=== PATIENT | male | born 1955 | race Caucasian/White ===

== ENCOUNTER 2023-12-23 20:16 | Inpatient (IN) | payer OTHER, SELFPAY ==
[2023-12-23 14:48] VITALS: BMI 32.4
[2023-12-23 14:55] LABS: Glucose - Point of Care 110 mg/dl (70-99)
[2023-12-23 15:00] VITALS: BP 157/80
[2023-12-23 15:22] LABS: % Basophils 0.4 % (0-2); % Eosinophils 0.3 % (0-6); % Immature Granulocytes 1.3 % (0-0.5); % Lymphocytes 10.2 % (20.5-51.1); % Monocytes 11.5 % (1.7-9.3); % Neutrophils 76.3 % (42.2-75.2); Absolute Immature Granulocytes 0.1 10^3/uL (0-0.05); Absolute Monocytes 1.2 10^3/uL (0.1-0.6); Absolute Neutrophils 7.6 10^3/uL (1.4-6.5); Hemoglobin 13.2 g/dL (13.0-18.0); Mean Corp Hgb Conc. 34.7 g/dL (33.0-37.0); Mean Corpuscular Hgb 32.8 pg (27.0-31.0); Mean Corpuscular Volume 94.5 fL (80.0-94.0); Mean Platelet Volume 9.8 fL (7.4-10.4); Nucleated Red Blood Cells % 0 % (-); Platelet Count 216 10^3/uL (130-400); Red Blood Cell Count 4.02 10^6/uL (4.70-6.10); Red Cell Dist. Width 14.5 % (11.5-14.5)
--- NOTE | 2023-12-23 15:30 | EDRN ---
PER EMS: The sisters who were in the home stated that jsoe daniel had called aging services and department of aging r/t condition of Pt home and inability to care for himself. EMS stated that there was a lot of moldy/ spoiled food left out on the counters
and around the residence.
[2023-12-23 15:38] LABS: ALT (SGPT) 19 U/L (0-50); AST (SGOT) 33 U/L (17-59); Albumin 3.7 g/dl (3.5-5.0); Alkaline Phosphatase 64 U/L (38-126); Blood Urea Nitrogen 10 mg/dl (9-20); Calcium 8.9 mg/dl (8.4-10.2); Carbon Dioxide 28 mmol/L (22-30); Chloride 102 mmol/L (98-107); Estimated Creatinine Clearance 119 ml/min; Glucose 105 mg/dl (70-99); Potassium 3.9 mmol/L (3.5-5.1); Sodium 138 mmol/L (135-145); Total Bilirubin 0.7 mg/dl (0.2-1.3); Total Protein 6.9 g/dl (6.3-8.2); eGFR > 60.00
--- NOTE | 2023-12-23 15:57 | ED.GENMED ---
History of Present Illness
General
Chief Complaint: Blood Sugar Problem
Source: patient, records and ambulance crew
Exam Limitations: none
Time Seen by Provider: 12/23/23 14:52
Nursing documentation reviewed up to this point in time: agreed with
Travel History
Have you had any contact with someone who has COVID-19?: No
Do you have any symptoms of coronavirus? Fever > 100 degrees, chills, cough, shortness of breath, sore throat, loss of taste or smell, muscle aches, or headache?: No
History of Present Illness
History of Present Illness:
Patient is 68-year-old diabetic who was found to have a blood sugar around 10 today and was given D10 by paramedics getting his blood sugar up to over 100. Patient had not been [place] for 3 days from his sister who stopped by and found the patient.
Patient denies any head or neck pain. Patient denies chest pain, shortness of breath or palpitations. Patient denies fever or chills. Patient denies any abdominal pain, nausea, vomiting, diarrhea. Patient denies any extremity pain. Patient has
a history of similar episodes of taking insulin and not eating. Patient also has a history of alcohol abuse.
Past History
Past History
ED Past Medical History: GERD (Gastritis), HTN, IDDM, Seizures, Psychiatric (bipolar disorder, panic disorder, suicide attempt, Depression) and Other (Anxiety, alcohol abuse, bipolar disorder, arthritis, lumbar disc disease)
ED Past Surgical History: Other (partial gastrectomy 3/4 stomach removed after drinking bleach, hernia repair)
Social History
Tobacco: Former smoker
Alcohol: Chronic alcoholic
Drug: None
Personal:
Living: alone
Employment: Disabled
Family History
Family History: Other (non contributory)
Review of Systems
Review of Systems
All Other Systems: ROS reviewed and negative except as documented in HPI and ROS
Constitutional: Reports no symptoms
EENT: Reports no symptoms
Respiratory: Reports no symptoms
Cardiac: Reports no symptoms
ABD/GI: Reports no symptoms
: Reports no symptoms
Musculoskeletal: Reports no symptoms
Skin: Reports no symptoms
Neurological: Reports no symptoms
Hematologic/Lymphatic: Reports no symptoms
Phy Exam
Physical Exam
Physical Exam:
Physical Exam
General: No apparent distress, alert and appropriate, well nourished, well hydrated. Cool to the touch
HENT: Normocephalic and atraumatic as well as nontender, supple with no lymphadenopathy, no thyromegaly
Eyes: Clear sclera, conjuctiva without injection
Heart: Regular rhythm and rate. No S3, S4. No murmur. No NVD, bruit
Lungs: No respiratory distress, no stridor, lung sounds clear and equal bilaterally, chest wall symmetrical and nontender
Abdomen: Soft, nontender, no organomegaly, BS good
Neuro: Alert and oriented x 3, CN II - XII intact, no motor focality, no cerebellar dysfunction
Skin: no rash
Psychiatric: well kept. interactive and cooperative
Extremities: No edema, cyanosis, tenderness, Good and equal peripheral pulses.
Course
Orders/Labs/Results
Orders:
Orders
12/23/23 14:52
EKG [Electrocardiogram (*1)] Urgent
Reason for Study: Shortness of Breath
12/23/23 14:53
EKG- Treatment ONCE
12/23/23 14:56
Urinalysis Reflex To Culture Urgent
12/23/23 15:01
Alcohol Urgent
Complete Blood Count/With Diff Urgent
Comprehensive Metabolic Panel Urgent
Abnormal Lab Results
12/23/23 12/23/23 12/23/23
14:54 15:01 18:20
RBC 4.02 L 10^6/uL
(4.70-6.10)
Hct 38.0 L %
(39.0-52.0)
MCV 94.5 H fL
(80.0-94.0)
MCH 32.8 H pg
(27.0-31.0)
Abs Immat Gran (auto) 0.1 H 10^3/uL
(0-0.05)
Absolute Neuts (auto) 7.6 H 10^3/uL
(1.4-6.5)
Absolute Lymphs (auto) 1.0 L 10^3/uL
(1.2-3.4)
Absolute Monos (auto) 1.2 H 10^3/uL
(0.1-0.6)
Immature Gran % 1.3 H %
(0-0.5)
Neutrophils % 76.3 H %
(42.2-75.2)
Lymphocytes % 10.2 L %
(20.5-51.1)
Monocytes % 11.5 H %
(1.7-9.3)
Glucose 105 H mg/dl
(70-99)
POC Glucose 110 H mg/dl 228 H mg/dl
(70-99) (70-99)
12/23/23 15:01
12/23/23 15:01
Vital Signs
Initial and Last Documented VS:
Initial Vital Signs
Temp Pulse Resp
98.5 F 106 18
12/23/23 14:48 12/23/23 14:48 12/23/23 14:48
Last Documented Vital Signs
Temp Pulse Resp BP Pulse Ox
97.4 F 81 19 135/76 97
12/23/23 17:01 12/23/23 18:30 12/23/23 18:30 12/23/23 18:13 12/23/23 18:30
*Radiology
Radiology exam reviewed: other (na)
*Pulse Oximetry
Patient hypoxic: no
*EKG
Interpreted by ED Provider?: Yes
EKG Intrepretation Date: 12/23/23
EKG Intrepretation Time: 16:00
Interpretation: normal
Comparison EKG: no changes
Heart Rate: 74
Rate: normal
Rhythm: sinus
[place]: normal axis
Interval: normal interval
QRS Pattern: normal QRS
Ischemia: no ischemia
*Box Nailer Interpretation
Rate: normal
Interpretation: normal
Heart Rate: 80
Rhythm: sinus
*Critical Care Note
Total Time (30-74mins, 75-104mins- exclusive of procedures): Not Applicable
Update Note
Update Note:
Patient has become Normothermic. Anticipated being able to send the patient home once this occurred. However the department on the aging called and the patient lives in the high level that is disheveled without food and they are asking that we
keep the patient has a social admission.
ED Attending Note
-
Portions of this chart may have been created with voice recognition software.� Occasional wrong word or��sound alike� substitutions may have occurred due to the inherent limitations of voice recognition software.
Discharge Plan
Departure
Patient Disposition: Admit
Date of Disposition: 12/23/23
Time of Disposition: 19:09
Admit to: Med/Surg
Admit to doctor: Hospitalist
Presentation/result/management discussed w/ accepting MD/DO: Hospitalist
Patient with high blood pressure during this ER visit?: No
Condition: Fair
Covid-19: Not Applicable
Discharge Problem:
Hypothermia, Hypoglycemia, Hospital admission due to social situation
Prescriptions:
No Action
furosemide 20 mg tablet
20 mg PO WEEKLY
Rx Instructions:
m/w/f
quetiapine 200 mg Tablet
200 mg PO DAILY
Rx Instructions:
QUETIAPINE 200MG IN AM AND QUETIAPINE ER 800MG AT BEDTIME
thiamine HCl (vitamin B1) [Vitamin B-1] 100 mg Tablet
100 mg PO DAILY
buspirone 10 mg Tablet
10 mg PO TID
divalproex 500 mg Tablet Extended Release 24 Hr
1,000 mg PO HS
gabapentin 300 mg Capsule
300 mg PO TID
mirtazapine 45 mg Tablet
45 mg PO HS
aspirin 81 mg Tablet,Chewable
81 mg PO DAILY
quetiapine 400 mg Tablet Extended Release 24 Hr
800 mg PO HS
tamsulosin 0.4 mg Capsule
0.4 mg PO DAILY Qty: 30 0RF
metoprolol succinate 25 mg Tablet Extended Release 24 Hr
25 mg PO DAILY 30 Days Qty: 30 0RF
cholecalciferol (vitamin D3) [Vitamin D3] 50 mcg (2,000 unit) Tablet
50 mcg PO WEEKLY
rosuvastatin 40 mg Tablet
40 mg PO DAILY
Referrals:
UNKNOWN - PT DOES,NOT KNOW [Family Provider] -
Interventions
Interventions:
*Risk Screen - Suicide Last Done: 12/23/23 14:48
*General Assessment Last Done: 12/23/23 14:48
*Neglect/Abuse Screening Last Done: 12/23/23 14:48
*ED COVID-19 Vaccine History Last Done: 12/23/23 15:43
ED- Neurological Assessment Last Done: 12/23/23 15:18
[2023-12-23 16:07] VITALS: BP 119/78
[2023-12-23 17:01] VITALS: BP 146/80
--- NOTE | 2023-12-23 17:10 | EDRN ---
Pt ate a box lunch and gingerale.
[2023-12-23 18:13] VITALS: BP 135/76
[2023-12-23 18:23] LABS: Glucose - Point of Care 228 mg/dl (70-99)
--- NOTE | 2023-12-23 18:34 | EDRN ---
Sister Shanta Barrientos, called X2 without answer. Pt also attempted without answer. [phone]
[2023-12-23 19:00] VITALS: BP 136/90
--- NOTE | 2023-12-23 19:28 | PHANOTE ---
Med Rec Note:
Pt unsure of medications but was able to confirm the names of his medications. States Paramedics took a picture of his medications, but that picture was not given to . Asked pt what pharmacy he uses he stated '[facility]' and he receives
blister packs.
Dr Greco is not showing any recent medication fills, and that he was using [facility], Pt has not been seen in [facility] since 2020, and most recent admission/discharge was March of 2023.
Tried calling pt's sister Shanta ([phone]), no answer.
Home med list left unconfirmed due to being unable to confirm what he is actually taking at home.
--- NOTE | 2023-12-23 19:35 | HPS.HSE ---
Addendum entered and electronically signed by Jerry Marie MD 12/23/23 21:37:
12/23/23
19:55
Valproic Acid 26.2 L
HCT: No acute intracranial abnormality noted.
Original Note:
Family Physician
-
Family Physician: NOT KNOW UNKNOWN - PT DOES
Chief Complaint
-
AMS, very low BG
History of Present Illness
68M Diabetic on insulin, ETOH use, Bipolar Dx (NOS) evaalutation for AMS founnd decresed resposnivenss at home by sister. BG was 10. EMS gave D10 and BG is is over 100.
HX similar episodes of taking insulin and not eating. Patient also has a history of alcohol abuse.
ROS
Denies any head or neck pain.
Denies chest pain, shortness of breath or palpitations.
Denies fever or chills.
Denies any abdominal pain, nausea, vomiting, diarrhea.
Denies any extremity pain.
Medical History
Past Medical History
Past Medical History: Reports Arrhythmia (prx AB ), Hypercholesterolemia, Hypothyroidism, IDDM, Psychiatric (Bipolar unspecified ) and Other (ETOH use disorder )
Past Surgical History: Reports None
Social History
Tobacco: Non-smoker
Alcohol: Occasional
Drug: None
Family History
Family History: Not pertinent
Allergies / Home Medications
Allergies reflects when Allergies were last updated in [facility].
Home Medications with original date entered in [facility]
Allergy/Medication List:
Allergies
Allergy/AdvReac Type Severity Reaction Status Date / Time
iodine [Iodine] Allergy flushing Verified 08/25/23 14:14
Penicillins Allergy Hives, Verified 08/25/23 14:14
flushing
venom-honey bee Allergy Anaphylaxis Verified 08/25/23 14:14
[bee venom (honey bee)]
Home Medications
furosemide 20 mg tablet 20 mg PO WEEKLY Fluid retention/Swelling 03/26/23
aspirin 81 mg chewable tablet 81 mg PO DAILY Blood clot prevention/tx 03/27/23
buspirone 10 mg tablet 10 mg PO TID Mental Health/Anxiety 03/27/23
divalproex 500 mg tablet,extended release 24 hr 1,000 mg PO HS Mental Health/Anxiety 03/27/23
gabapentin 300 mg capsule 300 mg PO TID ALCOHOL CONTROL 03/27/23
mirtazapine 45 mg tablet 45 mg PO HS Mental Health/Anxiety 03/27/23
quetiapine 200 mg tablet 200 mg PO DAILY Mental Health/Anxiety 03/27/23
quetiapine 400 mg tablet,extended release 24 hr 800 mg PO HS Mental Health/Anxiety 03/27/23
thiamine HCl (vitamin B1) 100 mg tablet (Vitamin B-1) 100 mg PO DAILY Supplement 03/27/23
metoprolol succinate 25 mg tablet,extended release 24 hr 25 mg PO DAILY 30 days #30 tabs 03/29/23
cholecalciferol (vitamin D3) 50 mcg (2,000 unit) tablet (Vitamin D3) 50 mcg PO WEEKLY 12/23/23
rosuvastatin 40 mg tablet 40 mg PO DAILY 12/23/23
Review of Systems
-
Constitutional: Reports No Symptoms
EENT: Reports No Symptoms
Respiratory: Reports No Symptoms
Cardiac: Reports No Symptoms
Abdomen/GI: Reports No Symptoms
: Reports No Symptoms
Musculoskeletal: Reports No Symptoms
Skin: Reports No Symptoms
Neurological: Reports See HPI
Endocrine: Reports No Symptoms
Hematologic/Lymphatic: Reports No Symptoms
Psych: Reports No Symptoms
Physical Exam
Vital Signs
Vital Signs
Temp Pulse Resp BP Pulse Ox
99.0 F 81 19 135/76 97
12/23/23 19:09 12/23/23 18:30 12/23/23 18:30 12/23/23 18:13 12/23/23 18:30
Physical Exam
General: Other (see below )
Laboratory Results
-
12/23/23 15:01
12/23/23 15:01
Laboratory Results
Total Bilirubin 0.7 mg/dl (0.2-1.3) 12/23/23 15:01
AST 33 U/L (17-59) 12/23/23 15:01
ALT 19 U/L (0-50) 12/23/23 15:01
Alkaline Phosphatase 64 U/L (38-126) 12/23/23 15:01
Data Reviewed
-
CT Scan: Other (pending HCT )
Lab Data: Labs Reviewed by me
Old Records: Reviewed
Impression/Plan
-
Reviewed VS: Tmin 93.4 --> 99.0 otherwise unremarkable
PE
Gen: alert and appropriate. NAD
HEENT: atraumatic as well as nontender scalp
Neck: supple
Lungs: symmetric AE
Cor: RRR S1 S2
Abdomen: Soft, nontender
RIVET HOLE MACHINE OPERATOR: AAO3, NFND, intact coordination
MS: no edema
Psych: well kept. interactive and cooperative
Data
nl WCC MCV 94.5^
nl BMP
nl LFTs
SBG 105 - BG 228
NEG ETOH
UA pending
Pending Valporate lever
Pending HCT
EKG report
NORMAL SINUS RHYTHM
NORMAL ECG
WHEN COMPARED WITH ECG OF 26-MAR-2023 23:33,
NONSPECIFIC T WAVE ABNORMALITY NOW EVIDENT IN LATERAL LEADS
Last admission 03/27/23- 03/29/23
DX : altered mental status due to severely hypoglycemic.
ASSESSMENT & PLAN
Pending Rx reconciliation
S/p AMS - metabolic encephalopathy due to severe symptomatic hypoglycemia - rapidly improved s/p D10
Hypothermic suspect due to cold environmental exposure duering AMS - normalized T ar ER
Found less responsive on the floor
Non focal neuro defit on exam
- HCT to complete w/u
- check TSH, UA
- supportive care : IVF
- PT/OT
- monitoring tech
S/p symptomatic hypoglycemia due to took insulin and missed measls
IDDM
- add ISS low inclusive of hypoglycemic protocol
- held HOTEL RECEPTIONIST Insulin till stable
- can eat
ETOH use disorder ; NEG ETOH thus at risk for ETOH WDS
- MSAS protocol
HX Prx AF with RVR in March 2023
[id number] score 3 for age, hypertension, diabetes.
Of note; He was evaluated by [facility] card in March 2023 as below
- concerns for anticoagulation with fall risk in setting of alcohol use disorder
- Medication noncompliance in past.
- cont HOTEL RECEPTIONIST ASA and Metoprolol succinate
Essential hypertension
- on Frusemide and Metoprolol XL
GERD
Anxiety/depression/bipolar
- Await Valproate level
- cont. Valproate and HOTEL RECEPTIONIST Psych meds except Seroquel due to AMS upon admission
Lumbar disc disease
Hypercholesterolemia on Rosuvastatin
DVT Px: LMWH
Code: Full
IP TLM
[2023-12-23 20:32] LABS: Depakane 26.2 ug/ml (50.0-120.0)
[2023-12-23 20:53] LABS: TSH 0.94 uIU/ml (0.47-4.68)
[2023-12-23 21:01] VITALS: BP 164/89; BMI 29.4
[2023-12-23 21:24] LABS: INR 1.04; PT 13.4 Sec (11.4-14.6)
[2023-12-23] MEDS: NSS 1000 IV (21:47)
[2023-12-23] MEDS: ATIVAN 1 MG IV (21:50)
[2023-12-23] MEDS: THIAMINE INJECTION 200 MG IV (21:50)
[2023-12-23] MEDS: NSS (PRESERVATIVE FREE) 0.5 ML IV (21:52)
[2023-12-23 21:55] LABS: Glucose - Point of Care 246 mg/dl (70-99)
--- NOTE | 2023-12-23 22:34 | PTCARENOTE ---
Addendum entered by Brooke Arciniega RN 12/24/23 00:44:
Unable to verify home medications, pt is poor historian does not recall doses or when last taken.
Original Note:
Pt received from ED via stetcher. Pivoted from stretcher to bed w/assist, very unsteady gait, profoundly tremulous. AAOx3, anxious, forgetful. Telemetry = SR. Oriented to surroundings and plan of care discussed. Admission and assessment
completed. Pt reports 'drinking in excess' admits to 15-30 8% beers 2-3 times a week. Believes last drink was 3-4 days ago, unsure. MSAS = 5. Medicated w/ 1mg IV ativan. Accucheck = 246. Reports hunger, boxed lunch provided, consumed 100%.
IVF infusing via #20 RAC without complication. Bed alarm placed for safety. Call paige within reach. Will continue to closely monitor.
[2023-12-24] VITALS (7 sets, daily range): BP systolic 132–147; BP diastolic 71–84; BMI 29.4
[2023-12-24] MEDS: ATIVAN 1 MG IV (01:08)
[2023-12-24] MEDS: NSS (PRESERVATIVE FREE) 0.5 ML IV (01:10)
[2023-12-24 04:06] LABS: Urine Albumin Negative (Neg - Trace); Urine Bilirubin 1+ (Negative); Urine Character Clear (Clear); Urine Color Amber; Urine Glucose 3+ (Negative); Urine Ketone 1+ (Negative); Urine Leukocyte Negative (Negative); Urine Nitrite Negative (Negative); Urine Occult Blood Negative (Negative); Urine Specific Gravity 1.015 (<1.030); Urine Urobilinogen 4+ (Neg - 1+)
[2023-12-24 06:35] LABS: Hematocrit 33.2 % (39.0-52.0); Hemoglobin 11.6 g/dL (13.0-18.0); Mean Corp Hgb Conc. 34.9 g/dL (33.0-37.0); Mean Corpuscular Hgb 32.8 pg (27.0-31.0); Mean Corpuscular Volume 93.8 fL (80.0-94.0); Mean Platelet Volume 10.3 fL (7.4-10.4); Platelet Count 215 10^3/uL (130-400); Red Blood Cell Count 3.54 10^6/uL (4.70-6.10); Red Cell Dist. Width 14.7 % (11.5-14.5); White Blood Cell Count 6.4 10^3/uL (4.8-10.8)
[2023-12-24 06:54] LABS: Blood Urea Nitrogen 14 mg/dl (9-20); Calcium 8.5 mg/dl (8.4-10.2); Carbon Dioxide 26 mmol/L (22-30); Chloride 100 mmol/L (98-107); Estimated Creatinine Clearance 96 ml/min; Glucose 200 mg/dl (70-99); Sodium 133 mmol/L (135-145); eGFR > 60.00
[2023-12-24 07:13] LABS: Glucose - Point of Care 205 mg/dl (70-99)
[2023-12-24] MEDS: THIAMINE INJECTION 200 MG IV ×2 (08:44→20:08)
[2023-12-24] MEDS: FOLVITE 1 MG PO (08:44)
[2023-12-24] MEDS: LOW STRENGTH ASPIRIN 81 MG PO (08:44)
[2023-12-24] MEDS: TOPROL XL 25 MG PO (08:44)
[2023-12-24 09:00] LABS: Glycohemoglobin (HgbA1c) 7.8 % (4.0-5.6)
[2023-12-24] MEDS: NOVOLOG FLEXPEN-LOW RESISTANCE 2 UNITS SC (09:16)
[2023-12-24] MEDS: NSS 1000 IV ×2 (09:17→21:45)
--- NOTE | 2023-12-24 10:09 | W.PN.HOSP.TC ---
Addendum entered and electronically signed by Erickson Castrejon MD 01/01/24 17:35:
Moderate alcohol use disorder without dependence- uses it in binges ,no prior use of alcohol withdrawal or seizures per pt
Original Note:
Today's Communication/Plan
-
See plan above
Assessment / Plan
Assessment / Plan
S/p AMS - metabolic encephalopathy due to severe symptomatic hypoglycemia� - rapidly improved s/p D10
Hypothermic� suspect due to cold environmental exposure duering AMS -� normalized T ar ER
Found less responsive on the floor
Non focal neuro defit on exam toay
- HCT non diagnostic
- TSH ok
S/p symptomatic hypoglycemia
IDDM
Patient with severe hypoglycemia episode. Last admission in summer was also related to hypoglycemia. Based on the last discharge summary and his current insulin regimen it looks like he is following the same regimen as before and with changes
recommended. He takes 50 units of Lantus and a sliding scale.
He also has alcohol use disorder. He also lost weight since summer.
Hemoglobin A1c 7.8.
In this patient who is elderly >65, alcohol use disorder, inconsistent with oral intake, significant weight loss since summer, and severe episodes of hypoglycemia i would consider switching him from insulin regimen. Type II restart metformin. Will
explore GLP-1 and also DPP -4 inhibitors.
Consult Diabetic Nurse practiioner
Check cost of GLP-1 agonists
ETOH use disorder ; NEG ETOH thus at risk for ETOH WDS
- MSAS protocol
-Counseled about ill effects of alcohol and advised abstinence.
-No evidence of alcohol withdrawal so far.
HX� Prx AF� with RVR in March 2023
[id number] score � 3 for age, hypertension, diabetes.
Of note; He was evaluated� by [facility] card in March 2023 as below �
���- concerns for anticoagulation with fall risk in setting of alcohol use disorder
�� - Medication noncompliance in past.�
�- cont HOME HEALTH CARE PHYSICIAN ASA and� Metoprolol succinate
Essential hypertension
- on Frusemide and Metoprolol XL
GERD
Anxiety/depression/bipolar
- Await Valproate level
- cont. Valproate and HOME HEALTH CARE PHYSICIAN Psych meds except Seroquel due to AMS upon admission
Lumbar disc disease
Hypercholesterolemia on Rosuvastatin
Total time spent on today's encounter was 52 minutes which included time spent in counseling the patient/family regarding diagnosis and treatment plan as listed above, goals of care, and symptom management. Case was discussed with nursing staff,
specialists, and care coordinators/case management. All labs and imaging personally reviewed by me. Remainder the time spent in detailed review of previous records, lab data, imaging, and other medical provider documentation.
DVT Px: LMWH
Code: Full
IP TLM
Anticipated Discharge: 24 - 48 hours
Subjective/Interval History
-
Date of Service: December 24, 2023
Patient presenting with an episode of severe hypoglycemia. Had a similar episode in summer last year.
With the prior hypoglycemia episode in summer his Lantus was decreased to 20 and he was given NovoLog 10 units with a meal and metformin was discontinued.
Patient manages his own diabetes. He is tells me today that he takes 50 units of Lantus not 20. And uses a sliding scale with the meals. No metformin. He does say that he checks blood sugars if not tries but tries but cannot tell me if he was
having/experiencing hypoglycemias. He does not have a glucometer with him currently.
He was found by sister with change in mental status and when EMS checked the blood sugars there were 10.
Patient not clear about the details over the weekend what happened.
He does have alcohol problem he states he drinks couple of days a week but he binges on alcohol. When he drinks ,he drinks 30 beer a day. He thinks he was doing that on the weekend. When he drinks alcohol he does not eat. He also states that he
lost weight from 256 pounds to 216 pounds on this admission
He otherwise voices no others changes with his health in the last week or 2. Denies any fever. No nausea or vomiting. No diarrhea. No shortness of breath chest pain or palpitations.
Objective Data
-
Labs:
Laboratory Results
12/24/23
05:07
WBC 6.4
Hgb 11.6 L
Hct 33.2 L
Plt Count 215
Sodium 133 L
Potassium 4.0
Chloride 100
Carbon Dioxide 26
BUN 14
Creatinine 0.8
Glucose 200 H
Calcium 8.5
Vital Signs:
Vital Signs
Temp Pulse Resp BP Pulse Ox
98.7 F 77 16 143/71 94
12/24/23 07:26 12/24/23 08:44 12/24/23 07:26 12/24/23 08:44 12/24/23 07:26
I&O
12/23/23 12/24/23 12/25/23
06:59 06:59 06:59
Intake Total 1200 / 1200
Balance 1200 / 1200
Review of Systems
-
Constitutional: Denies Fever
EENT: Denies Sore Throat
Respiratory: Denies Cough
Genitourinary: Denies Dysuria
Neuro: Denies Dizzy
Physical Exam
-
General: Well Nourished
HEENT: Moist Mucous Membranes
Respiratory: Clear to Auscultation
Cardiac: Regular Rhythm and S1/S2; Negative Tachycardic
GI: Soft, Nontender, Nondistended and Normal Bowel Sounds
Neuro: AO x 3; Negative No Motor Deficits, Slurred Speech or Facial Droop
Psych: Calm; Negative Confused or Agitated
Data Reviewed
-
Labs: Labs Reviewed by me
--- NOTE | 2023-12-24 10:32 | PN.DE.MGMTRT ---
Insulin Management
- -
12/24/2023: Diabetes Management consult
68 year old male admitted with recurrent episodes of hypoglycemia. Pt well known to Diabetes service from previous admission for same reason
PMH: HTN, HLD, seizures, bipolar disorder, depression, anxiety, alcohol use disorder, lumbar disc disease, GERD and T2DM.
Was taking Metformin 1000mg in am, 500mg pm, Lantus 50 units @ HS and Humalog SS. Current A1C 7.8%, was 7.6% on 03/26/23, Cr 0.8, eGFR >60
States he has a working meter and regularly monitors his blood sugars. Has no Endo but closely follows with is PCP at [facility].
His glucose on admission was 105 and premeal range has been 110-286, requiring 2-4 units of corrective insulin. No other insulin has been administered since admission to hospital.
Will cautiously resume Basal insulin at reduced dose of Lantus 20 units @ HS in combination with oral regimen: Metformin 850mg BID and Januvia 100mg daily, 1st dose in AM. Change to low corrective insulin with meals.
Will closely monitor and reassess need to adjust further.
Diabetes History
- -
Type of Diabetes: 2 requiring insulin
Pre-Admission Diabetes Regimen
12/23/23 12/24/23
15:01 05:07
Creatinine 0.7 0.8
Lab Results
Hemoglobin A1c 7.8 % (4.0-5.6) H 12/24/23 05:07
Insulin Pump Settings
IP Diabetes Regimen
12/23/23 12/23/23 12/23/23
14:54 15:01 18:20
Glucose 105 H
POC Glucose 110 H 228 H
12/23/23 12/24/23 12/24/23
21:53 05:07 07:11
Glucose 200 H
POC Glucose 246 H 205 H
Meal type: Breakfast
Amount consumed: 100%
Patient Education
--- NOTE | 2023-12-24 10:35 | PTCARENOTE ---
pt aaox3. forgetful at times. msas as documented. pt states no pain or anxious. room air breath sounds diminished. ivf running as ordered.
[2023-12-24 11:01] LABS: Glucose - Point of Care 286 mg/dl (70-99)
[2023-12-24] MEDS: NOVOLOG FLEXPEN-LOW RESISTANCE 3 UNITS SC (11:49)
--- NOTE | 2023-12-24 13:00 | CM ---
Reviewed the chart notes and spoke with the patient at the bedside. CM consults for substance abuse and neal for Jere and Denise received. Patient declined offer of resources for substance abuse. Patient is part of [facility]
([phone]). Call placed to [facility] pharmacy ([phone]). Per pharmacist, either medication would be covered at 100% if the patient's PCP orders it.
The patient resides alone in an apartment with elevator access ([facility]). The patient uses a rollator with ambulation and has shower rails in shower. The patient has a nurse that visits once monthly and a dental assistant teacher once weekly for assistance with
chores. The patient anticipates being discharged to home with resumption of his [facility]. CM continues to be available to patient/family and is monitoring medical plan for needs at discharge.
Plan: Discharge to home with resumption of [facility].
[2023-12-24 14:18] LABS: Cortisol, Random 7.6 ug/dl
[2023-12-24 16:12] LABS: Glucose - Point of Care 321 mg/dl (70-99)
[2023-12-24] MEDS: NOVOLOG FLEXPEN-LOW RESISTANCE 4 UNITS SC (16:15)
[2023-12-24] MEDS: LOVENOX 40 MG SC (17:14)
[2023-12-24] MEDS: NOVOLOG FLEXPEN 10 UNITS SC (17:15)
[2023-12-24 19:23] LABS: Hepatitis C Antibody Negative (Negative)
[2023-12-24 21:17] LABS: Glucose - Point of Care 223 mg/dl (70-99)
[2023-12-24] MEDS: LANTUS 0.200000000000000011 UNITS SC (21:19)
[2023-12-24] MEDS: MELATONIN 5 MG PO (23:52)
[2023-12-24] MEDS: BUSPAR 10 MG PO (23:52)
[2023-12-25] MEDS: REMERON 45 MG PO (00:04)
[2023-12-25] MEDS: DEPAKOTE ER (24 HR RELEASE) 1000 MG PO (00:09)
[2023-12-25 03:44] VITALS: BP 131/73
[2023-12-25 07:46] LABS: Glucose - Point of Care 176 mg/dl (70-99)
[2023-12-25 07:58] VITALS: BP 135/78
--- NOTE | 2023-12-25 08:18 | PN.DE.MGMTRT ---
Insulin Management
- -
12/24/2023: Diabetes Management consult
68 year old male admitted with recurrent episodes of hypoglycemia. Pt well known to Diabetes service from previous admission for same reason
PMH: HTN, HLD, seizures, bipolar disorder, depression, anxiety, alcohol use disorder, lumbar disc disease, GERD and T2DM.
Was taking Metformin 1000mg in am, 500mg pm, Lantus 50 units @ HS and Humalog SS. Current A1C 7.8%, was 7.6% on 03/26/23, Cr 0.8, eGFR >60
States he has a working meter and regularly monitors his blood sugars. Has no Endo but closely follows with is PCP at [facility].
His glucose on admission was 105 and premeal range has been 110-286, requiring 2-4 units of corrective insulin. No other insulin has been administered since admission to hospital.
Will cautiously resume Basal insulin at reduced dose of Lantus 20 units @ HS in combination with oral regimen: Metformin 850mg BID and Januvia 100mg daily, 1st dose in AM. Change to low corrective insulin with meals.
Will closely monitor and reassess need to adjust further.
12/25/2023 Diabetes management Follow up
Patient glucose trended up to 321 pre dinner novolog 10 units ordered. HS glucose 223, lantus 20 units given. Fasting glucose this AM 176. Will reduce AC novolog to 6 units with low corrective and increase metformin to 1000 mg BID (home dose).
Will follow glucose for ability to reduce insulin further. Both Wegovy and Rybelsus are outpatient medications.
Diabetes History
- -
Type of Diabetes: 2 requiring insulin
Pre-Admission Diabetes Regimen
Lab Results
Hemoglobin A1c 7.8 % (4.0-5.6) H 12/24/23 05:07
Insulin Pump Settings
IP Diabetes Regimen
12/24/23 12/24/23 12/24/23
11:00 16:11 21:14
POC Glucose 286 H 321 H 223 H
12/25/23
07:44
POC Glucose 176 H
Meal type: Breakfast
Amount consumed: 100%
Patient Education
[2023-12-25] MEDS: NOVOLOG FLEXPEN-LOW RESISTANCE 1 UNITS SC (08:51)
[2023-12-25] MEDS: LOW STRENGTH ASPIRIN 81 MG PO (08:52)
[2023-12-25] MEDS: GLUCOPHAGE 1000 MG PO ×2 (08:52→16:23)
[2023-12-25] MEDS: TOPROL XL 25 MG PO (08:52)
[2023-12-25] MEDS: THIAMINE INJECTION 200 MG IV (08:52)
[2023-12-25] MEDS: JANUVIA 100 MG PO (08:52)
[2023-12-25] MEDS: BUSPAR 10 MG PO ×2 (08:52→16:23)
[2023-12-25] MEDS: FOLVITE 1 MG PO (08:52)
[2023-12-25] MEDS: NOVOLOG FLEXPEN 6 UNITS SC ×2 (08:53→12:42)
--- NOTE | 2023-12-25 10:48 | W.PN.HOSP.TC ---
Today's Communication/Plan
-
DC
Assessment / Plan
Assessment / Plan
S/p AMS - metabolic encephalopathy due to severe symptomatic hypoglycemia� - rapidly improved s/p D10
Hypothermic� suspect due to cold environmental exposure duering AMS -� normalized T ar ER
Found less responsive on the floor
Non focal neuro defit on exam
- HCT non diagnostic
- TSH ok
S/p symptomatic hypoglycemia
IDDM
Patient with severe hypoglycemia episode. Last admission in summer was also related to hypoglycemia. Based on the last discharge summary and his current insulin regimen it looks like he is following the same regimen as before and with changes
recommended. He takes 50 units of Lantus and a sliding scale.
He also has alcohol use disorder. He also lost weight since summer.
Hemoglobin A1c 7.8.
In this patient who is elderly >65, alcohol use disorder, inconsistent with oral intake, significant weight loss since summer, and severe episodes of hypoglycemia i would consider switching him from insulin regimen. Type II restart metformin.
GLP-1 agonist are covered by insurance. Unfortunately cannot start in hospital.
Diabetic Nurse practiioner input noted-resumed metformin. Fawn added. Patient advised to decrease Lantus to 20 units at bedtime and continue with mealtime insulin. He was also advised to follow-up with PCP and transition into a GLP-1 agonist
from insulin
He was strongly advised to quit alcohol for not only reasons of alcohol related complication but as it is coming in the way of his diabetes management.
No further hypoglycemia episodes
ETOH use disorder ; NEG ETOH thus at risk for ETOH WDS
-Counseled about ill effects of alcohol and advised abstinence.
-No evidence of alcohol withdrawal so far.
-2 to 3 months ago he said he went into outpatient alcohol rehab and abstinent for a month but as soon as he finished the rehab he went back to alcohol. Encouraged him again to get back to the alcohol rehab program.
HX� Prx AF� with RVR in March 2023
[id number]-AXPs score � 3 for age, hypertension, diabetes.
Of note; He was evaluated� by [facility] card in March 2023 as below �
���- concerns for anticoagulation with fall risk in setting of alcohol use disorder
�� - Medication noncompliance in past.�
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
Essential hypertension
- on Frusemide and Metoprolol XL
GERD
Anxiety/depression/bipolar
- Await Valproate level
- cont. Valproate and PRODUCT DEVELOPMENT WORKER Psych meds except Seroquel due to AMS upon admission
Lumbar disc disease
Hypercholesterolemia on Rosuvastatin
Medically stable for discharge home
Anticipated Discharge: Today
Subjective/Interval History
-
Date of Service: December 25, 2023
No overnight events.
No hypoglycemias.
Does not feel tremulous. No nausea vomiting.
Objective Data
-
Vital Signs:
Vital Signs
Temp Pulse Resp BP Pulse Ox
98.2 F 68 16 135/78 95
12/25/23 07:58 12/25/23 07:58 12/25/23 07:58 12/25/23 07:58 12/25/23 07:58
I&O
12/24/23 12/25/23 12/26/23
06:59 06:59 06:59
Intake Total 1200 / 1200 4320 / 4320
Output Total 800 / 800
Balance 1200 / 1200 3520 / 3520
Review of Systems
-
Constitutional: Denies Fever or Chills
EENT: Denies Sore Throat
Respiratory: Denies Cough or Trouble Breathing
Cardiac: Denies Chest Pain
Abdomen/GI: Denies Abdominal Pain
Neuro: Denies Dizzy
Physical Exam
-
General: No Apparent Distress
HEENT: Moist Mucous Membranes
Respiratory: Clear to Auscultation
Cardiac: Regular Rhythm and S1/S2
GI: Soft
Neuro: AO x 3; Negative Tremors
Psych: Calm; Negative Confused or Agitated
--- NOTE | 2023-12-25 10:59 | W.DS.TRANS ---
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
-
Discharge Instructions:
Discharge Diagnosis/Procedures Hypoglycemia; type 2 diabetes mellitus; alcohol
use disorder
Diet Diabetic, Carb Controlled
Activity As tolerated
Driving Restrictions As prior to admission
Bathing Restrictions None
Instructions:
Stand-Alone Forms:
Changes to Home Medications: Yes
Discharge Medications:
DC Medications w/original date entered in [employer]
furosemide 20 mg tablet 20 mg PO MOWEFR Fluid retention/Swelling 03/26/23
aspirin 81 mg chewable tablet 81 mg PO DAILY Blood clot prevention/tx 03/27/23
buspirone 10 mg tablet 10 mg PO TID Mental Health/Anxiety 03/27/23
divalproex 500 mg tablet,extended release 24 hr 1,000 mg PO HS Mental Health/Anxiety 03/27/23
gabapentin 300 mg capsule 300 mg PO TID ALCOHOL CONTROL 03/27/23
mirtazapine 45 mg tablet 45 mg PO HS Mental Health/Anxiety 03/27/23
quetiapine 200 mg tablet 200 mg PO DAILY Mental Health/Anxiety 03/27/23
quetiapine 400 mg tablet,extended release 24 hr 800 mg PO HS Mental Health/Anxiety 03/27/23
thiamine HCl (vitamin B1) 100 mg tablet (Vitamin B-1) 100 mg PO DAILY Supplement 03/27/23
metoprolol succinate 25 mg tablet,extended release 24 hr 25 mg PO DAILY 30 days #30 tabs 03/29/23
cholecalciferol (vitamin D3) 50 mcg (2,000 unit) tablet (Vitamin D3) 50 mcg PO WEEKLY Supplement 12/23/23
rosuvastatin 40 mg tablet 40 mg PO DAILY High Cholesterol 12/23/23
albuterol sulfate 90 mcg/actuation aerosol inhaler 2 puff inhalation QID PRN sob 12/24/23
fluticasone propionate 115 mcg-salmeterol 21 mcg/actuation HFA inhaler (Advair HFA) 2 puff inhalation BID 12/24/23
folic acid 800 mcg tablet 0.8 mg PO DAILY 12/24/23
lidocaine 4 % topical patch (Lidocaine Pain Relief) 1 patch topical BID PRN pain 12/24/23
sennosides 8.6 mg tablet (senna) 8.6 mg PO HS 12/24/23
tamsulosin 0.4 mg capsule (Flomax) 0.4 mg PO DAILY 12/24/23
folic acid 1 mg tablet 1 mg PO DAILY #30 tabs 12/25/23
insulin aspart U-100 100 unit/mL subcutaneous solution (Novolog U-100 Insulin aspart) 6 unit (0.06 mL) SC TID #0 mL 12/25/23
insulin glargine-yfgn 100 unit/mL (3 mL) subcutaneous pen 20 unit (0.2 mL) SC HS #0 mL 12/25/23
metformin 1,000 mg tablet 1,000 mg PO BID #60 tabs 12/25/23
sitagliptin phosphate 100 mg tablet (Januvia) 100 mg PO DAILY #30 tabs 12/25/23
thiamine HCl (vitamin B1) 100 mg tablet 100 mg PO DAILY #30 tabs 12/25/23
Home Medication Changes
Changes medication-decrease Lantus from 50 units to 20 units. NovoLog with meals at 6 units; increase metformin
New medication-Januvia, thiamine and folic acid for a month
Pending Results: No
--- NOTE | 2023-12-25 11:00 | W.DCSUMMARY ---
Discharge Summary
Discharge Data
Date of Admission: 12/23/23
Date of Discharge: 12/25/23
-
Pending Results: No
Hospital Course
Primary diagnosis:
Hypoglycemia
Alcohol use disorder
Secondary diagnosis:
Diabetes mellitus type 2
History of paroxysmal atrial fibrillation
Essential hypertension
Gastroesophageal reflux disease
Hyperlipidemia
Anxiety/depression/bipolar
Hospital course:
Patient presented with decreased responsiveness and encephalopathy secondary to severe hypoglycemia (blood sugars were around 10 had received treatment as an outpatient with the EMS. He was nonfocal neurologically and CT head was negative.
Patient had similar presentations in the last year with severe hypoglycemia.
I am concerned about his insulin regimen-he was advised to decrease his Lantus to 20 units but to continue to use Lantus 50 units at night. He also has alcohol use disorder can drink up to 30 beer a day and he was drinking alcohol over the weekend
before this happened. His hemoglobin A1c was 7.8.
If Patient can follow instructions carefully and avoid alcohol and have regular food intake he can help himself with preventing hypoglycemia and this was communicated with the patient. Alternatives would be in this elderly gentleman consider GLP
agonist instead of insulin regimen. Unfortunately GLP agonist cannot be started in house and so he was advised to see PCP as an outpatient. GLP-1 agonist will be fully covered. He understood the importance of avoiding hypoglycemia as it can
affect his brain permanently.
He was seen by diabetic nurse practitioner team as well. His dose of metformin was increased which I agree. Januvia was added which I agree. Lantus was cut down to 20 units and he was advised 6 units of NovoLog with meals. He has a glucometer
and checks his blood sugars at home.
He was also offered a substance abuse rehab/counseling. He has declined at this current time. He knows how to get back to outpatient follow-up alcohol rehab resources when he makes up his mind.
Discharge Plan
-
Patient Disposition: Home (Routine Discharge)
Discharge Diagnosis/Procedures: Hypoglycemia; type 2 diabetes mellitus; alcohol use disorder
Diet: Diabetic, Carb Controlled
Activity: As tolerated
Driving Restrictions: As prior to admission
Bathing Restrictions: None
Referrals:
UNKNOWN - PT DOES,NOT KNOW [Family Provider] - in less than 1 week (see PCP and discuss alternatives to insulin )
Prescriptions:
New
thiamine HCl (vitamin B1) 100 mg Tablet
100 mg PO DAILY Qty: 30 0RF
folic acid 1 mg Tablet
1 mg PO DAILY Qty: 30 0RF
Januvia 100 mg Tablet
100 mg PO DAILY Qty: 30 0RF
metformin 1,000 mg tablet
1,000 mg PO BID Qty: 60 0RF
Rx Instructions:
dose increased on this admisison
Continued
furosemide 20 mg tablet
20 mg PO MOWEFR
quetiapine 200 mg Tablet
200 mg PO DAILY
thiamine HCl (vitamin B1) [Vitamin B-1] 100 mg Tablet
100 mg PO DAILY
buspirone 10 mg Tablet
10 mg PO TID
divalproex 500 mg Tablet Extended Release 24 Hr
1,000 mg PO HS
gabapentin 300 mg Capsule
300 mg PO TID
mirtazapine 45 mg Tablet
45 mg PO HS
aspirin 81 mg Tablet,Chewable
81 mg PO DAILY
quetiapine 400 mg Tablet Extended Release 24 Hr
800 mg PO HS
metoprolol succinate 25 mg Tablet Extended Release 24 Hr
25 mg PO DAILY 30 Days Qty: 30 0RF
cholecalciferol (vitamin D3) [Vitamin D3] 50 mcg (2,000 unit) Tablet
50 mcg PO WEEKLY
rosuvastatin 40 mg Tablet
40 mg PO DAILY
sennosides [senna] 8.6 mg Tablet
8.6 mg PO HS
lidocaine [Lidocaine Pain Relief] 4 % Adhesive Patch,Medicated
1 patch TOPICAL BID PRN (Reason: pain)
tamsulosin [Flomax] 0.4 mg Capsule
0.4 mg PO DAILY
albuterol sulfate 90 mcg/actuation Hfa Aerosol Inhaler
2 puff INHALATION QID PRN (Reason: sob)
folic acid 800 mcg Tablet
0.8 mg PO DAILY
fluticasone propion-salmeterol [Advair HFA] 115-21 mcg/actuation Hfa Aerosol Inhaler
2 puff INHALATION BID
Changed
insulin aspart U-100 [Novolog U-100 Insulin aspart] 100 unit/mL Solution
6 unit SC TID Qty: 0 0RF
insulin glargine-yfgn 100 unit/mL (3 mL) Insulin Pen
20 unit SC HS Qty: 0 0RF
Discontinued
metformin 500 mg Tablet
1,000 mg PO DAILY AT 0700
metformin 500 mg Tablet
500 mg PO HS
Discharge Orders:
Discharge Patient (As Directed); Ordered 12/25/23
Ordered By: Erickson Castrejon
[2023-12-25 12:28] LABS: Glucose - Point of Care 213 mg/dl (70-99)
[2023-12-25] MEDS: NOVOLOG FLEXPEN-LOW RESISTANCE 2 UNITS SC (12:43)
--- NOTE | 2023-12-25 13:11 | PN.CDI ---
CDI
- -
CDI:
Physician Documentation Request
Admit Date: 12/23/23 20:16
Dear Doctor Cash,
Hospitalist progress notes state ' ETOH use disorder....No evidence of alcohol withdrawal so far.'
MSAS high of 5. Has received IV Ativan
/ Nursing note states 'Pivoted from stretcher to bed w/assist, very unsteady gait, profoundly tremulous MSAS =5'
If possible, please provide further specificity as outlined below:
1. Please specify the pattern of use, include all that apply:
- Use only (please indicate mild or mod/severe)
- Use with or without abuse and/or dependence
- Abuse with or without dependence
- Dependence
2. Please identify any associated manifestations
- Withdrawal
- Without withdrawal
- Other, please specify
Use of terms such as suspected, likely, concern for, or probable (associated with a specific diagnosis that is being evaluated, monitored, or treated as if it exists) are acceptable and can be coded in the inpatient setting, when documented at the
time of discharge.
Thank you,
Mali Crawford RN, BSN
CDI Specialist
tiger text
Please use your independent medical judgment in providing your response.
--- NOTE | 2023-12-25 13:21 | CM ---
Reviewed the chart notes and spoke with the patient at the bedside. The patient is being discharged today to home with resumption of [facility]. Patient's family to provide transportation home. CM continues to be available to patient/family
and is monitoring medical plan for needs at discharge.
Plan: Discharge to home with resumption of [facility] services.
== END 2023-12-25 16:46 | disposition home health service (06) | DRG 637 ==
LOC: 2 SOUTH 20:16
PROVIDERS: ADMITTING PHYSICIAN Internal Medicine; ATTENDING PHYSICIAN Internal Medicine; EMERGENCY PHYSICIAN Emergency Medicine
DX: E11.649 Type 2 diabetes mellitus with hypoglycemia without coma (principal); G93.41 Metabolic encephalopathy; G93.40 Encephalopathy, unspecified; Z91.148 Patient's other noncompliance with medication regimen for other reason; I10 Essential (primary) hypertension; K21.9 Gastro-esophageal reflux disease without esophagitis; M51.9 Unspecified thoracic, thoracolumbar and lumbosacral intervertebral disc disorder; E78.00 Pure hypercholesterolemia, unspecified; F31.9 Bipolar disorder, unspecified; F10.20 Alcohol dependence, uncomplicated
CPT/HCPCS: 70450; 80048; 80053; 80164; 81003; 82077; 82533; 82962; 83036; 84443; 85025; 85027; 85610; 86803; 93005; 99285

== ENCOUNTER 2024-02-23 23:36 | Inpatient (IN) | payer OTHER, SELFPAY ==
[2024-02-23 20:12] VITALS: BMI 28.4
[2024-02-23 20:14] VITALS: BP 137/78
[2024-02-23 20:17] VITALS: BP 137/78
[2024-02-23 20:31] LABS: % Basophils 0.6 % (0-2); % Eosinophils 1.3 % (0-6); % Immature Granulocytes 2.1 % (0-0.5); % Lymphocytes 23.2 % (20.5-51.1); % Neutrophils 63.8 % (42.2-75.2); Absolute Eosinophils 0.1 10^3/uL (0-0.7); Absolute Immature Granulocytes 0.1 10^3/uL (0-0.05); Absolute Lymphocytes 1.6 10^3/uL (1.2-3.4); Absolute Monocytes 0.6 10^3/uL (0.1-0.6); Absolute Neutrophils 4.3 10^3/uL (1.4-6.5); Hematocrit 32.7 % (39.0-52.0); Hemoglobin 11.7 g/dL (13.0-18.0); Mean Corp Hgb Conc. 35.8 g/dL (33.0-37.0); Mean Corpuscular Hgb 33.2 pg (27.0-31.0); Mean Corpuscular Volume 92.9 fL (80.0-94.0); Mean Platelet Volume 9.6 fL (7.4-10.4); Nucleated Red Blood Cells % 0.3 % (-); Platelet Count 244 10^3/uL (130-400); Red Blood Cell Count 3.52 10^6/uL (4.70-6.10); Red Cell Dist. Width 14.5 % (11.5-14.5); White Blood Cell Count 6.8 10^3/uL (4.8-10.8)
[2024-02-23 20:57] LABS: ALT (SGPT) 16 U/L (0-50); AST (SGOT) 27 U/L (17-59); Albumin 3.6 g/dl (3.5-5.0); Alkaline Phosphatase 58 U/L (38-126); Blood Urea Nitrogen 8 mg/dl (9-20); Calcium 8.7 mg/dl (8.4-10.2); Carbon Dioxide 21 mmol/L (22-30); Chloride 102 mmol/L (98-107); Estimated Creatinine Clearance 109 ml/min; Glucose 196 mg/dl (70-99); Sodium 134 mmol/L (135-145); Total Bilirubin 0.4 mg/dl (0.2-1.3); Total Protein 6.4 g/dl (6.3-8.2); eGFR > 60.00
[2024-02-23 21:00] VITALS: BP 121/70
--- NOTE | 2024-02-23 21:19 | ED.GENMED ---
History of Present Illness
General
Chief Complaint: Change in Mental Status
Source: patient
Exam Limitations: none
Time Seen by Provider: 02/23/24 20:19
Nursing documentation reviewed up to this point in time: agreed with
Travel History
Have you had any contact with someone who has COVID-19?: No
Do you have any symptoms of coronavirus? Fever > 100 degrees, chills, cough, shortness of breath, sore throat, loss of taste or smell, muscle aches, or headache?: No
History of Present Illness
History of Present Illness:
The patient is a 68-year-old man who admits to chronic alcohol use and was brought in by paramedics after his sister, who called him over the phone, thought that he sounded disoriented. Patient admits that he was recently on a drinking binge at
least 24 hours ago. Patient has a small abrasion on his left middle finger and is not sure if he fell. He reports that he felt confused earlier but now feels better, however, he admits that he feels shaky and is going through alcohol withdrawal.
He denies headache, abdominal pain, chest pain or shortness of breath. He denies neck pain and back pain.
Past History
Past History
ED Past Medical History: GERD (Gastritis), HTN, IDDM, Seizures, Psychiatric (bipolar disorder, panic disorder, suicide attempt, Depression) and Other (Anxiety, alcohol abuse, bipolar disorder, arthritis, lumbar disc disease)
ED Past Surgical History: Other (partial gastrectomy 3/4 stomach removed after drinking bleach, hernia repair)
Social History
Tobacco: Former smoker
Alcohol: Chronic alcoholic
Drug: None
Personal:
Living: alone
Employment: Disabled
Family History
Family History: Other (non contributory)
Review of Systems
Review of Systems
Allergies reviewed?: Yes
All Other Systems: ROS reviewed and negative except as documented in HPI and ROS
Constitutional: Reports fatigue
EENT: Reports no symptoms
Respiratory: Reports no symptoms
Cardiac: Reports no symptoms
ABD/GI: Reports no symptoms
: Reports no symptoms
Musculoskeletal: Reports no symptoms
Skin: Reports other (Mild abrasion left middle finger)
Neurological: Reports other (Confusion)
Endocrine: Reports no symptoms
Hematologic/Lymphatic: Reports no symptoms
Psychiatric: Reports no symptoms
Phy Exam
Physical Exam
Physical Exam:
Physical Exam
General: Patient appears disheveled. Dried blood right eyebrow, however, no obvious abrasion or laceration to the face.
Neck: supple. Dry mucous membrane. Nontender C-spine
Heart: Tachycardic
Lungs: no acute respiratory distress. clear bilaterally. No vertebral spine tenderness
Abdomen: normal bowel sounds. not tender. no CVAT
Neuro: alert and orientedx3. no focal neurological deficits. Bilateral hand tremor
Skin: Mild skin abrasion dorsal aspect of left third finger
Psychiatric: well kept. interactive and cooperative
Extremities: No bony tenderness of upper or lower extremities. No deformity or swelling noted.
Course
Orders/Labs/Results
Orders:
Orders
02/23/24 20:23
Alcohol Urgent
Complete Blood Count/With Diff Urgent
Comprehensive Metabolic Panel Urgent
02/23/24 21:17
Electrocardiogram (*1) Urgent
Reason for Study: Tachycardia
EKG- Treatment ONCE
02/23/24 21:18
Add On- LAB Urgent
Tests Added?: alcohol quantative
CT Head W/o Iv Contrast Urgent
Comment:
Reason For Exam: disoriented, possible fall
Urinalysis Reflex To Culture Urgent
02/23/24 21:19
Lorazepam [Ativan] 1 mg IV NOW STA
02/23/24 22:00
0.9% Sodium Chloride 1000 ml [Nss] 1,000 ml Mvi, Adult [Multivitamin] 10 ml Thiamine Injection 100 mg IV Wide Open mls/hr
Abnormal Lab Results
02/23/24
20:23
RBC 3.52 L 10^6/uL
(4.70-6.10)
Hgb 11.7 L g/dL
(13.0-18.0)
Hct 32.7 L %
(39.0-52.0)
MCH 33.2 H pg
(27.0-31.0)
Abs Immat Gran (auto) 0.1 H 10^3/uL
(0-0.05)
Immature Gran % 2.1 H %
(0-0.5)
Sodium 134 L mmol/L
(135-145)
Carbon Dioxide 21 L mmol/L
(22-30)
BUN 8 L mg/dl
(9-20)
Glucose 196 H mg/dl
(70-99)
02/23/24 20:23
02/23/24 20:23
Vital Signs
Initial and Last Documented VS:
Initial Vital Signs
Temp Pulse Resp BP Pulse Ox
98.6 F 101 24 137/78 91
02/23/24 20:14 02/23/24 20:14 02/23/24 20:14 02/23/24 20:14 02/23/24 20:14
Last Documented Vital Signs
Temp Pulse Resp BP Pulse Ox
98.6 F 83 16 121/70 97
02/23/24 20:14 02/23/24 23:30 02/23/24 23:30 02/23/24 21:00 02/23/24 23:30
MDM/Problems Addressed
Differential Diagnosis Includes:
Acute alcohol withdrawal, hyponatremia, intracranial hemorrhage
MDM/Problems Addressed:
Patient presents with acute confusion and tachycardia
Chronic conditions affecting care:
Alcoholism
Acute Exacerbation and/or Progression of Chronic Illness:
Patient likely has acute alcohol withdrawal
*Pulse Oximetry
Patient hypoxic: no
*EKG
Interpreted by ED Provider?: Yes
Interpretation: abnormal
Comparison EKG: changes noted
Rate: normal
Rhythm: sinus
[place]: left axis deviation
Interval: normal interval
QRS Pattern: normal QRS
Ischemia: non-specific ST changes
*Railcar Switcher Interpretation
Rate: tachycardiac
Interpretation: abnormal
Rhythm: sinus
*Critical Care Note
Total Time (30-74mins, 75-104mins- exclusive of procedures): Not Applicable
Data Reviewed
Review of Other/Old Records Reveals: Discharge Summary (Hospitalist discharge reviewed from 12/25/2023 when patient was admitted for hypoglycemia and chronic alcohol abuse)
ED Attending Note
-
Portions of this chart may have been created with voice recognition software.� Occasional wrong word or��sound alike� substitutions may have occurred due to the inherent limitations of voice recognition software.
Discharge Plan
Departure
Patient Disposition: Admit
Date of Disposition: 02/23/24
Time of Disposition: 23:18
Admit to: Telemetry
Presentation/result/management discussed w/ accepting MD/DO: Hospitalist
Patient with high blood pressure during this ER visit?: Yes
Condition: Fair
Covid-19: Not Applicable
Discharge Problem:
Alcohol withdrawal
Interventions
Interventions:
*General Assessment Last Done: 02/23/24 20:23
*Neglect/Abuse Screening Last Done: 02/23/24 20:23
ED- Fall Risk Assessment Last Done: 02/23/24 20:26
ED- Pulmonary Assessment Last Done: 02/23/24 20:49
ED- Neurological Assessment Last Done: 02/23/24 20:26
ED- Cardiac Assessment Last Done: 02/23/24 20:26
ED Swallowing Screen Last Done: 02/23/24 20:26
[2024-02-23] MEDS: ATIVAN 1 MG IV (21:24)
[2024-02-23] MEDS: MULTIVITAMIN 1011 MG IV (21:37)
[2024-02-23] MEDS: MULTIVITAMIN 1011 ML IV (21:37)
[2024-02-23 21:57] LABS: Alcohol 151 mg/dl
--- NOTE | 2024-02-23 23:44 | HPS.HSE ---
Family Physician
-
Family Physician: NOT KNOW UNKNOWN - PT DOES
Chief Complaint
-
Alcohol Problem
History of Present Illness
Patient is a 68 y/o male past medical history of diabetes mellitus, a-fib, PTSD/Bipolar disorder, and alcohol use disorder who presents with an alcohol problem. At this time patient is sedated following dose of Ativan given in the emergency
department, and he is unable to to provide any additional history. History is obtained from review with emergency department provider. Patient's sister called him earlier today and noted that he sounded disoriented on the phone. She calledd 911
for a wellness check, and EMS brought him to the emergency department for evaluation. Patient noted that he has been on a drinking binge, but states his last drink was about 24 hours ago. He complained of feeling tremulous in the emergency
department.
Medical History
Past Medical History
Past Medical History: Reports Other
Additional Past Medical History:
Diabetes Mellitus, Type II
Essential Hypertension
Paroxysmal Atrial Fibrillation
Bipolar Disorder / PTSD
Alcohol Use Disorder
Benzodiazepine Withdrawal Seizure
Lumbar Disc Disease
Past Surgical History: Reports Other
Additional Past Surgical History:
Subtotal Gastrectomy with Billroth-II
Inguinal Hernia Repair
Incisional Ventral Hernia Repair w/Mesh
Social History
Tobacco: Non-smoker
Alcohol: Binge drinker
Living: Alone ([facility])
Family History
Family History: Not pertinent
Allergies / Home Medications
Allergies reflects when Allergies were last updated in [facility].
Home Medications with original date entered in [facility]
Allergy/Medication List:
Allergies
Allergy/AdvReac Type Severity Reaction Status Date / Time
iodine [Iodine] Allergy flushing Verified 08/25/23 14:14
Penicillins Allergy Hives, Verified 08/25/23 14:14
flushing
venom-honey bee Allergy Anaphylaxis Verified 08/25/23 14:14
[bee venom (honey bee)]
Home Medications
furosemide 20 mg tablet 20 mg PO MOWEFR Fluid retention/Swelling 03/26/23
aspirin 81 mg chewable tablet 81 mg PO DAILY Blood clot prevention/tx 03/27/23
buspirone 10 mg tablet 10 mg PO TID Mental Health/Anxiety 03/27/23
divalproex 500 mg tablet,extended release 24 hr 1,000 mg PO HS Mental Health/Anxiety 03/27/23
gabapentin 300 mg capsule 300 mg PO TID ALCOHOL CONTROL 03/27/23
mirtazapine 45 mg tablet 45 mg PO HS Mental Health/Anxiety 03/27/23
quetiapine 200 mg tablet 200 mg PO DAILY Mental Health/Anxiety 03/27/23
quetiapine 400 mg tablet,extended release 24 hr 800 mg PO HS Mental Health/Anxiety 03/27/23
thiamine HCl (vitamin B1) 100 mg tablet (Vitamin B-1) 100 mg PO DAILY Supplement 03/27/23
metoprolol succinate 25 mg tablet,extended release 24 hr 25 mg PO DAILY 30 days #30 tabs 03/29/23
cholecalciferol (vitamin D3) 50 mcg (2,000 unit) tablet (Vitamin D3) 50 mcg PO WEEKLY Supplement 12/23/23
rosuvastatin 40 mg tablet 40 mg PO DAILY High Cholesterol 12/23/23
albuterol sulfate 90 mcg/actuation aerosol inhaler 2 puff inhalation QID PRN sob 12/24/23
fluticasone propionate 115 mcg-salmeterol 21 mcg/actuation HFA inhaler (Advair HFA) 2 puff inhalation BID 12/24/23
folic acid 800 mcg tablet 0.8 mg PO DAILY 12/24/23
lidocaine 4 % topical patch (Lidocaine Pain Relief) 1 patch topical BID PRN pain 12/24/23
sennosides 8.6 mg tablet (senna) 8.6 mg PO HS 12/24/23
tamsulosin 0.4 mg capsule (Flomax) 0.4 mg PO DAILY 12/24/23
insulin aspart U-100 100 unit/mL subcutaneous solution (Novolog U-100 Insulin aspart) 6 unit (0.06 mL) SC TID #0 mL 12/25/23
insulin glargine-yfgn 100 unit/mL (3 mL) subcutaneous pen 20 unit (0.2 mL) SC HS #0 mL 12/25/23
metformin 1,000 mg tablet 1,000 mg PO BID #60 tabs 12/25/23
sitagliptin phosphate 100 mg tablet (Januvia) 100 mg PO DAILY #30 tabs 12/25/23
Review of Systems
-
Unable to obtain full review of systems at this time due to: Patient Non-verbal
Physical Exam
Vital Signs
Vital Signs
Temp Pulse Resp BP Pulse Ox
98.6 F 83 16 121/70 97
02/23/24 20:14 02/23/24 23:30 02/23/24 23:30 02/23/24 21:00 02/23/24 23:30
Physical Exam
General: Well Developed and Well Nourished
HEENT: Anicteric and Moist mucous membranes
Respiratory: Clear and Non Labored Respirations
Cardiac: S1/S2 and Regular Rhythm
GI: Soft, Non Tender and Non Distended
Musculoskeletal: No Clubbing, No Cyanosis and No Edema
Skin: Warm and Dry
Neuro: Sedated
Laboratory Results
-
02/23/24 20:23
02/23/24 20:23
Laboratory Results
Total Bilirubin 0.4 mg/dl (0.2-1.3) 02/23/24 20:23
AST 27 U/L (17-59) 02/23/24 20:23
ALT 16 U/L (0-50) 02/23/24 20:23
Alkaline Phosphatase 58 U/L (38-126) 02/23/24 20:23
Data Reviewed
-
Lab Data: Labs Reviewed by me
Impression/Plan
-
Alcohol Use Disorder with Alcohol Withdrawal
-Patient given Ativan in ED
-Continue alcohol withdrawal protocol
-Continue thiamine and folic acid
-Keep NPO until mentation improves
Diabetes Mellitus, Type II
-Hold insulin as patient is high risk for hypoglycemia
-Monitor sugars and continue coverage insulin
Essential Hypertension
-Hold meds
-Monitor BP
Paroxysmal Atrial Fibrillation
-Patient is not on anticoagulation secondary to history of medication non-compliance
-Monitor on Telemetry
Bipolar Disorder / PTSD
-Resume meds when mentation improves
DVT proph: SCDs
Code Status: Full Code
--- NOTE | 2024-02-23 23:46 | W.PN.UPDATE ---
Update Note
Progress Note Update
I could not get any information from the patient was given IV Ativa 1 mg at ER and hard to awake
Information gathered by chart review and speaking with the ER staff.
This note serves as an addendum to the H&P by mechanical design engineer products KARTHIKEYAN Elizabeth DONALDSON on 02/23/24
HPI
68M HX chr ETOH use disorder, IDDM BiB EMS after sister spoke with hime and thought disorented AMS
Reports recently on a drinking binge at least 24 hours ago.
Noted small abrasion on his left middle finger and is not sure if he fell.
He admits that he feels shaky and is going through alcohol withdrawal.
BG 196
ROS:
sedated
PMHx
Prx AF
Hypercholesterolemia
Hypothyroidism
IDDM
Bipolar unspecified
ETOH use disorder
Frequent admissions
Medication non compliance
PSHx
Non
SHX;
Tobacco: Non-smoker
Alcohol: Occasional
Drug: None
Res of [facility] - independent living ?
FHX
Not pertinent
Allergies / Home Medications
Allergies
Allergy/AdvReac Type Severity Reaction Status Date / Time
iodine [Iodine] Allergy flushing Verified 08/25/23 14:14
Penicillins Allergy Hives, Verified 08/25/23 14:14
flushing
venom-honey bee Allergy Anaphylaxis Verified 08/25/23 14:14
[bee venom (honey bee)]
Home Medications
furosemide 20 mg tablet 20 mg PO MOWEFR Fluid retention/Swelling 03/26/23
aspirin 81 mg chewable tablet 81 mg PO DAILY Blood clot prevention/tx 03/27/23
buspirone 10 mg tablet 10 mg PO TID Mental Health/Anxiety 03/27/23
divalproex 500 mg tablet,extended release 24 hr 1,000 mg PO HS Mental Health/Anxiety 03/27/23
gabapentin 300 mg capsule 300 mg PO TID ALCOHOL CONTROL 03/27/23
mirtazapine 45 mg tablet 45 mg PO HS Mental Health/Anxiety 03/27/23
quetiapine 200 mg tablet 200 mg PO DAILY Mental Health/Anxiety 03/27/23
quetiapine 400 mg tablet,extended release 24 hr 800 mg PO HS Mental Health/Anxiety 03/27/23
thiamine HCl (vitamin B1) 100 mg tablet (Vitamin B-1) 100 mg PO DAILY Supplement 03/27/23
metoprolol succinate 25 mg tablet,extended release 24 hr 25 mg PO DAILY 30 days #30 tabs 03/29/23
cholecalciferol (vitamin D3) 50 mcg (2,000 unit) tablet (Vitamin D3) 50 mcg PO WEEKLY Supplement 12/23/23
rosuvastatin 40 mg tablet 40 mg PO DAILY High Cholesterol 12/23/23
albuterol sulfate 90 mcg/actuation aerosol inhaler 2 puff inhalation QID PRN sob 12/24/23
fluticasone propionate 115 mcg-salmeterol 21 mcg/actuation HFA inhaler (Advair HFA) 2 puff inhalation BID 12/24/23
folic acid 800 mcg tablet 0.8 mg PO DAILY 12/24/23
lidocaine 4 % topical patch (Lidocaine Pain Relief) 1 patch topical BID PRN pain 12/24/23
sennosides 8.6 mg tablet (senna) 8.6 mg PO HS 12/24/23
tamsulosin 0.4 mg capsule (Flomax) 0.4 mg PO DAILY 12/24/23
insulin aspart U-100 100 unit/mL subcutaneous solution (Novolog U-100 Insulin aspart) 6 unit (0.06 mL) SC TID #0 mL 12/25/23
insulin glargine-yfgn 100 unit/mL (3 mL) subcutaneous pen 20 unit (0.2 mL) SC HS #0 mL 12/25/23
metformin 1,000 mg tablet 1,000 mg PO BID #60 tabs 12/25/23
sitagliptin phosphate 100 mg tablet (Januvia) 100 mg PO DAILY #30 tabs 12/25/23
Reviewed VS:
Vital Signs
Temp Pulse Resp BP Pulse Ox
98.6 F 83 16 121/70 97
02/23/24 20:14 02/23/24 23:30 02/23/24 23:30 02/23/24 21:00 02/23/24 23:30
PE
Gen: sleeping and snoring hard s/p Ativan and very hard to wake him up
HEENT: symmetrica face
Neck: supple , no JVD
Lungs: CTA
Cor: RRR S 1S2
Abdomen: soft , NG, nl BS
HOUSING INSPECTORS: sedated
MS: no edema
Psych: unable to examine due to MS
Data
WCC 6.8
Stable Hgb 11.7 nl MCV
Plt 244
Na 134
K 5
CO2 21
BUN 8
nl Cr
ETOH 150
NEG HCT per ER attd
Last hospitalist admission: 12/23/23 - 12/25/23
DXs: Hypoglycemia, Alcohol use disorder
ASSESSMENT & PLAN
Pending Rx reconciliation
AMS: Obtunded s/p IV Ativan at ER and sedated
Hypoactive lethargic TME due ETOH plus Ativan at ER for tremors and presumed acute ETOH WDS
Non focal neuro deficit on gross exam
ETOH 150 : Recent Binge ETOH abuse
Chr ETOH use disorder
Res [facility] - Independent living ??
- CIWA protocol
- NPO and IVF due to aspiration risks
- Speech to scree for nutrition when he is more alert and cooporative in AM
- supportive care
- PT/OT
IDDM
HX symptomatic hypoglycemia due to took insulin and missed measls
- add ISS low inclusive of hypoglycemic protocol
- held INDUCTION FURNACE OPERATOR Insulin till stable
HX Prx AF in March 2023
[id number] score 3 for age, hypertension, diabetes.
Of note; He was evaluated by [facility] card in March 2023 as below
- Hi risk anticoagulation candidate due to fall risk in setting of alcohol use disorder
- HX Medication noncompliance
- cont INDUCTION FURNACE OPERATOR ASA and Metoprolol succinate
Essential hypertension
- on Frusemide and Metoprolol XL
GERD
Anxiety/depression/bipolar
- check Valproate level
- cont. Valproate and INDUCTION FURNACE OPERATOR Psych meds except Seroquel due to AMS upon admission
Lumbar disc disease
Hypercholesterolemia on Rosuvastatin
DVT Px: SCD
Full code
IP TLM
[2024-02-24] VITALS (9 sets, daily range): BP systolic 109–171; BP diastolic 62–85; PULSE 90–118; O2SAT 98; BMI 29.1
--- NOTE | 2024-02-24 01:00 | PTCARENOTE ---
Received pt from ED, pt very drowsy- unable to answer admit questions. VSS, no complaints of pain.
[2024-02-24] MEDS: NSS 1000 IV ×2 (01:53→17:45)
[2024-02-24 06:26] LABS: Urine Albumin Negative (Neg - Trace); Urine Bilirubin 1+ (Negative); Urine Character Clear (Clear); Urine Color Yellow; Urine Glucose 1+ (Negative); Urine Ketone 2+ (Negative); Urine Leukocyte Negative (Negative); Urine Nitrite Negative (Negative); Urine Occult Blood Negative (Negative); Urine Specific Gravity 1.025 (<1.030); Urine Urobilinogen Negative (Neg - 1+)
[2024-02-24 07:00] LABS: INR 1.08; PT 13.8 Sec (11.4-14.6)
[2024-02-24 07:10] LABS: Magnesium 1.8 mg/dl (1.6-2.3)
[2024-02-24] MEDS: THIAMINE INJECTION 200 MG IV ×2 (07:59→20:09)
--- NOTE | 2024-02-24 08:54 | W.PN.HOSP.TC ---
Today's Communication/Plan
-
see outlined plan
Assessment / Plan
Assessment / Plan
Assessment:
Alcohol use disorder, severe
Acute alcohol dependence syndrome
- reports heavy drinking 1 day/week but sister Shanta believes this is inaccurate
- continue MSAS protocol
- start phenobarbital protocol
- thiamine/MV/Folic acid
- speech therapy, regular diet
Acute hypoxic respiratory insufficiency on 2L
L rib pain
- patient unsure if he fell
- check CXR/Rib series
- wean O2 as able
Type 2 DM
- continue SSI
- A1c: pending
- home meds pending
Essential HTN
- monitor BP
- home meds pending
Parox A. Flutter
Parox A. Fib
- hx of Ablation
- not on AC due to noncompliance, fall risk in setting of ETOH
- home meds pending
HLD
Hx of COPD
HX of Tobacco Abuse
Bipolar Disorder/PTSD
Suicide attempt; drank bleach (~ 10 years)
- home meds pending
DVT ppx: SCDs
Code: Full
Anticipated Discharge: > 48 hours
Subjective/Interval History
-
Date of Service: February 24, 2024
more awake and alert today
reports drinking 'excessive' amounts of beer, cannot recall how many he dranks on Sunday
Objective Data
-
Labs:
Laboratory Results
02/23/24 02/24/24
20:23 06:34
PT 13.8
INR 1.08
APTT 27.0
Sodium 134 L
Potassium 5.0
Chloride 102
Carbon Dioxide 21 L
BUN 8 L
Creatinine 0.7
Glucose 196 H
Calcium 8.7
Total Bilirubin 0.4
AST 27
ALT 16
Alkaline Phosphatase 58
Vital Signs:
Vital Signs
Temp Pulse Resp BP Pulse Ox
98.2 F 79 17 171/78 99
02/24/24 07:22 02/24/24 07:22 02/24/24 07:22 02/24/24 07:22 02/24/24 07:22
I&O
02/23/24 02/24/24 02/25/24
06:59 06:59 06:59
Output Total 1650 / 1650
Balance -1650 / -1650
Physical Exam
-
General: No Apparent Distress
HEENT: Normocephalic and Atraumatic
Respiratory: Negative Wheezes or Rales
Cardiac: Regular Rhythm and S1/S2
GI: Soft
Genito-urinary: No Costovertebral Tender
Neuro: AO x 3
Hematologic / Lymphatic: No Lymphadenopathy
Psych: Calm
Data Reviewed
-
Total Time Spent with Patient (in minutes): 43
Labs: Labs Reviewed by me
[2024-02-24 09:20] LABS: Glucose - Point of Care 114 mg/dl (70-99)
[2024-02-24] MEDS: NOVOLOG FLEXPEN-MODERATE RESISTANCE SC (09:20)
[2024-02-24] MEDS: FOLVITE 1 MG PO (10:20)
[2024-02-24 10:36] LABS: Glycohemoglobin (HgbA1c) 7.5 % (4.0-5.6)
[2024-02-24 11:51] LABS: Glucose - Point of Care 175 mg/dl (70-99)
--- NOTE | 2024-02-24 11:51 | CM ---
Addendum entered by Yennifer Alejandro RN 02/24/24 15:47:
Message from FRENCH Galloway; he declined inpatient, he accepted resources for outpatient at [place] and was given a list of individual therapists.
Addendum entered by Yennifer Alejandro RN 02/24/24 15:45:
Contact for [facility]- Stefanie Franco, LATANYA, Mngr Intake cell [phone].
Original Note:
Patient with Hx Bipolar Disorder/PTSD, Dx Alcohol use disorder, Acute alcohol dependence syndrome, Acute hypoxic respiratory insufficiency. O2 3L. Receiving IV Phenobarb. PT & OT recommend skilled rehab.
Met with patient who resides alone at [facility], multi story building with elevator.
The patient has been independent in ADLs and ambulation using his RW.
He volunteers that his balance is not good and he fell about 2 months ago.
His only DME is the RW.
Patient states he is current with [facility].
No prior SNF
[facility]
Pharmacy - [facility]
Patient has 2 sisters Shanta (celll [phone]) and Aletha (cell [phone]) who reside together in [place]. His and one son are both .
CM Consult: Substance Abuse
Patient states he did an inpatient Etoh program with [facility] in [place] about a month ago, followed by [facility] outpatient program. He states he began drinking when he returned home and sometimes 'binge drinks'. He is receptive
to talking to FRENCH.
Referral to FRENCH Galloway who can see the patient today.
Plan follow up with FRENCH.
Plan follow patient's mobility.
Plan possible SNF vs Etoh program.
[2024-02-24] MEDS: TOPROL XL 25 MG PO (11:58)
[2024-02-24] MEDS: NOVOLOG FLEXPEN-MODERATE RESISTANCE 1 UNITS SC (13:00)
[2024-02-24] MEDS: BUSPAR 10 MG PO ×2 (15:38→22:08)
[2024-02-24] MEDS: LUMINAL 97.2000000000000028 MG PO ×2 (15:38→22:09)
[2024-02-24 16:39] LABS: Glucose - Point of Care 214 mg/dl (70-99)
--- NOTE | 2024-02-24 16:51 | PTCARENOTE ---
Received patient this am AAOx3. Pt drowsy in am , then became more alert. MSAS remained between 0-2 during shift. IVF infusing without difficulty. Pt tolerated diet well. Pt started on Phenobarbital PO today as ordered. Pt incontinent of large
amount of urine this am. Bladder scanned for 79 ml after patient saturated brief. Pt with decreased urine out put this afternoon. Bladder Scanned for >that 450. Pt straight cathed for 600 clear yellow urine. Pt was then incontinent of more
urine. Dr. Govea made aware. Pt off unit to Xray. Pt offered no complaints. Cont to assess patient status.
[2024-02-24] MEDS: GLUCOPHAGE 1000 MG PO (17:44)
[2024-02-24] MEDS: NOVOLOG FLEXPEN-MODERATE RESISTANCE 3 UNITS SC (17:45)
[2024-02-24] MEDS: NOVOLOG FLEXPEN 6 UNITS SC (17:46)
[2024-02-24] MEDS: ADVAIR HFA 115/21 MCG INHALER 2 PUFF INH (19:35)
[2024-02-24 21:06] LABS: Glucose - Point of Care 151 mg/dl (70-99)
[2024-02-24] MEDS: LANTUS 0.200000000000000011 UNITS SC (22:08)
[2024-02-24] MEDS: DEPAKOTE ER (24 HR RELEASE) 1000 MG PO (22:08)
[2024-02-25 03:26] VITALS: BP 141/72
--- NOTE | 2024-02-25 05:01 | PTCARENOTE ---
Pt aaox3 able to make his needs known,pleasant & cooperative. Denies pain. Pt MSAS-2 for tremors. Pt oob with 2 person assist voided 2100ml total during shift. Pt bladder scan from 4.30am showed 510ml after voiding 1100ml.Pt refusing for a straight
cath at this time & will try to void in the urinal later.Pt prefers to sleep at this time.MIRANDA Howard made aware of pt refusal for straight cath & bladder scan protocol. Plan of care continued with pt.Call paige & bed alarm in place.
[2024-02-25 07:07] LABS: Glucose - Point of Care 147 mg/dl (70-99)
[2024-02-25 07:18] LABS: Hematocrit 28.5 % (39.0-52.0); Hemoglobin 10.2 g/dL (13.0-18.0); Mean Corp Hgb Conc. 35.8 g/dL (33.0-37.0); Mean Corpuscular Hgb 33.3 pg (27.0-31.0); Mean Corpuscular Volume 93.1 fL (80.0-94.0); Mean Platelet Volume 9.4 fL (7.4-10.4); Platelet Count 193 10^3/uL (130-400); Red Blood Cell Count 3.06 10^6/uL (4.70-6.10); Red Cell Dist. Width 14.7 % (11.5-14.5); White Blood Cell Count 6.7 10^3/uL (4.8-10.8)
[2024-02-25 07:45] LABS: ALT (SGPT) 13 U/L (0-50); AST (SGOT) 18 U/L (17-59); Albumin 2.8 g/dl (3.5-5.0); Alkaline Phosphatase 71 U/L (38-126); Blood Urea Nitrogen 11 mg/dl (9-20); Calcium 8.3 mg/dl (8.4-10.2); Carbon Dioxide 25 mmol/L (22-30); Chloride 105 mmol/L (98-107); Estimated Creatinine Clearance > 125 ml/min; Glucose 132 mg/dl (70-99); Potassium 3.9 mmol/L (3.5-5.1); Sodium 133 mmol/L (135-145); Total Bilirubin 0.4 mg/dl (0.2-1.3); Total Protein 5.3 g/dl (6.3-8.2); eGFR > 60.00
[2024-02-25] MEDS: ADVAIR HFA 115/21 MCG INHALER 2 PUFF INH ×2 (07:54→19:22)
[2024-02-25 07:55] VITALS: BP 125/73
[2024-02-25] MEDS: NOVOLOG FLEXPEN-MODERATE RESISTANCE SC (08:04)
[2024-02-25] MEDS: BUSPAR 10 MG PO ×3 (08:05→22:15)
[2024-02-25] MEDS: LUMINAL 97.2000000000000028 MG PO ×2 (08:05→16:57)
[2024-02-25] MEDS: GLUCOPHAGE 1000 MG PO ×2 (08:05→16:57)
[2024-02-25] MEDS: FLOMAX 0.400000000000000022 MG PO (08:05)
[2024-02-25] MEDS: TOPROL XL 25 MG PO (08:06)
[2024-02-25] MEDS: THIAMINE INJECTION 200 MG IV ×2 (08:06→20:42)
[2024-02-25] MEDS: FOLVITE 1 MG PO (08:06)
[2024-02-25] MEDS: CRESTOR 40 MG PO (08:06)
[2024-02-25] MEDS: LOW STRENGTH ASPIRIN 81 MG PO (08:06)
[2024-02-25] MEDS: NOVOLOG FLEXPEN 6 UNITS SC ×3 (08:07→16:58)
--- NOTE | 2024-02-25 09:41 | CM ---
Addendum entered by Rosana Dickey RN 02/25/24 11:34:
Ava [phone] from [facility] called back . Pts inspection is to be rescheduled and he is not evicted. PT notified.
Ava said he has SN PT OT all set up form him already with [facility] .
If he needs transportation home [facility] will cover cost /provide.
PLAn Home with [facility] VN fax [phone]
Original Note:
RN TT that patient said he may be evicted from [facility] . LM with Angella PELAEZ at [facility] [phone].
LM with [facility] [phone] concerning what benefits he has with them.
Spoke with [facility] Segundo saw patient ans pt agreed to out pt ETOH treatment at [facility].
Awaiting call backs.
PLAN Home with [facility] and [facility] recourses
--- NOTE | 2024-02-25 10:59 | W.PN.HOSP.TC ---
Today's Communication/Plan
-
continue truncated phenobarb protocol until Sun
CM c/s for ETOH resources to quit
PT/OT evals ongoing - current recommendation SNF, but more alert now
Assessment / Plan
Assessment / Plan
Assessment:
Alcohol use disorder, severe
Acute alcohol dependence syndrome
- reports heavy drinking 1 day/week but sister Shanta believes this is inaccurate
- continue MSAS protocol
- continue phenobarbital protocol, given improvement, will continue Phenobarb 97.2mg until 4pm on 02/24, then 64.8mg until 10pm dose on 02/25, then 32.4mg dose until 4pm on 02/26 then dc home Sunday.
- thiamine/MV/Folic acid
- speech therapy, regular diet
Acute hypoxic respiratory insufficiency on 2L
L rib pain
- patient unsure if he fell
- no trauma, no fractures
- CXR clear
- off O2
Type 2 DM
- continue Basal/bolus
- continue SSI
- continue Metformin
- continue Alogliptin
- A1c: 7.5%
Essential HTN
- monitor BP
- continue Toprol XL
Parox A. Flutter
Parox A. Fib
- hx of Ablation
- not on AC due to noncompliance, fall risk in setting of ETOH
- continue Toprol XL
HLD - statin
Hx of COPD
HX of Tobacco Abuse
Bipolar Disorder/PTSD
Suicide attempt; drank bleach (~ 10 years)
- continue Buspar and Depakote
- Resume Seroquel at discharge (held due to interaction with phenobarb)
DVT ppx: SCDs
Code: Full
Anticipated Discharge: > 48 hours
Subjective/Interval History
-
Date of Service: February 25, 2024
MSAS score 2 this AM
has some tremors he reports but otherwise feels ok
tolerating phenobarb
Objective Data
-
Labs:
Laboratory Results
02/25/24
07:10
WBC 6.7
Hgb 10.2 L
Hct 28.5 L
Plt Count 193 D
Sodium 133 L
Potassium 3.9
Chloride 105
Carbon Dioxide 25
BUN 11
Creatinine 0.6 L
Glucose 132 H
Calcium 8.3 L
Total Bilirubin 0.4
AST 18
ALT 13
Alkaline Phosphatase 71
Vital Signs:
Vital Signs
Temp Pulse Resp BP Pulse Ox
98.7 F 70 18 125/78 98
02/25/24 07:55 02/25/24 08:06 02/25/24 07:55 02/25/24 08:06 02/25/24 07:55
I&O
02/24/24 02/25/24 02/26/24
06:59 06:59 06:59
Intake Total 1800 / 1800
Output Total 1650 / 1650 2700 / 2700
Balance -1650 / -1650 -900 / -900
Physical Exam
-
General: No Apparent Distress
HEENT: Normocephalic and Atraumatic
Respiratory: Negative Wheezes
Cardiac: Regular Rhythm and S1/S2
GI: Soft
Genito-urinary: No Costovertebral Tender
Neuro: AO x 3 and Tremors
Hematologic / Lymphatic: No Lymphadenopathy
Psych: Calm
Data Reviewed
-
Total Time Spent with Patient (in minutes): 42
Labs: Labs Reviewed by me
[2024-02-25 11:49] LABS: Glucose - Point of Care 210 mg/dl (70-99)
[2024-02-25 11:55] VITALS: BP 137/72
[2024-02-25] MEDS: NOVOLOG FLEXPEN-MODERATE RESISTANCE 3 UNITS SC (12:05)
[2024-02-25 15:55] VITALS: BP 111/61
[2024-02-25 16:39] LABS: Glucose - Point of Care 163 mg/dl (70-99)
[2024-02-25] MEDS: NOVOLOG FLEXPEN-MODERATE RESISTANCE 1 UNITS SC (16:58)
[2024-02-25] MEDS: TYLENOL 650 MG PO (17:46)
[2024-02-25 19:55] VITALS: BP 131/77
[2024-02-25 21:15] LABS: Glucose - Point of Care 176 mg/dl (70-99)
[2024-02-25] MEDS: LANTUS 0.100000000000000006 UNITS SC (22:13)
[2024-02-25] MEDS: LUMINAL 64.7999999999999972 MG PO (22:14)
[2024-02-25] MEDS: DEPAKOTE ER (24 HR RELEASE) 1000 MG PO (22:15)
[2024-02-25 23:50] VITALS: BP 127/68
[2024-02-26] VITALS (8 sets, daily range): BP systolic 117–150; BP diastolic 65–80; PULSE 72–83; O2SAT 96–97; BMI 28.7
[2024-02-26 05:40] LABS: Hematocrit 32.2 % (39.0-52.0); Mean Corp Hgb Conc. 34.2 g/dL (33.0-37.0); Mean Corpuscular Hgb 33.1 pg (27.0-31.0); Mean Platelet Volume 9.8 fL (7.4-10.4); Platelet Count 187 10^3/uL (130-400); Red Blood Cell Count 3.32 10^6/uL (4.70-6.10); Red Cell Dist. Width 14.8 % (11.5-14.5); White Blood Cell Count 7.6 10^3/uL (4.8-10.8)
[2024-02-26 06:14] LABS: ALT (SGPT) 13 U/L (0-50); AST (SGOT) 20 U/L (17-59); Albumin 3.2 g/dl (3.5-5.0); Alkaline Phosphatase 70 U/L (38-126); Blood Urea Nitrogen 11 mg/dl (9-20); Calcium 9.1 mg/dl (8.4-10.2); Carbon Dioxide 25 mmol/L (22-30); Chloride 102 mmol/L (98-107); Estimated Creatinine Clearance 109 ml/min; Glucose 131 mg/dl (70-99); Potassium 4.1 mmol/L (3.5-5.1); Sodium 135 mmol/L (135-145); Total Bilirubin 0.5 mg/dl (0.2-1.3); Total Protein 5.9 g/dl (6.3-8.2); eGFR > 60.00
--- NOTE | 2024-02-26 07:32 | W.PN.HOSP.TC ---
Addendum entered and electronically signed by Zofia Sauceda MD 02/26/24 19:05:
Physical Exam
General: No Apparent Distress
HEENT: Normocephalic and Atraumatic
Respiratory: Negative Wheezes
Cardiac: Regular Rhythm and S1/S2
GI: Soft
Genito-urinary: No Costovertebral Tender
Neuro: AO x 3 no significant tremors noted
Hematologic / Lymphatic: No Lymphadenopathy
Psych: Calm
Original Note:
Today's Communication/Plan
-
Cont MSAS protocol
discontinue phenobarbital taper, monitor off
Glycemic control
Discharge in AM if no significant withdrawal symptoms
Assessment / Plan
Assessment / Plan
Assessment:
Alcohol use disorder, severe
Acute alcohol dependence syndrome
- reports heavy drinking 1 day/week but sister Shanta believes this is inaccurate
- continue MSAS protocol
- discontinue phenobarbital taper, monitor off
- thiamine/MV/Folic acid
- speech therapy, regular diet
Acute hypoxic respiratory insufficiency on 2L
L rib pain
- patient unsure if he fell
- no trauma, no fractures
- CXR clear
- off O2
Type 2 DM
- continue Basal/bolus
- continue SSI
- continue Metformin
- continue Alogliptin
- A1c: 7.5%
Essential HTN
- monitor BP
- continue Toprol XL
Parox A. Flutter
Parox A. Fib
- hx of Ablation
- not on AC due to noncompliance, fall risk in setting of ETOH
- continue Toprol XL
Mild Anemia
H&H stable
iron studies appreciated anemia of chronic disease, Iron wnl
B12 wnl
HLD - statin
Hx of COPD
HX of Tobacco Abuse
Bipolar Disorder/PTSD
Suicide attempt; drank bleach (~ 10 years)
- continue Buspar and Depakote
- Resume Seroquel at discharge (held due to interaction with phenobarb)
DVT ppx: SCDs
Code: Full
PT/OT appreciated home health
I spent a total of 55 minutes with the patient or on the floor. More than 50% of this time involved counseling and coordination of care.
Anticipated Discharge: Within 24 hours
Subjective/Interval History
-
Date of Service: February 26, 2024
No acute distress ambulating without issues. Reports overall feeling well. No significant withdrawal symptoms noted at this time.
Objective Data
-
Labs:
Laboratory Results
02/26/24
04:57
WBC 7.6
Hgb 11.0 L
Hct 32.2 L
Plt Count 187
Sodium 135
Potassium 4.1
Chloride 102
Carbon Dioxide 25
BUN 11
Creatinine 0.7
Glucose 131 H
Calcium 9.1
Total Bilirubin 0.5
AST 20
ALT 13
Alkaline Phosphatase 70
Vital Signs:
Vital Signs
Temp Pulse Resp BP Pulse Ox
98.1 F 65 18 136/71 98
02/26/24 03:07 02/26/24 03:07 02/26/24 03:07 02/26/24 03:07 02/26/24 03:07
I&O
02/25/24 02/26/24 02/27/24
06:59 06:59 06:59
Intake Total 1800 / 1800 1200 / 1200
Output Total 2700 / 2700 1000 / 1000
Balance -900 / -900 200 / 200
[2024-02-26] MEDS: ADVAIR HFA 115/21 MCG INHALER 2 PUFF INH ×2 (07:58→19:09)
[2024-02-26 08:17] LABS: Glucose - Point of Care 187 mg/dl (70-99)
[2024-02-26] MEDS: NOVOLOG FLEXPEN SC (08:34)
[2024-02-26] MEDS: LUMINAL 64.7999999999999972 MG PO (08:36)
[2024-02-26] MEDS: CRESTOR 40 MG PO (08:45)
[2024-02-26] MEDS: FLOMAX 0.400000000000000022 MG PO (08:45)
[2024-02-26] MEDS: THIAMINE INJECTION 200 MG IV ×2 (08:45→19:39)
[2024-02-26] MEDS: LUMINAL 32.3999999999999986 MG PO (08:45)
[2024-02-26] MEDS: LOW STRENGTH ASPIRIN 81 MG PO (08:45)
[2024-02-26] MEDS: TOPROL XL 25 MG PO (08:46)
[2024-02-26] MEDS: FOLVITE 1 MG PO (08:46)
[2024-02-26] MEDS: BUSPAR 10 MG PO ×3 (08:46→21:43)
[2024-02-26] MEDS: GLUCOPHAGE 1000 MG PO ×2 (08:46→16:28)
[2024-02-26] MEDS: NOVOLOG FLEXPEN-MODERATE RESISTANCE 1 UNITS SC ×2 (08:48→16:27)
[2024-02-26 11:51] LABS: Glucose - Point of Care 202 mg/dl (70-99)
[2024-02-26] MEDS: NOVOLOG FLEXPEN 6 UNITS SC ×2 (11:58→16:27)
[2024-02-26] MEDS: NOVOLOG FLEXPEN-MODERATE RESISTANCE 3 UNITS SC (11:58)
--- NOTE | 2024-02-26 15:39 | CM ---
Spoke with Ava [phone] from [facility] reviewed PT results . She requested PT OT form today be faxed to [phone] .
PT OT from today much improved. Suggested home with VN .
Ava said he has SN PT OT all set up form him already with [facility] .
[facility] transportation to home will be covered from [facility].
Medical nec form needed.
PLAN: Home with [facility] VN fax [phone]
[2024-02-26 16:15] LABS: Glucose - Point of Care 169 mg/dl (70-99)
[2024-02-26 16:21] LABS: Iron 111 ug/dl (49-181)
[2024-02-26 16:31] LABS: Percent Saturation 43 % (20-50); Total Iron Binding Capacity 255 ug/dl (261-462)
[2024-02-26 17:26] LABS: Vitamin B12 610 pg/ml (239-931)
[2024-02-26 21:27] LABS: Glucose - Point of Care 142 mg/dl (70-99)
[2024-02-26] MEDS: LANTUS 0.200000000000000011 UNITS SC (21:43)
[2024-02-26] MEDS: MELATONIN 5 MG PO (21:43)
[2024-02-26] MEDS: DEPAKOTE ER (24 HR RELEASE) 1000 MG PO (21:43)
[2024-02-27 03:00] VITALS: BP 123/71
[2024-02-27 06:00] VITALS: BMI 28.5
[2024-02-27] MEDS: ADVAIR HFA 115/21 MCG INHALER 2 PUFF INH (07:24)
--- NOTE | 2024-02-27 07:26 | W.PN.HOSP.TC ---
Today's Communication/Plan
-
discharge
Assessment / Plan
Assessment / Plan
Physical Exam
General: No Apparent Distress
HEENT: Normocephalic and Atraumatic
Respiratory: Negative Wheezes
Cardiac: Regular Rhythm and S1/S2
GI: Soft
Genito-urinary: No Costovertebral Tender
Neuro: AO x 3 no significant tremors noted
Hematologic / Lymphatic: No Lymphadenopathy
Psych: Calm
Assessment:
Alcohol use disorder, severe
Acute alcohol dependence syndrome
- reports heavy drinking 1 day/week but sister Shanta believes this is inaccurate
- continue MSAS protocol
- thiamine/MV/Folic acid
- speech therapy, regular diet
-off phenobarbital taper 24 hours no significant withdrawal symptoms, stable for discharge home with home services and outpatient follow up recommendations.
Acute hypoxic respiratory insufficiency on 2L
L rib pain
- patient unsure if he fell
- no trauma, no fractures
- CXR clear
- off O2
Type 2 DM
- continue Basal/bolus
- continue SSI
- continue Metformin
- continue Alogliptin
- A1c: 7.5%
Essential HTN
- monitor BP
- continue Toprol XL
Parox A. Flutter
Parox A. Fib
- hx of Ablation
- not on AC due to noncompliance, fall risk in setting of ETOH
- continue Toprol XL
Mild Anemia
H&H stable
iron studies appreciated anemia of chronic disease, Iron wnl
B12 wnl
HLD - statin
Hx of COPD
HX of Tobacco Abuse
Bipolar Disorder/PTSD
Suicide attempt; drank bleach (~ 10 years)
- continue Buspar and Depakote
- Resume Seroquel at discharge (held due to interaction with phenobarb)
DVT ppx: SCDs
Code: Full
PT/OT appreciated home health
Discussed with patient at bedside and sister Shanta over phone
Total Time Preparing Discharge ___50____ minutes including examination of the patient, summary of the hospital stay, instructions for continuing care to all relevant caregivers; and preparation of discharge records, prescriptions, and referral
forms if necessary.
Anticipated Discharge: Today
Subjective/Interval History
-
Date of Service: February 27, 2024
No acute distress. No significant withdrawal symptoms. Patient reports feeling well, denies any new acute issues at this time. Eager to go home.
Objective Data
-
Vital Signs:
Vital Signs
Temp Pulse Resp BP Pulse Ox
98.5 F 66 18 123/71 98
02/27/24 03:00 02/27/24 03:00 02/27/24 03:00 02/27/24 03:00 02/27/24 03:00
I&O
02/26/24 02/27/24 02/28/24
06:59 06:59 06:59
Intake Total 1200 / 1200 240 / 240
Output Total 1000 / 1000
Balance 200 / 200 240 / 240
[2024-02-27 07:45] VITALS: BP 137/77
[2024-02-27 07:58] LABS: Glucose - Point of Care 122 mg/dl (70-99)
[2024-02-27] MEDS: NOVOLOG FLEXPEN-MODERATE RESISTANCE SC (08:04)
[2024-02-27] MEDS: TOPROL XL 25 MG PO (08:15)
[2024-02-27] MEDS: NOVOLOG FLEXPEN 6 UNITS SC ×2 (08:15→11:52)
[2024-02-27] MEDS: VITAMIN B1 100 MG PO (08:16)
[2024-02-27] MEDS: BUSPAR 10 MG PO (08:16)
[2024-02-27] MEDS: GLUCOPHAGE 1000 MG PO (08:16)
[2024-02-27] MEDS: FOLVITE 1 MG PO (08:17)
[2024-02-27] MEDS: LOW STRENGTH ASPIRIN 81 MG PO (08:17)
[2024-02-27] MEDS: FLOMAX 0.400000000000000022 MG PO (08:19)
[2024-02-27] MEDS: CRESTOR 40 MG PO (08:20)
--- NOTE | 2024-02-27 08:36 | W.DCSUMMARY ---
Discharge Summary
Discharge Data
Date of Admission: 02/23/24
Date of Discharge: 02/27/24
-
Pending Results: No
Hospital Course
68M history of Diabetes, afib, PTSD/Bipolar disorder, alcohol use disorder p/w ETOH use disorder/withdrawal. Sedated following dose of Ativan given in the emergency department. Patient's sister called him earlier in the day and noted that he
sounded disoriented on the phone. She calledd 911 for a wellness check, and EMS brought him to the emergency department for evaluation. Patient noted that he had been on a drinking binge, but stated his last drink was about 24 hours ago. He
complained of feeling tremulous in the emergency department. Severe alcohol use disorder, acute alcohol dependence syndrome, reported heavy drinking 1 day/week but sister Shanta believes this is inaccurate. Treated with MSAS protocol and
phenobarbital taper. Alcohol withdrawal symptoms improved over the course of hospitalization. Last 24 hr hospitalization, patient was monitored off phenobarbital and showed no significant withdrawal symptoms. Initially acute hypoxic respiratory
insufficiency on 2L, patient also reported left rib pain. CXR however clear, no fractures noted. Patient was eventually weaned off oxygen supplementation. Medically stable, patient was discharged home with home services and outpatient follow up
recommendations.
Discharge Plan
-
Patient Disposition: Home with Home Care
Discharge Diagnosis/Procedures: Alcohol Withdrawal, Acute Hypoxic Respiratory Insufficiency resolved, diabetes, hypertension, paroxysmal atrial fibrillation, anemia of chronic disease, hyperlipidemia, COPD, bipolar disorder/PTSD
Condition: Good
Diet: Diabetic, Carb Controlled
Activity: As tolerated
Driving Restrictions: No driving
Bathing Restrictions: None
Blood Work: Please repeat CBC and BMP with primary care provider in 1 week of discharge.
Other Services: VN, PT and OT
Activity Restrictions/Additional Instructions:
Please follow up with primary care provider in 1 week of discharge.
Alcohol cessation is strongly advised. Further use will likely lead to return of symptoms, worsening of your overall condition, and increase your risk of morbidity and even possibility of .
Instructions: Alcohol Withdrawal (DC), Alcohol Use Disorder (DC)
Referrals:
UNKNOWN - PT DOES,NOT KNOW [Family Provider] -
Prescriptions:
Continued
furosemide 20 mg tablet
20 mg PO MOWEFR
quetiapine 200 mg Tablet
200 mg PO DAILY
thiamine HCl (vitamin B1) [Vitamin B-1] 100 mg Tablet
100 mg PO DAILY
buspirone 10 mg Tablet
10 mg PO TID
divalproex 500 mg Tablet Extended Release 24 Hr
1,000 mg PO HS
gabapentin 300 mg Capsule
300 mg PO TID
mirtazapine 45 mg Tablet
45 mg PO HS
aspirin 81 mg Tablet,Chewable
81 mg PO DAILY
quetiapine 400 mg Tablet Extended Release 24 Hr
800 mg PO HS
metoprolol succinate 25 mg Tablet Extended Release 24 Hr
25 mg PO DAILY 30 Days Qty: 30 0RF
cholecalciferol (vitamin D3) [Vitamin D3] 50 mcg (2,000 unit) Tablet
50 mcg PO WEEKLY
rosuvastatin 40 mg Tablet
40 mg PO DAILY
sennosides [senna] 8.6 mg Tablet
8.6 mg PO HS
tamsulosin [Flomax] 0.4 mg Capsule
0.4 mg PO DAILY
albuterol sulfate 90 mcg/actuation Hfa Aerosol Inhaler
2 puff INHALATION Q4HPRN PRN (Reason: sob)
folic acid 800 mcg Tablet
0.8 mg PO DAILY
fluticasone propion-salmeterol [Advair HFA] 115-21 mcg/actuation Hfa Aerosol Inhaler
2 puff INHALATION BID
insulin aspart U-100 [Novolog U-100 Insulin aspart] 100 unit/mL Solution
6 unit SC TID Qty: 0 0RF
insulin glargine-yfgn 100 unit/mL (3 mL) Insulin Pen
20 unit SC HS Qty: 0 0RF
alogliptin 6.25 mg Tablet
6.25 mg PO DAILY
metformin 1,000 mg Tablet Extended Release 24hr
1,000 mg PO BID
Discharge Orders:
Discharge Patient (As Directed); Ordered 02/27/24
Ordered By: Zofia Sauceda
Discharge Date and Time
Discharge Date/Time: 02/27/24 13:00
Print Language: CROATIAN
--- NOTE | 2024-02-27 09:20 | CM ---
Addendum entered by Rosana Dickey RN 02/27/24 10:00:
Ava [phone] SW from [facility] given Acute Care number to set up payment for ambulance .
Original Note:
entered order for discharge.
Spoke with mimi Rush at [facility] she is aware of dc today to home with [facility] VN
Spoke with [facility] notified of dc.[facility] will pay for ambulance . with staff Acute Care number [phone] option 0 to set up payment.[facility] transportation to home will be covered from [facility].Medical nec form
completed.
PT OT from [facility]. Suggested home with VN .
SN PT OT all set up for him already with [facility] .
PLAN: Home with [facility] VN fax [phone]
[2024-02-27 11:37] LABS: Glucose - Point of Care 175 mg/dl (70-99)
[2024-02-27] MEDS: NOVOLOG FLEXPEN-MODERATE RESISTANCE 1 UNITS SC (11:52)
[2024-02-27 12:00] VITALS: BP 128/78
== END 2024-02-27 13:00 | disposition home health service (06) | DRG 897 ==
LOC: 4 EAST ACU 23:36
PROVIDERS: Internal Medicine; Physician Assistant Medical; ADMITTING PHYSICIAN Internal Medicine; ATTENDING PHYSICIAN Internal Medicine; EMERGENCY PHYSICIAN Emergency Medicine
DX: F10.239 Alcohol dependence with withdrawal, unspecified (principal); I48.92 Unspecified atrial flutter; Z87.891 Personal history of nicotine dependence; I10 Essential (primary) hypertension; K21.9 Gastro-esophageal reflux disease without esophagitis; M51.9 Unspecified thoracic, thoracolumbar and lumbosacral intervertebral disc disorder; E78.00 Pure hypercholesterolemia, unspecified; F31.9 Bipolar disorder, unspecified; E11.9 Type 2 diabetes mellitus without complications; I48.0 Paroxysmal atrial fibrillation; F43.10 Post-traumatic stress disorder, unspecified; R09.02 Hypoxemia; R06.89 Other abnormalities of breathing; D63.8 Anemia in other chronic diseases classified elsewhere; J44.9 Chronic obstructive pulmonary disease, unspecified
CPT/HCPCS: 70450; 71111; 76700; 80053; 81003; 82077; 82607; 82962; 83036; 83540; 83550; 83735; 85025; 85027; 85610; 85730; 92610; 93005; 94640; 96365; 96375; 97116; 97162; 97166; 97535; 99285

== ENCOUNTER 2024-03-24 16:41 | Emergency (ER) | payer OTHER, SELFPAY ==
[2024-03-24 16:46] VITALS: BP 100/61
[2024-03-24 17:40] LABS: % Basophils 0.6 % (0-2); % Eosinophils 1.5 % (0-6); % Immature Granulocytes 0.3 % (0-0.5); % Monocytes 11.2 % (1.7-9.3); % Neutrophils 65.4 % (42.2-75.2); Absolute Eosinophils 0.1 10^3/uL (0-0.7); Absolute Lymphocytes 1.5 10^3/uL (1.2-3.4); Absolute Monocytes 0.8 10^3/uL (0.1-0.6); Absolute Neutrophils 4.7 10^3/uL (1.4-6.5); Hematocrit 33.2 % (39.0-52.0); Hemoglobin 11.8 g/dL (13.0-18.0); Mean Corp Hgb Conc. 35.5 g/dL (33.0-37.0); Mean Corpuscular Hgb 33.2 pg (27.0-31.0); Mean Corpuscular Volume 93.5 fL (80.0-94.0); Mean Platelet Volume 10.1 fL (7.4-10.4); Nucleated Red Blood Cells % 0 % (-); Platelet Count 191 10^3/uL (130-400); Red Blood Cell Count 3.55 10^6/uL (4.70-6.10); Red Cell Dist. Width 14.9 % (11.5-14.5); White Blood Cell Count 7.2 10^3/uL (4.8-10.8)
[2024-03-24 17:50] LABS: ALT (SGPT) 17 U/L (0-50); AST (SGOT) 34 U/L (17-59); Albumin 3.5 g/dl (3.5-5.0); Alkaline Phosphatase 72 U/L (38-126); Blood Urea Nitrogen 9 mg/dl (9-20); Calcium 9.2 mg/dl (8.4-10.2); Carbon Dioxide 24 mmol/L (22-30); Chloride 100 mmol/L (98-107); Glucose 89 mg/dl (70-99); Potassium 4.1 mmol/L (3.5-5.1); Sodium 134 mmol/L (135-145); Total Bilirubin 0.8 mg/dl (0.2-1.3); Total Protein 6.4 g/dl (6.3-8.2); eGFR > 60.00
--- NOTE | 2024-03-24 20:55 | ED.GENMED ---
History of Present Illness
General
Chief Complaint: Weakness
Time Seen by Provider: 03/24/24 20:55
Travel History
Have you had any contact with someone who has COVID-19?: No
Do you have any symptoms of coronavirus? Fever > 100 degrees, chills, cough, shortness of breath, sore throat, loss of taste or smell, muscle aches, or headache?: No
History of Present Illness
History of Present Illness:
HPI: Patient came in by ambulance�he lives at home by himself and felt very weak to the point that he fell. The patient feels dehydrated. He is somewhat unsure as to exactly what happened. He thinks he may have struck his head.
EXAM:
GENERAL: Well appearing in no distress, he does not appear intoxicated
HEAD: There is some dried blood noted to the left side of the forehead
C-SPINE: There is no midline C-spine tenderness
HEENT: Moist oral mucosa
CARDIOVASCULAR: No murmurs, normal heart rate, regular rhythm, No chest wall tenderness
PULMONARY: No respiratory distress, breath sounds are clear and equal
ABDOMEN: Soft with no peritoneal signs, no tenderness
NEUROLOGIC: Excellent strength all extremities, no coordination deficits
PSYCHIATRIC: Appropriate mental status, normal insight and judgement
EXTREMITIES: Nontender, no edema, moves all extremities equally, there is a U-shaped laceration which is superficial along with some abraded skin to the left fifth digit with no loss of function
SKIN: No rash, no lesions
TIME OF INITIAL ENCOUNTER: 9 PM
NUMBER AND COMPLEXITY OF PROBLEMS ADDRESSED AT THE ENCOUNTER
� Chronic conditions affecting care: Alcoholism, diabetes, former smoker, high blood pressure, seizure disorder, bipolar, anxiety/depression, PTSD
� Acute Exacerbation and/or Progression of Chronic Illness: This is an acute problem
� Differential Diagnosis includes: Intracranial hemorrhage, anemia, electrolyte abnormality, dysrhythmia
AMOUNT AND/OR COMPLEXITY OF DATA TO BE REVIEWED AND ANALYZED
� I performed an independent evaluation of and my interpretation is:
EKG: Sinus 87, left axis deviation, nonspecific ST abnormality
CT: CT imaging of the brain shows no acute abnormality
X-rays:
Laboratory Studies: White count normal at 7.2, hemoglobin 11.8, chemistries unremarkable
Other:
� Review of other/old records: I reviewed records, the patient was seen here with alcohol withdrawal admitted to the hospital 1 month ago
� Clinical information was obtained by an independent historian: None needed
� Prescriptions/Medications Considered but not given:
� Further testing considered but not performed:
RISK OF COMPLICATIONS AND/OR MORBIDITY OR MORTALITY OF PATIENT MANAGEMENT
� Social determinants of health affecting care: Lives at home, alcoholism
� Discussion with other providers:
� Escalation of care including admission/observation vs risk of discharge considered: CT imaging reassuring. Labs unremarkable. He was given IV fluids. Clinical condition is essentially unchanged and he appears well enough for
discharge. I did clean and dress the left finger wound with Surgicel pressure dressing. I told him that he could just use a Band-Aid tomorrow.
Past History
Past History
ED Past Medical History: GERD (Gastritis), HTN, IDDM, Seizures, Psychiatric (bipolar disorder, panic disorder, suicide attempt, Depression) and Other (Anxiety, alcohol abuse, bipolar disorder, arthritis, lumbar disc disease)
ED Past Surgical History: Other (partial gastrectomy 3/4 stomach removed after drinking bleach, hernia repair)
Social History
Tobacco: Former smoker
Alcohol: Chronic alcoholic
Drug: None
Personal:
Living: alone
Employment: Disabled
Family History
Family History: Other (non contributory)
Phy Exam
Physical Exam
Physical Exam:
See HPI
Course
Orders/Labs/Results
Orders:
Orders
03/24/24 16:49
Electrocardiogram (*1) Urgent
Reason for Study: Fatigue / Weakness
EKG- Treatment ONCE
03/24/24 17:10
Complete Blood Count/With Diff Urgent
Comprehensive Metabolic Panel Urgent
03/24/24 20:56
0.9% Sodium Chloride 1000 ml [Nss] 1,000 ml IV BOLUS
03/24/24 21:02
CT Head W/o Iv Contrast Urgent
Comment:
Reason For Exam: trauma head injury
Abnormal Lab Results
03/24/24
17:10
RBC 3.55 L 10^6/uL
(4.70-6.10)
Hgb 11.8 L g/dL
(13.0-18.0)
Hct 33.2 L %
(39.0-52.0)
MCH 33.2 H pg
(27.0-31.0)
RDW 14.9 H %
(11.5-14.5)
Absolute Monos (auto) 0.8 H 10^3/uL
(0.1-0.6)
Monocytes % 11.2 H %
(1.7-9.3)
Sodium 134 L mmol/L
(135-145)
03/24/24 17:10
03/24/24 17:10
Vital Signs
Initial and Last Documented VS:
Initial Vital Signs
Temp Pulse Resp BP Pulse Ox
98.0 F 91 16 100/61 98
03/24/24 16:46 03/24/24 16:46 03/24/24 16:46 03/24/24 16:46 03/24/24 16:46
Last Documented Vital Signs
Temp Pulse Resp BP Pulse Ox
98.0 F 64 14 124/78 95
03/24/24 16:46 03/24/24 23:15 03/24/24 23:15 03/24/24 23:00 03/24/24 23:15
*Critical Care Note
Total Time (30-74mins, 75-104mins- exclusive of procedures): Not Applicable
ED Attending Note
-
Portions of this chart may have been created with voice recognition software.� Occasional wrong word or��sound alike� substitutions may have occurred due to the inherent limitations of voice recognition software.
Discharge Plan
Departure
Patient Disposition: Home (Routine Discharge)
Date of Disposition: 03/25/24
Time of Disposition: 01:02
Patient with high blood pressure during this ER visit?: Yes
Discharge Problem:
Fall, Syncope and collapse
Prescriptions:
No Action
furosemide 20 mg tablet
20 mg PO MOWEFR
quetiapine 200 mg Tablet
200 mg PO DAILY
thiamine HCl (vitamin B1) [Vitamin B-1] 100 mg Tablet
100 mg PO DAILY
buspirone 10 mg Tablet
10 mg PO TID
divalproex 500 mg Tablet Extended Release 24 Hr
1,000 mg PO HS
gabapentin 300 mg Capsule
300 mg PO TID
mirtazapine 45 mg Tablet
45 mg PO HS
aspirin 81 mg Tablet,Chewable
81 mg PO DAILY
quetiapine 400 mg Tablet Extended Release 24 Hr
800 mg PO HS
metoprolol succinate 25 mg Tablet Extended Release 24 Hr
25 mg PO DAILY 30 Days Qty: 30 0RF
cholecalciferol (vitamin D3) [Vitamin D3] 50 mcg (2,000 unit) Tablet
50 mcg PO WEEKLY
rosuvastatin 40 mg Tablet
40 mg PO DAILY
sennosides [senna] 8.6 mg Tablet
8.6 mg PO HS
tamsulosin [Flomax] 0.4 mg Capsule
0.4 mg PO DAILY
albuterol sulfate 90 mcg/actuation Hfa Aerosol Inhaler
2 puff INHALATION Q4HPRN PRN (Reason: sob)
folic acid 800 mcg Tablet
0.8 mg PO DAILY
fluticasone propion-salmeterol [Advair HFA] 115-21 mcg/actuation Hfa Aerosol Inhaler
2 puff INHALATION BID
insulin aspart U-100 [Novolog U-100 Insulin aspart] 100 unit/mL Solution
6 unit SC TID Qty: 0 0RF
insulin glargine-yfgn 100 unit/mL (3 mL) Insulin Pen
20 unit SC HS Qty: 0 0RF
alogliptin 6.25 mg Tablet
6.25 mg PO DAILY
metformin 1,000 mg Tablet Extended Release 24hr
1,000 mg PO BID
Referrals:
UNKNOWN - PT DOES,NOT KNOW [Family Provider] -
Activity Restrictions/Additional Instructions:
Basic blood work is unremarkable, CAT scan of the brain shows no bleeding in your brain. EKG is unremarkable. Follow-up with your primary care doctor. Return here if worse.
Interventions
Interventions:
*Risk Screen - Suicide Last Done: 03/24/24 21:45
*General Assessment Last Done: 03/24/24 21:45
*Neglect/Abuse Screening Last Done: 03/24/24 21:45
*ED COVID-19 Vaccine History Last Done: 03/24/24 16:46
ED- Cardiac Assessment Last Done: 03/24/24 21:45
ED- Neurological Assessment Last Done: 03/24/24 21:45
ED- Pulmonary Assessment Last Done: 03/24/24 21:45
Discharge Date and Time
Print Language: MACEDONIAN
[2024-03-24] MEDS: NSS 1000 IV (21:08)
[2024-03-24 21:09] VITALS: BP 134/87
[2024-03-24 22:00] VITALS: BP 132/76
[2024-03-24 23:00] VITALS: BP 124/78
[2024-03-25 00:46] VITALS: BP 143/88
[2024-03-25 01:00] VITALS: BP 134/88
[2024-03-25 02:00] VITALS: BP 139/83
[2024-03-25 08:30] VITALS: BP 129/77
== END 2024-03-25 02:46 | disposition home or self-care (01) ==
LOC: EMR 16:41
PROVIDERS: Student in an Organized Health Care Education/Training Program; EMERGENCY PHYSICIAN Emergency Medicine
DX: R55 Syncope and collapse (principal); W19.XXXA Unspecified fall, initial encounter; I10 Essential (primary) hypertension; Z87.891 Personal history of nicotine dependence
CPT/HCPCS: 99285; 96360; 70450; 80053; 85025; 93005

== ENCOUNTER 2024-03-29 12:38 | Emergency (ER) | payer OTHER, SELFPAY ==
[2024-03-29 12:43] VITALS: BP 127/83
[2024-03-29 12:45] VITALS: BP 127/83
[2024-03-29 12:49] VITALS: BMI 29.2
[2024-03-29 12:49] LABS: Glucose - Point of Care 178 mg/dl (70-99)
[2024-03-29 13:00] VITALS: BP 131/85
[2024-03-29 13:00] LABS: % Basophils 0.6 % (0-2); % Eosinophils 3.1 % (0-6); % Immature Granulocytes 1.8 % (0-0.5); % Lymphocytes 26.1 % (20.5-51.1); % Monocytes 7.5 % (1.7-9.3); % Neutrophils 60.9 % (42.2-75.2); Absolute Eosinophils 0.2 10^3/uL (0-0.7); Absolute Immature Granulocytes 0.1 10^3/uL (0-0.05); Absolute Lymphocytes 1.3 10^3/uL (1.2-3.4); Absolute Monocytes 0.4 10^3/uL (0.1-0.6); Absolute Neutrophils 3.1 10^3/uL (1.4-6.5); Hematocrit 31.5 % (39.0-52.0); Hemoglobin 11.4 g/dL (13.0-18.0); Mean Corp Hgb Conc. 36.2 g/dL (33.0-37.0); Mean Corpuscular Volume 91.3 fL (80.0-94.0); Mean Platelet Volume 9.3 fL (7.4-10.4); Nucleated Red Blood Cells % 0 % (-); Platelet Count 209 10^3/uL (130-400); Red Blood Cell Count 3.45 10^6/uL (4.70-6.10); Red Cell Dist. Width 14.6 % (11.5-14.5); White Blood Cell Count 5.1 10^3/uL (4.8-10.8)
[2024-03-29 13:13] LABS: ALT (SGPT) 15 U/L (0-50); AST (SGOT) 23 U/L (17-59); Albumin 3.6 g/dl (3.5-5.0); Alkaline Phosphatase 72 U/L (38-126); Blood Urea Nitrogen 6 mg/dl (9-20); Calcium 9.2 mg/dl (8.4-10.2); Carbon Dioxide 23 mmol/L (22-30); Chloride 100 mmol/L (98-107); Estimated Creatinine Clearance 109 ml/min; Glucose 161 mg/dl (70-99); Potassium 4.3 mmol/L (3.5-5.1); Sodium 134 mmol/L (135-145); Total Bilirubin 0.4 mg/dl (0.2-1.3); Total Protein 6.3 g/dl (6.3-8.2); eGFR > 60.00
[2024-03-29] MEDS: THIAMINE INJECTION 100 MG IV (13:28)
[2024-03-29] MEDS: ATIVAN 1 MG IV (13:28)
[2024-03-29] MEDS: NSS 500 IV (13:30)
[2024-03-29 14:00] VITALS: BP 142/75
[2024-03-29 14:14] LABS: Alcohol 148 mg/dl
--- NOTE | 2024-03-29 14:16 | ED.GENMED ---
History of Present Illness
General
Chief Complaint: Change in Mental Status
Source: patient and ambulance crew
Exam Limitations: none
Time Seen by Provider: 03/29/24 12:42
Nursing documentation reviewed up to this point in time: agreed with
Travel History
Have you had any contact with someone who has COVID-19?: No
Do you have any symptoms of coronavirus? Fever > 100 degrees, chills, cough, shortness of breath, sore throat, loss of taste or smell, muscle aches, or headache?: No
History of Present Illness
History of Present Illness:
68 y/o M with h/o alcohol abuse, htn
here after someone found him on the ground sitting outside his apt
he apparntly seemed disoriented
he claims that he lowerd himself to the ground after becoming weak when he walked across the street to buy alcohol, 'dioni fine' which is what he drinks
he says it is an 8% malt beer
he rememebers feeling lightheaded but doesn't beieve he fully passed out
he knows he didn't hurt himself
he didn't wnat to come by someone drove by him and thought he seemed confused so they called 911
pt has no complaints
he does have a tremor which he says he gets after he uses alcohol binge drinking for a few days
he gives different answers regarding when he last drank, denies that he drank any today and thinks it has been a few days
lives alone
Past History
Past History
ED Past Medical History: GERD (Gastritis), HTN, IDDM, Seizures, Psychiatric (bipolar disorder, panic disorder, suicide attempt, Depression) and Other (Anxiety, alcohol abuse, bipolar disorder, arthritis, lumbar disc disease)
ED Past Surgical History: Other (partial gastrectomy 3/4 stomach removed after drinking bleach, hernia repair)
Social History
Tobacco: Former smoker
Alcohol: Chronic alcoholic
Drug: None
Personal:
Living: alone
Employment: Disabled
Family History
Family History: Other (non contributory)
Review of Systems
Review of Systems
Allergies reviewed?: Yes
All Other Systems: Not applicable
Phy Exam
Physical Exam
Physical Exam:
GENERAL: Alert , in no apparent distress
HEAD: NCAT
EYE: pupils equal and reactive, no nystagmus, no photophobia
NECK: Supple,full rom, nontender
ENT: o/p clr, mmm.
CARDIAC: Regular rate and rhythm . no edema
LUNGS: Clear breath sounds bilaterally, no acute respiratory distress, no wheezes/rales/rhonchi
ABDOMEN: Soft, without focal tenderness, no r/g, no cvat
NEUROLOGICAL: Alert and orientedx 4, cn intact, no facial asymmetry, 5/5 strength in UE/LE, sensation intact, romberg neg, ambulates without assistance, neg pronator drift
tremor at rest right hand
SKIN: Warm and dry, skin intact.
MUSCULOSKELETAL: No edema, well perfused.
PSYCH: Normal and appropriate interaction.
Course
Orders/Labs/Results
Orders:
Orders
03/29/24 12:48
Electrocardiogram (*1) Urgent
Reason for Study: Fatigue / Weakness
EKG- Treatment ONCE
03/29/24 12:53
Alcohol Urgent
CMP [Comprehensive Metabolic Panel] Urgent
Complete Blood Count/With Diff Urgent
03/29/24 13:14
Add On- LAB Urgent
Tests Added?: alcohol
CT Head W/o Iv Contrast Urgent
Comment:
Reason For Exam: fall
0.9% Sodium Chloride 500 ml [Nss] 500 ml IV BOLUS
Lorazepam [Ativan] 1 mg IV NOW STA
Thiamine Injection 100 mg IV NOW STA
Abnormal Lab Results
03/29/24 03/29/24
12:48 12:53
RBC 3.45 L 10^6/uL
(4.70-6.10)
Hgb 11.4 L g/dL
(13.0-18.0)
Hct 31.5 L %
(39.0-52.0)
MCH 33.0 H pg
(27.0-31.0)
RDW 14.6 H %
(11.5-14.5)
Abs Immat Gran (auto) 0.1 H 10^3/uL
(0-0.05)
Immature Gran % 1.8 H %
(0-0.5)
Sodium 134 L mmol/L
(135-145)
BUN 6 L mg/dl
(9-20)
Glucose 161 H mg/dl
(70-99)
POC Glucose 178 H mg/dl
(70-99)
03/29/24 12:53
03/29/24 12:53
Vital Signs
Initial and Last Documented VS:
Initial Vital Signs
Temp Pulse Resp BP Pulse Ox
97.7 F 93 15 127/83 97
03/29/24 12:43 03/29/24 12:43 03/29/24 12:43 03/29/24 12:43 03/29/24 12:43
Last Documented Vital Signs
Temp Pulse Resp BP Pulse Ox
97.7 F 96 13 128/81 97
03/29/24 12:43 03/29/24 15:45 03/29/24 15:45 03/29/24 15:00 03/29/24 15:45
MDM/Problems Addressed
Differential Diagnosis Includes:
intoxication, syncope, fall, withdreawal
MDM/Problems Addressed:
68 y/o M
alcohol abuse
here after someone saw him sitting on the ground and they wre worried he was disoriented
pt says he went across the street to get 'natty's daddy' and walked back and says he fell or lowered himself to the ground and didn't hit his head
he says he must have been drinking recently but isn't sure when his last drink was, the days run together
he also is shaking slightly which he says happenes when he drinks a lot and also when he doesn't drink
no h/o seizure alcohol related
here pt s awake and alert, neuro intact, no signs of trauma
only abnromatilyt was a slight tremor right hand
no other CIWA signs
was emirically given ativan
and then alcohol level 140s
otherwise labs unremarkable
head ct neg
ekg normal
pt wants to go home
doesn't have a ride
able to ambulate without assistance
clincally osber
arranged a lift to transport home
*Critical Care Note
Total Time (30-74mins, 75-104mins- exclusive of procedures): Not Applicable
ED Attending Note
-
Portions of this chart may have been created with voice recognition software.� Occasional wrong word or��sound alike� substitutions may have occurred due to the inherent limitations of voice recognition software.
Discharge Plan
Departure
Patient Disposition: Home (Routine Discharge)
Date of Disposition: 03/29/24
Time of Disposition: 16:07
Patient with high blood pressure during this ER visit?: No
Condition: Fair
Covid-19: Not Applicable
Discharge Problem:
Alcohol intoxication, Fall
Instructions: Alcohol Use Disorder (DC)
Prescriptions:
No Action
furosemide 20 mg tablet
20 mg PO MOWEFR
quetiapine 200 mg Tablet
200 mg PO DAILY
thiamine HCl (vitamin B1) [Vitamin B-1] 100 mg Tablet
100 mg PO DAILY
buspirone 10 mg Tablet
10 mg PO TID
divalproex 500 mg Tablet Extended Release 24 Hr
1,000 mg PO HS
gabapentin 300 mg Capsule
300 mg PO TID
mirtazapine 45 mg Tablet
45 mg PO HS
aspirin 81 mg Tablet,Chewable
81 mg PO DAILY
quetiapine 400 mg Tablet Extended Release 24 Hr
800 mg PO HS
metoprolol succinate 25 mg Tablet Extended Release 24 Hr
25 mg PO DAILY 30 Days Qty: 30 0RF
cholecalciferol (vitamin D3) [Vitamin D3] 50 mcg (2,000 unit) Tablet
50 mcg PO WEEKLY
rosuvastatin 40 mg Tablet
40 mg PO DAILY
sennosides [senna] 8.6 mg Tablet
8.6 mg PO HS
tamsulosin [Flomax] 0.4 mg Capsule
0.4 mg PO DAILY
albuterol sulfate 90 mcg/actuation Hfa Aerosol Inhaler
2 puff INHALATION Q4HPRN PRN (Reason: sob)
folic acid 800 mcg Tablet
0.8 mg PO DAILY
fluticasone propion-salmeterol [Advair HFA] 115-21 mcg/actuation Hfa Aerosol Inhaler
2 puff INHALATION BID
insulin aspart U-100 [Novolog U-100 Insulin aspart] 100 unit/mL Solution
6 unit SC TID Qty: 0 0RF
insulin glargine-yfgn 100 unit/mL (3 mL) Insulin Pen
20 unit SC HS Qty: 0 0RF
alogliptin 6.25 mg Tablet
6.25 mg PO DAILY
metformin 1,000 mg Tablet Extended Release 24hr
1,000 mg PO BID
Referrals:
UNKNOWN - PT DOES,NOT KNOW [Family Provider] -
Activity Restrictions/Additional Instructions:
You still had alcohol in your system from the last time you drank.
You had no signs of trauma from your fall.
Make sure you do not go into alcohol withdrawal, if you would like help with detox you can follow-up or return as needed.
Return for any concerns
Interventions
Interventions:
*Risk Screen - Suicide Last Done: 03/29/24 15:30
*General Assessment Last Done: 03/29/24 13:08
*Neglect/Abuse Screening Last Done: 03/29/24 15:30
ED- Fall Risk Assessment Last Done: 03/29/24 13:08
*ED COVID-19 Vaccine History Last Done: 03/29/24 13:08
*Nursing Disposition Last Done: 03/29/24 16:15
ED- Pulmonary Assessment Last Done: 03/29/24 13:08
ED- Neurological Assessment Last Done: 03/29/24 13:08
ED- Cardiac Assessment Last Done: 03/29/24 13:08
Discharge Date and Time
Discharge Date/Time: 03/29/24 16:16
Print Language: YORUBA
[2024-03-29 15:00] VITALS: BP 128/81
== END 2024-03-29 16:16 | disposition home or self-care (01) ==
LOC: EMR 12:38
PROVIDERS: EMERGENCY PHYSICIAN Emergency Medicine
DX: F10.129 Alcohol abuse with intoxication, unspecified (principal); W19.XXXA Unspecified fall, initial encounter; Z87.891 Personal history of nicotine dependence
CPT/HCPCS: 99285; 96374; 96375; 70450; 80053; 82077; 82962; 85025; 93005

== ENCOUNTER 2024-04-02 15:21 | Inpatient (IN) | payer OTHER, SELFPAY ==
[2024-04-02] VITALS (18 sets, daily range): BP systolic 103–152; BP diastolic 60–93; BMI 25.1
[2024-04-02 11:53] LABS: Glucose - Point of Care 329 mg/dl (70-99)
[2024-04-02 12:13] LABS: % Basophils 0.4 % (0-2); % Eosinophils 1.2 % (0-6); % Immature Granulocytes 0.5 % (0-0.5); % Lymphocytes 13.2 % (20.5-51.1); % Monocytes 6.9 % (1.7-9.3); % Neutrophils 77.8 % (42.2-75.2); Absolute Eosinophils 0.1 10^3/uL (0-0.7); Absolute Immature Granulocytes 0.1 10^3/uL (0-0.05); Absolute Lymphocytes 1.2 10^3/uL (1.2-3.4); Absolute Monocytes 0.6 10^3/uL (0.1-0.6); Absolute Neutrophils 7.2 10^3/uL (1.4-6.5); Hematocrit 34.4 % (39.0-52.0); Mean Corp Hgb Conc. 34.9 g/dL (33.0-37.0); Mean Corpuscular Hgb 33.2 pg (27.0-31.0); Mean Corpuscular Volume 95.3 fL (80.0-94.0); Mean Platelet Volume 9.8 fL (7.4-10.4); Nucleated Red Blood Cells % 0.2 % (-); Platelet Count 224 10^3/uL (130-400); Red Blood Cell Count 3.61 10^6/uL (4.70-6.10); Red Cell Dist. Width 14.9 % (11.5-14.5); White Blood Cell Count 9.3 10^3/uL (4.8-10.8)
[2024-04-02 12:44] LABS: ALT (SGPT) 17 U/L (0-50); AST (SGOT) 26 U/L (17-59); Albumin 3.5 g/dl (3.5-5.0); Alkaline Phosphatase 70 U/L (38-126); Blood Urea Nitrogen 13 mg/dl (9-20); Calcium 8.6 mg/dl (8.4-10.2); Carbon Dioxide 22 mmol/L (22-30); Chloride 97 mmol/L (98-107); Estimated Creatinine Clearance 96 ml/min; Glucose 267 mg/dl (70-99); Potassium 4.3 mmol/L (3.5-5.1); Sodium 135 mmol/L (135-145); Total Bilirubin 1.4 mg/dl (0.2-1.3); Total Protein 6.3 g/dl (6.3-8.2); eGFR > 60.00
[2024-04-02 12:45] LABS: Alcohol None Detected
[2024-04-02 13:02] LABS: Magnesium 1.9 mg/dl (1.6-2.3)
--- NOTE | 2024-04-02 13:13 | ED.GENMED ---
History of Present Illness
General
Chief Complaint: Fall
Source: patient
Exam Limitations: none
Time Seen by Provider: 04/02/24 12:40
Nursing documentation reviewed up to this point in time: agreed with
Travel History
Have you had any contact with someone who has COVID-19?: No
Do you have any symptoms of coronavirus? Fever > 100 degrees, chills, cough, shortness of breath, sore throat, loss of taste or smell, muscle aches, or headache?: No
History of Present Illness
History of Present Illness:
Patient with history of chronic alcoholism, who last drank 2 days ago, presents to ED after fall at home. Patient states that he felt shaky and dizzy when he stood up, which caused him to fall to his right side. Patient is complaining of right jaw
pain, rib pain, and lower back pain. Denies loss of consciousness. Denies neck pain. Denies headache. Denies dizziness. Denies loss of sensation or weakness. Denies chest pain. Denies shortness of breath. Denies abdominal pain. Denies
nausea or vomiting. Patient states that secondary to pain and generalized weakness, he was unable to stand up after he fell down. He proceeded to call medical alert, which prompted 911 to respond and for paramedics to bring patient to ED for an
evaluation. Patient states that he feels as though he is going to withdrawal currently.
Past History
Past History
ED Past Medical History: GERD (Gastritis), HTN, IDDM, Seizures, Psychiatric (bipolar disorder, panic disorder, suicide attempt, Depression) and Other (Anxiety, alcohol abuse, bipolar disorder, arthritis, lumbar disc disease)
ED Past Surgical History: Other (partial gastrectomy 3/4 stomach removed after drinking bleach, hernia repair)
Social History
Tobacco: Former smoker
Alcohol: Chronic alcoholic
Drug: None
Personal:
Living: alone
Employment: Disabled
Family History
Family History: Other (non contributory)
Review of Systems
Review of Systems
Allergies reviewed?: Yes
All Other Systems: ROS reviewed and negative except as documented in HPI and ROS
Constitutional: Reports no symptoms
EENT: Reports no symptoms
Respiratory: Reports no symptoms
Cardiac: Reports no symptoms
ABD/GI: Reports no symptoms
: Reports no symptoms
Musculoskeletal: Reports back pain and other (Rib pain, facial pain)
Skin: Reports no symptoms
Neurological: Reports dizzy and weakness; Denies headache
Phy Exam
Physical Exam
Physical Exam:
Physical Exam
General: mild distress, not acutely ill. afebrile
Head: nc/at. eomi
Neck: supple. no meningeal signs.
Heart: s1/s2 regular rate and rhythm, no murmur. equal radial pulses.
Lungs: no acute respiratory distress. clear bilaterally. mild right sided rib pain, along the midaxillary line, at level of rib#6-8
Abdomen: normal bowel sounds. not tender.
Neuro: alert and oriented. no focal neurological deficits. resting tremor noted.
Skin: no rash
Psychiatric: well kept. interactive and cooperative
Extremities: no edema. no calf tenderness.
Course
Orders/Labs/Results
Orders:
Orders
04/02/24 11:53
EKG [Electrocardiogram (*1)] Urgent
Reason for Study: Vertigo / Dizzy
04/02/24 11:54
EKG- Treatment ONCE
04/02/24 11:59
Alcohol Urgent
Complete Blood Count/With Diff Urgent
Comprehensive Metabolic Panel Urgent
Magnesium Urgent
Comment: ADD ON
04/02/24 12:40
Add On- LAB Urgent
Tests Added?: magnesium
04/02/24 13:00
CT Cervical Spine W/o Iv Contr Urgent
Comment:
Reason For Exam: trauma
CT Facial Bones W/o Iv Contras Urgent
Comment:
Reason For Exam: trauma
CT Head W/o Iv Contrast Urgent
Comment:
Reason For Exam: trauma
CR Lumbar Spine Comp Min 4 Vw* Urgent
Comment:
Reason For Exam: trauma
CR Ribs-right 3 Vw W/pa Chest* Urgent
Comment:
Reason For Exam: trauma
04/02/24 13:02
0.9% Sodium Chloride 1000 ml [Nss] 1,000 ml IV BOLUS
Lorazepam [Ativan] 1 mg IV NOW STA
04/02/24 14:11
Acetaminophen [Tylenol] 1,000 mg PO NOW STA
04/02/24 Dinner
2200 calorie (18 carb) Diabetic
At Your Request: Limited Participation
04/02/24 15:03
Admit/Transfer Patient As Directed
Co-Sign Provider:
Level of Care: Inpatient admission
Assign to:: IMU- Intermediate Care
Physician / Group: Zeny/hospitalist
Diagnosis: alcohol withdrawal
Reason for Hospitalization: alcohol withdrawal
Expected length of stay greater than two midnights?: Yes
ELOS- Estimated Length of Stay in days: 3
I certify the patient meets the requirements for IP care: Yes
04/02/24 15:08
Code Status As Directed
Resuscitation Status: Full Code
04/02/24 16:51
0.9% Sodium Chloride [Nss (Preservative Free)] See Protocol IV PRN PRN
Bisacodyl [Dulcolax] 10 mg RECTAL [id number] PRN
Buspirone [Buspar] 10 mg PO TID
Dextrose 50%-Water [Dextrose 50% Syringe] 12.5 grams IV [id number] PRN
Docusate W/Senna [Senokot-S] 1 tablet PO BIDPRN PRN
FOLic ACID [Folvite] 1 mg 0.9% Sodium Chloride 50 ml [Nss] 50 ml IV DAILYPRN
Glucagon [GlucaGen] 1 mg IM PRN PRN
Insulin Aspart Corrective Low [Novolog Flexpen-Low Resistance] See Protocol SC AC
Insulin Aspart Pen [Novolog Flexpen] 3 units SC AC
Lorazepam [Ativan] 1 mg IV Q1HPRN PRN
Lorazepam [Ativan] 1 mg PO Q2HPRN PRN
Lorazepam [Ativan] 2 mg IV Q1HPRN PRN
Polyethylene Glycol Powder [Miralax] 17 grams PO DAILYPRN PRN
Thiamine Injection 200 mg IV Q8
04/02/24 16:51
Case Management Consult Once
Case Management Consult: Other
Comment: Substance abuse counseling
DIETARY CONSULT Routine
Reason for Consult: Nutrition support, possible refeeding guidelines
Urine Drug Abuse Screen Routine
Activity As Directed
Activity Level: As Tolerated
Bedside Glucose Monitoring As Directed
Frequency: AC&HS
Additional Instructions:: Change to q6h if pt on TPN, tube feeding or not eating
MSAS SCORE As Directed
MSAS Score 0-4: Repeat MSAS every 2 hours until 0-4 for three consecutive assessments, then every 4 hours x 48
hours.
MSAS Score 5-7: For MILD withdrawl symptoms. Repeat MSAS and RASS every 2 hours
MSAS Score 8-11: For MODERATE withdrawal symptoms. Repeat MSAS and RASS every 1 hour. Consider ICU or IMU
level of care.
MSAS Score > 11: For SEVERE withdrawal symptoms. Repeat MSAS and RASS every 1 hour. Notify provider, consider
ICU level of care.
MSAS Additional Instructions: If no improvement or no decrease in score from severe to moderate within 12
hours, consult psychiatry
MSAS Notify Provider: Notify provider if patient requires more than 10 mg of Lorazepam in eight hour period.
Vital Signs As Directed
Frequency: Per unit guidelines
Occupational Therapy Consult [Ot Eval And Treat] Routine
Pt Eval And Treat Routine
Activity Level: As Tolerated
DX Deep Vein Thrombosis Video Routine
04/02/24 18:00
Enoxaparin Sodium [Lovenox] 40 mg SC QPM
04/02/24 20:00
Fluticasone/Salmeterol 115/21 [Advair Hfa 115/21 Mcg Inhaler] 2 puff INH R BID
04/02/24 22:00
Divalproex Extended Rel. 24 Hr [Depakote ER (24 Hr Release)] 1,000 mg PO HS
Insulin Glargine Lantus [Lantus] 10 units Subcutaneous Insulin Syringe [Syringe-Insulin] 0 unit SC HS
Mirtazapine [Remeron] 45 mg PO HS
Sennosides [Senokot] 8.6 mg PO HS
quetiapine See Dose Instructions PO HS
04/03/24 06:00
Complete Blood Count/No Diff IN AM
Comprehensive Metabolic Panel IN AM
Glycohemoglobin (HgbA1c) IN AM
Magnesium IN AM
04/03/24 08:00
Aspirin Chewable [Low Strength Aspirin] 81 mg PO DAILY
FOLic ACID [Folvite] 1 mg PO DAILY
Metoprolol Xl [Toprol Xl] 25 mg PO DAILY
Quetiapine Fumarate [Seroquel] 200 mg PO DAILY
Rosuvastatin Calcium [Crestor] 40 mg PO DAILY
Tamsulosin [Flomax] 0.4 mg PO DAILY
04/04/24 06:00
Complete Blood Count/No Diff IN AM
Comprehensive Metabolic Panel IN AM
Magnesium IN AM
04/04/24 08:00
Furosemide [Lasix] 20 mg PO MoWeFr@0800
04/05/24 06:00
Complete Blood Count/No Diff IN AM
Comprehensive Metabolic Panel IN AM
Magnesium IN AM
04/05/24 20:00
Thiamine HCl [Vitamin B1] 100 mg PO BID
04/06/24 06:00
Complete Blood Count/No Diff IN AM
Comprehensive Metabolic Panel IN AM
Magnesium IN AM
04/07/24 06:00
Complete Blood Count/No Diff IN AM
Comprehensive Metabolic Panel IN AM
Magnesium IN AM
Abnormal Lab Results
04/02/24 04/02/24
11:52 11:59
RBC 3.61 L 10^6/uL
(4.70-6.10)
Hgb 12.0 L g/dL
(13.0-18.0)
Hct 34.4 L %
(39.0-52.0)
MCV 95.3 H fL
(80.0-94.0)
MCH 33.2 H pg
(27.0-31.0)
RDW 14.9 H %
(11.5-14.5)
Abs Immat Gran (auto) 0.1 H 10^3/uL
(0-0.05)
Absolute Neuts (auto) 7.2 H 10^3/uL
(1.4-6.5)
Neutrophils % 77.8 H %
(42.2-75.2)
Lymphocytes % 13.2 L %
(20.5-51.1)
Chloride 97 L mmol/L
(98-107)
Glucose 267 H mg/dl
(70-99)
Total Bilirubin 1.4 H mg/dl
(0.2-1.3)
POC Glucose 329 H mg/dl
(70-99)
04/02/24 11:59
04/02/24 11:59
Vital Signs
Initial and Last Documented VS:
Initial Vital Signs
Pulse BP
102 145/78
04/02/24 11:53 04/02/24 11:53
Last Documented Vital Signs
Temp Pulse Resp BP Pulse Ox
97.5 F 80 16 131/76 97
04/02/24 19:52 04/02/24 19:56 04/02/24 19:56 04/02/24 16:30 04/02/24 19:56
MDM/Problems Addressed
MDM/Problems Addressed:
CT/X-ray: no acute findings.
Patient high risk for continual alcohol withdrawal symptoms and potential injury. Patient will be admitted for further evaluation and treatment.
*Critical Care Note
Total Time (30-74mins, 75-104mins- exclusive of procedures): Not Applicable
ED Attending Note
-
Portions of this chart may have been created with voice recognition software.� Occasional wrong word or��sound alike� substitutions may have occurred due to the inherent limitations of voice recognition software.
Discharge Plan
Departure
Patient Disposition: Admit
Date of Disposition: 04/02/24
Time of Disposition: 14:39
Admit to: Telemetry
Presentation/result/management discussed w/ accepting MD/DO: Hospitalist
Discharge Problem:
Alcohol withdrawal, Contusion
Interventions
Interventions:
*Risk Screen - Suicide Last Done: 04/02/24 11:54
*General Assessment Last Done: 04/02/24 11:54
*Neglect/Abuse Screening Last Done: 04/02/24 11:54
ED- Fall Risk Assessment Last Done: 04/02/24 17:00
*ED COVID-19 Vaccine History Last Done: 04/02/24 11:54
*Nursing Disposition Last Done: 04/02/24 17:00
ED-Musculoskeletal Assessment Last Done: 04/02/24 11:59
ED- Neurological Assessment Last Done: 04/02/24 11:59
ED-Skin Assessment Last Done: 04/02/24 11:59
Discharge Date and Time
Discharge Date/Time: 04/02/24 17:01
[2024-04-02] MEDS: ATIVAN 1 MG IV (14:03)
[2024-04-02] MEDS: NSS 1000 IV (14:04)
[2024-04-02] MEDS: TYLENOL 1000 MG PO (14:13)
--- NOTE | 2024-04-02 14:38 | HPS.HSE ---
Family Physician
-
Family Physician: NOT KNOW UNKNOWN - PT DOES
Chief Complaint
-
Dizziness and fall at home due to alcohol withdrawal
History of Present Illness
HPI: 68-year-old male, with past medical history of chronic alcoholism/alcohol abuse, diabetes mellitus, A-fib, PTSD/Bipolar disorder; presents with alcohol withdrawal.
Patient was dizzy and fell at home. His last alcohol drink was 2-3 days prior to admission. He drinks about 15 to 30 cans of beer each time.
He does not appear to be a good historian and has blunted affect.
He apparently fell onto his right side and complained of right jaw, rib pain, and lower back pain to the ED physician.
He denies to loss of consciousness or other symptoms.
Medical History
Past Medical History
Past Medical History: Reports Other
Additional Past Medical History:
Diabetes Mellitus, Type II
Essential Hypertension
Paroxysmal Atrial Fibrillation
Bipolar Disorder / PTSD
Alcohol Use Disorder
Benzodiazepine Withdrawal Seizure
Lumbar Disc Disease
Past Surgical History: Reports Other
Additional Past Surgical History:
Subtotal Gastrectomy with Billroth-II
Inguinal Hernia Repair
Incisional Ventral Hernia Repair w/Mesh
Social History
Tobacco: Non-smoker
Alcohol: Binge drinker (beers)
Living: Alone ([facility])
Family History
Family History: Not pertinent
Allergies / Home Medications
Allergies reflects when Allergies were last updated in [employer].
Home Medications with original date entered in [employer]
Allergy/Medication List:
Allergies
Allergy/AdvReac Type Severity Reaction Status Date / Time
iodine [Iodine] Allergy flushing Verified 03/24/24 16:49
Penicillins Allergy Hives, Verified 03/24/24 16:49
flushing
venom-honey bee Allergy Anaphylaxis Verified 03/24/24 16:49
[bee venom (honey bee)]
Home Medications
furosemide 20 mg tablet 20 mg PO MOWEFR Fluid retention/Swelling 03/26/23
aspirin 81 mg chewable tablet 81 mg PO DAILY Blood clot prevention/tx 03/27/23
buspirone 10 mg tablet 10 mg PO TID Mental Health/Anxiety 03/27/23
divalproex 500 mg tablet,extended release 24 hr 1,000 mg PO HS Mental Health/Anxiety 03/27/23
gabapentin 300 mg capsule 300 mg PO TID ALCOHOL CONTROL 03/27/23
mirtazapine 45 mg tablet 45 mg PO HS Mental Health/Anxiety 03/27/23
quetiapine 200 mg tablet 200 mg PO DAILY Mental Health/Anxiety 03/27/23
quetiapine 400 mg tablet,extended release 24 hr 800 mg PO HS Mental Health/Anxiety 03/27/23
thiamine HCl (vitamin B1) 100 mg tablet (Vitamin B-1) 100 mg PO DAILY Supplement 03/27/23
metoprolol succinate 25 mg tablet,extended release 24 hr 25 mg PO DAILY 30 days #30 tabs 03/29/23
cholecalciferol (vitamin D3) 50 mcg (2,000 unit) tablet (Vitamin D3) 50 mcg PO WEEKLY Supplement 12/23/23
rosuvastatin 40 mg tablet 40 mg PO DAILY High Cholesterol 12/23/23
albuterol sulfate 90 mcg/actuation aerosol inhaler 2 puff inhalation Q4HPRN PRN sob 12/24/23
fluticasone propionate 115 mcg-salmeterol 21 mcg/actuation HFA inhaler (Advair HFA) 2 puff inhalation BID 12/24/23
folic acid 800 mcg tablet 0.8 mg PO DAILY 12/24/23
sennosides 8.6 mg tablet (senna) 8.6 mg PO HS 12/24/23
tamsulosin 0.4 mg capsule (Flomax) 0.4 mg PO DAILY 12/24/23
insulin aspart U-100 100 unit/mL subcutaneous solution (Novolog U-100 Insulin aspart) 6 unit (0.06 mL) SC TID #0 mL 12/25/23
insulin glargine-yfgn 100 unit/mL (3 mL) subcutaneous pen 20 unit (0.2 mL) SC HS #0 mL 12/25/23
alogliptin 6.25 mg tablet 6.25 mg PO DAILY 02/24/24
metformin 1,000 mg tablet,extended release 24hr (osmotic) 1,000 mg PO BID 02/24/24
Review of Systems
-
Neurological: Reports See HPI and Dizzy
Physical Exam
Vital Signs
Vital Signs
Temp Pulse Resp BP Pulse Ox
36.4 C 87 22 133/78 95
04/02/24 11:56 04/02/24 14:15 04/02/24 14:15 04/02/24 14:03 04/02/24 14:15
Physical Exam
General: Well Developed, Well Nourished, No Apparent Distress, Comfortable and Conversant
Respiratory: Clear and Non Labored Respirations; No Accessory Resp Muscle Use
Cardiac: S1/S2 and Regular Rhythm
GI: Soft, Non Tender and Non Distended
Musculoskeletal: No Cyanosis and No Edema
Skin: Warm and Dry
Neuro: Awake
Psych: Calm and Other (blunted affect); No Intact Judgment/Insight
Laboratory Results
-
04/02/24 11:59
04/02/24 11:59
Laboratory Results
Total Bilirubin 1.4 mg/dl (0.2-1.3) H 04/02/24 11:59
AST 26 U/L (17-59) 04/02/24 11:59
ALT 17 U/L (0-50) 04/02/24 11:59
Alkaline Phosphatase 70 U/L (38-126) 04/02/24 11:59
Data Reviewed
-
Diagnostic Radiology: Report Reviewed by me
CT Scan: Report Reviewed by me
Lab Data: Labs Reviewed by me
Impression/Plan
-
HPI: 68-year-old male, with past medical history of chronic alcoholism/alcohol abuse, diabetes mellitus, A-fib, PTSD/Bipolar disorder; presents with alcohol withdrawal.
Patient was dizzy and fell at home. His last alcohol drink was 2-3 days prior to admission. He drinks about 15 to 30 cans of beer each time.
He does not appear to be a good historian and has blunted affect.
He apparently fell onto his right side and complained of right jaw, rib pain, and lower back pain to the ED physician.
He denies to loss of consciousness or other symptoms.
A/P:
# Alcohol withdrawal in setting of alcohol use disorder/alcohol dependence
# Dizziness and mechanical fall due to above
Last drink was 2 days prior to admission
His CT head, Lumbar XR, rib XR were negative for fracture
Cont MSAS protocol with thiamine/Folic acid
CM to facilitate [facility] consult
PT OT eval
# Insulin-dependent diabetes
Continue Lantus but decrease dose to 10 units at bedtime (PLY CUTTER 20 units at bedtime)
Continue aspart but use 3 units 3 times daily (PLY CUTTER 6 units 3 times daily)
Cover with ISS
Hold PLY CUTTER Metformin and Alogliptin
Carb control diet
# Essential HTN
continue Toprol XL with hold parameter
# Parox A. Flutter/ Parox A. Fib
# hx of Ablation
not on AC due to noncompliance, fall risk in setting of ETOH
continue Toprol XL as above
# Mild Anemia, stable
# HLD - statin
# Hx of COPD
# HX of Tobacco Abuse
# Bipolar Disorder/PTSD
continue PLY CUTTER Buspar, Depakote, Seroquel
DVT ppx: Lovenox SQ
FC
--- NOTE | 2024-04-02 14:59 | PHANOTE ---
Med Rec- called patient mail order pharmacy [facility] no answer, called [facility] at [phone] and there going to fax over a medication list.
[2024-04-02 17:10] LABS: Glucose - Point of Care 214 mg/dl (70-99)
--- NOTE | 2024-04-02 17:35 | PTCARENOTE ---
Received patient on admission from ED via stretcher. Patient able to move himself from bed to stretcher with minimal assistance. Ox3, 96% RA; HRR 70s and NSR with occasional PVCs. Admission questions completed. Patient states he lives at [facility]
but is being evicted in 28 days. He states he has family but he is not close to them. He confirms that his sister in emergency contact but will not be picking him up on discharge and he has no ride. He informed this nurse that his only son overdosed
10yrs ago and his killed herself 8yrs ago. He denies suicidal ideation. He states he only started to use alcohol after the deaths of his family. Case management consult entered.
--- NOTE | 2024-04-02 17:43 | PTCARENOTE ---
MSAS =2 d/t observable hand tremors. Patient Ox3, pleasant and cooperative.
[2024-04-02] MEDS: NOVOLOG FLEXPEN 3 UNITS SC (17:49)
[2024-04-02] MEDS: LOVENOX 40 MG SC (17:50)
[2024-04-02] MEDS: THIAMINE INJECTION 200 MG IV ×2 (17:50→23:41)
[2024-04-02] MEDS: NOVOLOG FLEXPEN-LOW RESISTANCE 2 UNITS SC (17:50)
[2024-04-02] MEDS: BUSPAR 10 MG PO ×2 (17:50→21:09)
[2024-04-02] MEDS: ADVAIR HFA 115/21 MCG INHALER 2 PUFF INH (19:44)
[2024-04-02] MEDS: DEPAKOTE ER (24 HR RELEASE) 1000 MG PO (21:09)
[2024-04-02] MEDS: REMERON 45 MG PO (21:09)
[2024-04-02] MEDS: SENOKOT 8.59999999999999964 MG PO (21:10)
[2024-04-02 21:32] LABS: Glucose - Point of Care 426 mg/dl (70-99)
[2024-04-02 21:58] LABS: Glucose 214 mg/dl (70-99)
[2024-04-02] MEDS: LANTUS 0.100000000000000006 UNITS SC (22:15)
[2024-04-02] MEDS: TYLENOL 650 MG PO (22:15)
--- NOTE | 2024-04-02 22:21 | PTCARENOTE ---
Pt blood sugar read RR high, glucose blood draw ordered. Glucose reads 214, 10 units of lantus given.
--- NOTE | 2024-04-02 23:00 | PTCARENOTE ---
Pt blood sugar read RR high, glucose blood draw ordered. Blood draw glucose reads 214, 10 units of scheduled Lantus given.
[2024-04-03] VITALS (23 sets, daily range): BP systolic 105–155; BP diastolic 62–92; PULSE 86–95; O2SAT 91–94
[2024-04-03 00:12] LABS: Amphetamines Negative (Negative); Barbiturates Negative (Negative); Benzodiazepines Negative (Negative); Buprenorphine Negative (Negative); Cocaine Negative (Negative); Marijuana Negative (Negative); Methadone Negative (Negative); Methamphetamines Negative (Negative); Opiates Negative (Negative); Phencyclidine Negative (Negative); Tricyclic Antidepressants Positive (Negative)
[2024-04-03] MEDS: MELATONIN 5 MG PO (00:28)
[2024-04-03] MEDS: TYLENOL 650 MG PO ×3 (03:46→21:49)
--- NOTE | 2024-04-03 03:49 | PTCARENOTE ---
Pt states he would like to talk to a [employer]ician, he states it can wait until the morning. He would like to talk about his upcoming eviction, emotional support provided. [employer] Superintendent notified via TT.
[2024-04-03 04:46] LABS: Hematocrit 30.8 % (39.0-52.0); Mean Corp Hgb Conc. 35.7 g/dL (33.0-37.0); Mean Corpuscular Hgb 33.3 pg (27.0-31.0); Mean Corpuscular Volume 93.3 fL (80.0-94.0); Mean Platelet Volume 10.1 fL (7.4-10.4); Platelet Count 198 10^3/uL (130-400); Red Cell Dist. Width 14.7 % (11.5-14.5); White Blood Cell Count 6.6 10^3/uL (4.8-10.8)
[2024-04-03 05:29] LABS: ALT (SGPT) 13 U/L (0-50); AST (SGOT) 26 U/L (17-59); Albumin 2.9 g/dl (3.5-5.0); Alkaline Phosphatase 84 U/L (38-126); Blood Urea Nitrogen 10 mg/dl (9-20); Calcium 8.8 mg/dl (8.4-10.2); Carbon Dioxide 25 mmol/L (22-30); Chloride 103 mmol/L (98-107); Estimated Creatinine Clearance > 125 ml/min; Glucose 185 mg/dl (70-99); Potassium 4.3 mmol/L (3.5-5.1); Sodium 134 mmol/L (135-145); Total Bilirubin 0.9 mg/dl (0.2-1.3); eGFR > 60.00
[2024-04-03] MEDS: ADVAIR HFA 115/21 MCG INHALER 2 PUFF INH ×2 (07:15→20:32)
[2024-04-03 07:41] LABS: Glucose - Point of Care 204 mg/dl (70-99)
[2024-04-03] MEDS: NOVOLOG FLEXPEN-LOW RESISTANCE 2 UNITS SC (07:57)
[2024-04-03] MEDS: NOVOLOG FLEXPEN 3 UNITS SC (07:58)
[2024-04-03] MEDS: LOW STRENGTH ASPIRIN 81 MG PO (08:01)
[2024-04-03] MEDS: FOLVITE 1 MG PO (08:01)
[2024-04-03] MEDS: BUSPAR 10 MG PO (08:02)
[2024-04-03] MEDS: TOPROL XL 25 MG PO (08:02)
[2024-04-03] MEDS: SEROQUEL 200 MG PO (08:02)
[2024-04-03] MEDS: FLOMAX 0.400000000000000022 MG PO (08:03)
[2024-04-03] MEDS: THIAMINE INJECTION 200 MG IV ×3 (08:04→23:13)
[2024-04-03] MEDS: CRESTOR 40 MG PO (08:13)
--- NOTE | 2024-04-03 08:42 | W.PN.HOSP.TC ---
Today's Communication/Plan
-
see A/P
Assessment / Plan
Assessment / Plan
HPI: 68-year-old male, with past medical history of chronic alcoholism/alcohol abuse, diabetes mellitus, A-fib, PTSD/Bipolar disorder; presents with alcohol withdrawal.
Patient was dizzy and fell at home. His last alcohol drink was 2-3 days prior to admission. He drinks about 15 to 30 cans of beer each time.
He does not appear to be a good historian and has blunted affect.
He apparently fell onto his right side and complained of right jaw, rib pain, and lower back pain to the ED physician.
He denies to loss of consciousness or other symptoms.
A/P:
# Alcohol withdrawal in setting of alcohol use disorder/alcohol dependence
# Dizziness and mechanical fall due to above
Last drink was 2-3 days prior to admission
His CT head, Lumbar XR, rib XR were negative for fracture
UDS positive for tricyclic, alcohol level negative
Cont MSAS protocol with thiamine/Folic acid
CM to facilitate [facility] consult
PT OT eval
# Insulin-dependent diabetes
Continue decreased Lantus and adjust to 15 units HS (PIANO REGULATOR 20 units at bedtime)
Continue aspart, adjust to 5 units 3 times daily (PIANO REGULATOR 6 units 3 times daily)
Cover with ISS
Hold PIANO REGULATOR Metformin and Alogliptin
Carb control diet
# Essential HTN
continue Toprol XL with hold parameter
BP stable
# Parox A. Flutter/ Parox A. Fib
# hx of Ablation
not on AC due to noncompliance, fall risk in setting of ETOH
continue Toprol XL as above
# Mild Anemia, stable
# HLD - statin
# Hx of COPD
# HX of Tobacco Abuse
# Bipolar Disorder/PTSD
continue PIANO REGULATOR Buspar, Depakote, Seroquel
DVT ppx: Lovenox SQ
FC
Anticipated Discharge: 24 - 48 hours
Subjective/Interval History
-
Date of Service: April 03, 2024
Objective Data
-
Labs:
Laboratory Results
04/02/24 04/03/24
21:36 03:42
WBC 6.6
Hgb 11.0 L
Hct 30.8 L
Plt Count 198
Sodium 134 L
Potassium 4.3
Chloride 103
Carbon Dioxide 25
BUN 10
Creatinine 0.6 L
Glucose 214 H 185 H
Calcium 8.8
Total Bilirubin 0.9
AST 26
ALT 13
Alkaline Phosphatase 84
Vital Signs:
Vital Signs
Temp Pulse Resp BP Pulse Ox
36.9 C 83 19 120/63 93
04/03/24 07:15 04/03/24 08:02 04/03/24 08:00 04/03/24 08:02 04/03/24 08:15
I&O
04/02/24 04/03/24 04/04/24
06:59 06:59 06:59
Intake Total 1020 / 1020
Output Total 1780 / 1780
Balance -760 / -760
Review of Systems
-
All other systems: Reviewed and negative
Physical Exam
-
General: Well Developed, Well Nourished, No Apparent Distress, Comfortable, Conversant and Appears Chronically Ill
HEENT: Normocephalic and Atraumatic
Respiratory: Clear to Auscultation and Non Labored Respirations; Negative Accessory Resp Muscle Use
Cardiac: Regular Rhythm and S1/S2
GI: Soft
Neuro: Awake and Alert
Psych: Calm and Intact Judgement/Insight (somewhat)
Data Reviewed
-
Diagnostic Radiology: Report Reviewed by me
CT Scan: Report Reviewed by me
Labs: Labs Reviewed by me
--- NOTE | 2024-04-03 10:51 | CM ---
Addendum entered by Yennifer Alejandro RN 04/03/24 11:56:
Spoke with LATANYA Sow [facility] (ph [phone], fax [phone]);
the patient fell a few days ago. Maig went to his apartment on Fri to clean it up prior to his apartment inspection and his apartment was deplorable, with evidence of his urinating and defecating everywhere. When the patient drinks he takes off
his pants and pees and poops everywhere, and drinks until he blacks out.
DME - RW, rollator
The patient is current with [facility].
He is actively being followed by [facility].
Magi is working on trying to see if [employer] will cancel his eviction. Discussed that patient does not seem to be able to manage taking care of himself at home without repeatedly binge drinking and causing his apartment be in a deplorable
uninhabitable state. There is still feces on a chair in the apartment that he would not allow the SW to throw out, and his neighbors are complaining about the smell in the [place].
Magi would have to get permission from [facility] for SNF for rehab as well as chief crna placement. Advised Magi we need to proceed with SNF for rehab and do Level II Eval (due to loss of housing) - their 2 contracted SNFs are [facility] &
[place]. SNF referrals placed.
Magi requests clinicals to be sent to her by fax.
Plan fax clinical to [facility].
Plan submit Level II to [facility] once Psych Consult is completed.
Addendum entered by Yennifer Alejandro RN 04/03/24 11:20:
Spoke with FREN[facility] Young; patient kept repeating himself and seemed forgetful. He was focused on his issue of having no housing and also wanted to talk about his and son who were . The patient was disinterested in Etoh
resources/programs.
Plan follow up with [facility].
Plan probable SNF for rehab and LTC.
Addendum entered by Yennifer Alejandro RN 04/03/24 11:14:
Plan follow up with [facility].
Plan follow up with [facility].
Plan probable SNF for rehab and LTC.
Original Note:
Patient with Hx Bipolar Disorder/PTSD, alcoholism/alcohol abuse, with Dx alcohol withdrawal. Tox Screen- negative for Etoh. Room air. MSAS per nursing. PT & OT recommend skilled rehab.
Met with patient who resides alone at [facility], multi story building with elevator.
The patient relays that he was served an eviction notice a few days ago by Eliza at [facility] and he has about 28 days left to move out, or be taken to court. Asked why and he stated Eliza has inspected his apartment multiple times and she
claims there was feces on the floor. He admits to not cleaning the apartment but otherwise does not comment on the condition of the dwelling.
The patient has been independent in ADLs and ambulation using his RW.
He volunteers he felt unsteady on his feet today.
He receives a SS check but does not know the monthly allotment. He states he has $400 in his savings account. He states he has enough money for food and has been walking across the street from the building to buy food.
His only DME is the RW.
Patient states he is unsure if he is current with [facility].
No prior SNF.
[facility]- [facility], can't remember name
Pharmacy - [facility]
Patient has 2 sisters Shanta (celll [phone]) and Aletha (cell [phone]) who reside together in [place]. His and one son are both .
CM Consult: Substance Abuse
Patient states he did an inpatient Etoh program with [facility] in [place] about a month ago, followed by [facility] outpatient program. He states he has been drinking beer and goes through a 15 pack of beer 2x/week. He is receptive
to talking to FRENCH however is not interested in an Inpt program. Referral called in to FRENCH Young.
Phone call to [facility]; spoke with office machine inspector who stated all SWs are in a meeting. Left message for his SW Magi requesting callback about current services and re; d/c plans.
The patient is receptive to going to SNF for rehab and LTC. He is agreeable to a referral to [facility], [facility] and other local SNFs. SNF referrals placed.
Plan follow up with FRENCH.
Plan follow up with [facility].
Plan probable SNF for rehab and LTC.
[2024-04-03] MEDS: LIDOCAINE 4% PATCH 1 PATCH TOPICAL ×2 (11:35→14:02)
[2024-04-03 12:03] LABS: Glucose - Point of Care 344 mg/dl (70-99)
[2024-04-03] MEDS: NOVOLOG FLEXPEN 5 UNITS SC ×3 (12:13→22:22)
[2024-04-03] MEDS: NOVOLOG FLEXPEN-LOW RESISTANCE 4 UNITS SC (12:14)
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
[2024-04-03 14:26] LABS: Glycohemoglobin (HgbA1c) 7.3 % (4.0-5.6)
--- NOTE | 2024-04-03 15:04 | PTCARENOTE ---
Patient verbalizing sadness regarding family tragedies. Consulted rental sales associate for support. Therapeutic communication provided. Patient was out of bed to chair, ate majority of meals. Pain on lower back and right ribs treated with tylenol and lidocaine
patch with relief. MSAS less then 4 today.
[2024-04-03] MEDS: ATIVAN 1 MG PO ×3 (16:13→23:15)
[2024-04-03] MEDS: LOVENOX 40 MG SC (16:14)
--- NOTE | 2024-04-03 16:20 | PTCARENOTE ---
Patient is having tremors, mild sweating, anxiety. MSAS 6. Ativan 1mg administered as per protocol. Patient is verbalizing sadness that he was told he is being evicted. Discussed plan of care with patient and provided therapeutic communication.
[2024-04-03 16:32] LABS: Glucose - Point of Care 287 mg/dl (70-99)
[2024-04-03] MEDS: NOVOLOG FLEXPEN-LOW RESISTANCE 3 UNITS SC (18:02)
[2024-04-03 19:26] LABS: Hepatitis C Antibody Negative (Negative)
--- NOTE | 2024-04-03 20:12 | PTCARENOTE ---
Received pt from daysodrcas RN. Pt MSAS done per protocol (see worklist). VSS. Bed alarm in place. Pt is laying comfortable in bed with call paige in reach.
[2024-04-03] MEDS: LOTRIMIN 1% CREAM 1 APPLIC TOPICAL (20:32)
[2024-04-03] MEDS: SENOKOT 8.59999999999999964 MG PO (20:32)
[2024-04-03] MEDS: REMERON 30 MG PO (20:32)
[2024-04-03] MEDS: DEPAKOTE ER (24 HR RELEASE) 1000 MG PO (20:32)
[2024-04-03] MEDS: LANTUS 0.149999999999999994 UNITS SC (21:49)
[2024-04-03 22:01] LABS: Glucose - Point of Care 309 mg/dl (70-99)
[2024-04-03 23:55] LABS: Glucose - Point of Care 324 mg/dl (70-99)
[2024-04-04] VITALS (12 sets, daily range): BP systolic 102–133; BP diastolic 25–86
[2024-04-04] MEDS: NOVOLOG FLEXPEN 3 UNITS SC (00:10)
[2024-04-04 05:03] LABS: Hematocrit 31.7 % (39.0-52.0); Hemoglobin 11.4 g/dL (13.0-18.0); Mean Corpuscular Hgb 33.2 pg (27.0-31.0); Mean Corpuscular Volume 92.4 fL (80.0-94.0); Platelet Count 231 10^3/uL (130-400); Red Blood Cell Count 3.43 10^6/uL (4.70-6.10); Red Cell Dist. Width 14.6 % (11.5-14.5); White Blood Cell Count 6.1 10^3/uL (4.8-10.8)
[2024-04-04 05:16] LABS: Depakane 63.8 ug/ml (50.0-120.0)
[2024-04-04 05:26] LABS: ALT (SGPT) 12 U/L (0-50); AST (SGOT) 19 U/L (17-59); Alkaline Phosphatase 79 U/L (38-126); Blood Urea Nitrogen 9 mg/dl (9-20); Calcium 9.2 mg/dl (8.4-10.2); Carbon Dioxide 29 mmol/L (22-30); Chloride 99 mmol/L (98-107); Estimated Creatinine Clearance 116 ml/min; Glucose 171 mg/dl (70-99); Magnesium 1.8 mg/dl (1.6-2.3); Potassium 3.6 mmol/L (3.5-5.1); Sodium 135 mmol/L (135-145); Total Bilirubin 0.5 mg/dl (0.2-1.3); Total Protein 5.9 g/dl (6.3-8.2); eGFR > 60.00
[2024-04-04] MEDS: ADVAIR HFA 115/21 MCG INHALER 2 PUFF INH ×2 (07:49→21:08)
[2024-04-04] MEDS: ATIVAN 1 MG PO ×2 (08:02→23:22)
[2024-04-04] MEDS: CRESTOR 40 MG PO (08:02)
[2024-04-04] MEDS: TOPROL XL 25 MG PO (08:02)
[2024-04-04] MEDS: LOW STRENGTH ASPIRIN 81 MG PO (08:02)
[2024-04-04] MEDS: FOLVITE 1 MG PO (08:02)
[2024-04-04] MEDS: SEROQUEL 200 MG PO (08:03)
[2024-04-04] MEDS: LOTRIMIN 1% CREAM 1 APPLIC TOPICAL ×2 (08:03→20:03)
[2024-04-04] MEDS: FLOMAX 0.400000000000000022 MG PO (08:03)
[2024-04-04] MEDS: LIDOCAINE 4% PATCH 1 PATCH TOPICAL ×2 (08:04)
--- NOTE | 2024-04-04 08:06 | W.PN.HOSP.TC ---
Today's Communication/Plan
-
control DTs
apprec psych
will need placement--[facility] involved--needs Level II assessment
d/c planning
Assessment / Plan
Assessment / Plan
HPI: 68-year-old male, with past medical history of chronic alcoholism/alcohol abuse, diabetes mellitus, A-fib, PTSD/Bipolar disorder; presents with alcohol withdrawal.
Patient was dizzy and fell at home. His last alcohol drink was 2-3 days prior to admission. He drinks about 15 to 30 cans of beer each time. He does not appear to be a good historian and has blunted affect. He apparently fell onto his right side and
complained of right jaw, rib pain, and lower back pain to the ED physician. He denies to loss of consciousness or other symptoms.
Alcohol withdrawal in setting of alcohol use disorder/alcohol dependence with Dizziness and mechanical fall -- starting with rising MSAS scores, needing ativan, hallucinating (Last drink was 2-3 days prior to admission)--His CT head, Lumbar XR, rib
XR were negative for fracture--UDS positive for tricyclic, alcohol level negative--Cont MSAS protocol with thiamine/Folic acid--PT/OT
type 2 DM with Insulin-dependent diabetes--Continue decreased Lantus and adjust to 15 units HS (GAS DISTRIBUTION AND EMERGENCY CLERK 20 units at bedtime)--Continue aspart, adjust to 5 units 3 times daily (GAS DISTRIBUTION AND EMERGENCY CLERK 6 units 3 times daily)--Cover with ISS--Hold GAS DISTRIBUTION AND EMERGENCY CLERK Metformin and
Alogliptin--Carb control diet
Essential HTN--continue Toprol XL with hold parameter
Parox A. Flutter/ Parox A. Fib (hx of Ablation)--not on AC due to noncompliance, fall risk in setting of ETOH--continue Toprol XL as above
Mild Anemia, stable --likely of chronic disease
HLD - statin
Hx of COPD/HX of Tobacco Abuse-- no exacerbation
Bipolar Disorder/PTSD--continue GAS DISTRIBUTION AND EMERGENCY CLERK Buspar, Depakote, Seroquel--apprec psych
DVT ppx: Lovenox SQ
code status -- FULL CODE
Anticipated Discharge: > 48 hours
Subjective/Interval History
-
Date of Service: April 04, 2024
pt says he is hallucinating--nursing reports needing ativan for rising MSAS scores.....
Objective Data
-
Labs:
Laboratory Results
04/04/24
04:32
WBC 6.1
Hgb 11.4 L
Hct 31.7 L
Plt Count 231
Sodium 135
Potassium 3.6
Chloride 99
Carbon Dioxide 29
BUN 9
Creatinine 0.7
Glucose 171 H
Calcium 9.2
Total Bilirubin 0.5
AST 19
ALT 12
Alkaline Phosphatase 79
Vital Signs:
max temp for 24 hours
04/03/24
20:06
Temp 99.0 F
Vital Signs
Temp Pulse Resp BP Pulse Ox
98.7 F 80 16 106/25 97
04/04/24 03:28 04/04/24 07:50 04/04/24 07:50 04/04/24 04:01 04/04/24 07:50
I&O
04/03/24 04/04/24 04/05/24
06:59 06:59 06:59
Intake Total 1020 / 1020 960 / 960
Output Total 1780 / 1780 1850 / 1850
Balance -760 / -760 -890 / -890
Review of Systems
-
History Source: Patient
All other systems: Reviewed and negative
Physical Exam
-
General: Appears Chronically Ill
HEENT: Normocephalic and Atraumatic
Respiratory: Clear to Auscultation; Negative Wheezes or Rhonchi
Cardiac: Regular Rhythm and S1/S2; Negative Murmur or Tachycardic
GI: Soft, Nontender, Nondistended and Normal Bowel Sounds
Musculoskeletal: No Clubbing, No Cyanosis and No Edema
Skin: Warm
Neuro: Awake and Tremors
Psych: Calm
[2024-04-04] MEDS: SENOKOT-S 1 TABLET PO (08:18)
[2024-04-04 08:19] LABS: Glucose - Point of Care 192 mg/dl (70-99)
[2024-04-04] MEDS: NOVOLOG FLEXPEN 8 UNITS SC ×3 (08:30→17:33)
[2024-04-04] MEDS: NOVOLOG FLEXPEN-LOW RESISTANCE 1 UNITS SC ×2 (08:31→12:59)
[2024-04-04] MEDS: LASIX 20 MG PO (08:36)
[2024-04-04] MEDS: THIAMINE INJECTION 200 MG IV ×3 (08:36→23:22)
[2024-04-04] MEDS: NOVOLOG FLEXPEN SC (08:45)
[2024-04-04 11:56] LABS: Glucose - Point of Care 195 mg/dl (70-99)
--- NOTE | 2024-04-04 12:04 | CM ---
Patient with Hx Bipolar Disorder/PTSD, alcoholism/alcohol abuse, with Dx alcohol withdrawal.
Met with patient who signed Level II Assessment Forms for SNF.
Case discussed with Dr Roman who agrees with SNF for rehab and LTC- MD signed Level II paperwork.
Met with PIPPA Che, [facility] (ph [phone], fax [phone]); she received a report of concern from [facility] and was here to meet with the patient. Agreed to send clinical to her fax -sent via [facility].
Spoke with Catrachita Reyes; faxed 40 pages for Level II Assessment.
Phone calls x2 to LATANYA Sow [facility] (ph [phone], fax [phone]); she left message saying her phone was not working and requested callback to her preferred ph that doesn't have voicemail [phone]- attempted x2 to reach her with no
success.
Phone call to February, [facility]iana Serrano; left message requesting c/b to discuss referral.
Spoke with Maggie Hinson - [facility]; patient was discussed in their corporate call this morning, he was denied both financially and medically. Informed her rehab would be under insurance and LTC under [facility], so financial denial is unclear.
Phone call to Mariana Combs; left messages requesting c/c to discuss referral.
Plan continued SNF placement efforts for rehab and LTC.
Plan continued efforts to reach [facility] for more SNF options.
Plan SNF after Level II Clearance obtained and accepting SNF facility found.
--- NOTE | 2024-04-04 14:46 | W.PN.UPDATE ---
Update Note
Progress Note Update
patient seen chart reviewed. patient appears in no distress. he has only received one ativan today and appears to be comfortable. tried to impress upon him the effect of etoh abuse on his life and that of those around him in [facility]. he is
unhappy that he is being evicted. i tried to explain to him why....his place was not sanitary and it was affecting others in the facility. this further supports the need for sobriety. tried to explore with him what are the triggers. it seems to me
that he is very lonely and isolated. a fdc care type of placement might be a boon for him as there will be others to talk to activities to participate in etc. one might also consider etoh rehab. for now no changes made in his medication .
continue as currently
[2024-04-04] MEDS: TYLENOL 650 MG PO ×2 (15:22→20:25)
[2024-04-04 17:27] LABS: Glucose - Point of Care 263 mg/dl (70-99)
[2024-04-04] MEDS: NOVOLOG FLEXPEN-LOW RESISTANCE 3 UNITS SC (17:34)
[2024-04-04] MEDS: LOVENOX 40 MG SC (17:36)
[2024-04-04] MEDS: DEPAKOTE ER (24 HR RELEASE) 1000 MG PO (21:39)
[2024-04-04] MEDS: REMERON 30 MG PO (21:39)
[2024-04-04] MEDS: LANTUS 0.200000000000000011 UNITS SC (21:39)
[2024-04-04 21:40] LABS: Glucose - Point of Care 287 mg/dl (70-99)
[2024-04-04] MEDS: SENOKOT PO (23:15)
[2024-04-05] VITALS (10 sets, daily range): BP systolic 104–134; BP diastolic 62–82; BMI 24.5
[2024-04-05] MEDS: MELATONIN 3 MG PO (01:48)
--- NOTE | 2024-04-05 02:32 | PTCARENOTE ---
Addendum entered by Magda Branch RN 04/05/24 04:30:
on reassessment Pt appears to be sleeping comfortably, respirations even and unlabored. Vitals stable at this time.
Original Note:
Pt MSAS going to 5, see MAR. Pt ringing repeatedly about not being able to sleep. Different therapeutic intervention attempted, non successful. Night CHAINSTITCH TUNNEL ELASTIC OPERATOR made aware, melatonin given. Assessment care and vitals as charted.
[2024-04-05 05:22] LABS: Glucose - Point of Care 233 mg/dl (70-99)
[2024-04-05 05:34] LABS: Hematocrit 32.1 % (39.0-52.0); Hemoglobin 11.6 g/dL (13.0-18.0); Mean Corp Hgb Conc. 36.1 g/dL (33.0-37.0); Mean Corpuscular Hgb 33.5 pg (27.0-31.0); Mean Corpuscular Volume 92.8 fL (80.0-94.0); Mean Platelet Volume 9.9 fL (7.4-10.4); Platelet Count 230 10^3/uL (130-400); Red Blood Cell Count 3.46 10^6/uL (4.70-6.10); Red Cell Dist. Width 14.5 % (11.5-14.5)
[2024-04-05 06:01] LABS: ALT (SGPT) 12 U/L (0-50); AST (SGOT) 19 U/L (17-59); Alkaline Phosphatase 69 U/L (38-126); Blood Urea Nitrogen 10 mg/dl (9-20); Calcium 9.4 mg/dl (8.4-10.2); Carbon Dioxide 28 mmol/L (22-30); Chloride 99 mmol/L (98-107); Estimated Creatinine Clearance 116 ml/min; Glucose 217 mg/dl (70-99); Magnesium 1.8 mg/dl (1.6-2.3); Potassium 3.9 mmol/L (3.5-5.1); Sodium 135 mmol/L (135-145); Total Bilirubin 0.5 mg/dl (0.2-1.3); eGFR > 60.00
--- NOTE | 2024-04-05 07:37 | W.PN.HOSP.TC ---
Today's Communication/Plan
-
d/c planning
hopefully will have place Sunday
transfer to tele
Assessment / Plan
Assessment / Plan
pt is a 68 year old male
Alcohol withdrawal in setting of alcohol use disorder/alcohol dependence with Dizziness and mechanical fall --improving DTs, MSAS scores improved--His CT head, Lumbar XR, rib XR were negative for fracture--UDS positive for tricyclic, alcohol level
negative--Cont MSAS protocol with thiamine/Folic acid--PT/OT
type 2 DM with Insulin-dependent diabetes--Continue decreased Lantus and adjust to 15 units HS (CARGO MATE 20 units at bedtime)--Continue aspart, adjust to 5 units 3 times daily (CARGO MATE 6 units 3 times daily)--Cover with ISS--Hold CARGO MATE Metformin and
Alogliptin--Carb control diet
Essential HTN--continue Toprol XL with hold parameter
Parox A. Flutter/ Parox A. Fib (hx of Ablation)--not on AC due to noncompliance, fall risk in setting of ETOH--continue Toprol XL as above
Mild Anemia, stable --likely of chronic disease
HLD - statin
Hx of COPD/HX of Tobacco Abuse-- no exacerbation
Bipolar Disorder/PTSD--continue CARGO MATE Buspar, Depakote, Seroquel--apprec psych
DVT ppx: Lovenox SQ
code status -- FULL CODE
transfer to tele
likely will be ready Sunday if continues to improve
Anticipated Discharge: 24 - 48 hours
Subjective/Interval History
-
Date of Service: April 05, 2024
pt without c/o
Objective Data
-
Labs:
Laboratory Results
04/05/24
05:12
WBC 6.0
Hgb 11.6 L
Hct 32.1 L
Plt Count 230
Sodium 135
Potassium 3.9
Chloride 99
Carbon Dioxide 28
BUN 10
Creatinine 0.7
Glucose 217 H
Calcium 9.4
Total Bilirubin 0.5
AST 19
ALT 12
Alkaline Phosphatase 69
Vital Signs:
max temp for 24 hours
04/05/24
05:26
Temp 98.5 F
Vital Signs
Temp Pulse Resp BP Pulse Ox
98.5 F 78 15 131/65 96
04/05/24 05:26 04/05/24 06:00 04/05/24 06:00 04/05/24 06:00 04/05/24 06:00
I&O
04/04/24 04/05/24 04/06/24
06:59 06:59 06:59
Intake Total 960 / 960 860 / 860
Output Total 1850 / 1850 800 / 800
Balance -890 / -890 60 / 60
Review of Systems
-
All other systems: Reviewed and negative
Physical Exam
-
General: Well Developed, Well Nourished and No Apparent Distress
HEENT: Normocephalic and Atraumatic
Respiratory: Clear to Auscultation; Negative Wheezes or Rhonchi
Cardiac: Regular Rhythm and S1/S2; Negative Murmur
GI: Soft, Nontender, Nondistended and Normal Bowel Sounds
Musculoskeletal: No Clubbing, No Cyanosis and No Edema
Neuro: Awake
Psych: Calm
[2024-04-05] MEDS: ADVAIR HFA 115/21 MCG INHALER 2 PUFF INH ×2 (07:41→19:55)
[2024-04-05 08:45] LABS: Glucose - Point of Care 185 mg/dl (70-99)
[2024-04-05] MEDS: NOVOLOG FLEXPEN-LOW RESISTANCE 1 UNITS SC (09:44)
[2024-04-05] MEDS: NOVOLOG FLEXPEN 8 UNITS SC ×3 (09:45→17:35)
[2024-04-05] MEDS: TOPROL XL 25 MG PO (09:46)
[2024-04-05] MEDS: CRESTOR 40 MG PO (09:46)
[2024-04-05] MEDS: THIAMINE INJECTION 200 MG IV (09:46)
[2024-04-05] MEDS: LOW STRENGTH ASPIRIN 81 MG PO (09:46)
[2024-04-05] MEDS: FLOMAX 0.400000000000000022 MG PO (09:47)
[2024-04-05] MEDS: LIDOCAINE 4% PATCH 1 PATCH TOPICAL ×2 (09:47→09:48)
[2024-04-05] MEDS: FOLVITE 1 MG PO (09:47)
[2024-04-05] MEDS: SEROQUEL 200 MG PO (09:47)
[2024-04-05] MEDS: LOTRIMIN 1% CREAM 1 APPLIC TOPICAL ×2 (09:48→22:10)
--- NOTE | 2024-04-05 10:10 | W.PN.UPDATE ---
Update Note
Progress Note Update
Patient reports he is worried about where he will live as he was evicted from [facility] [place] [facility] ; apparently his apartment was unkempt at it posed hazard to others. He seems to accept need for remaining sober; reports he has support from his sisters and
has some interests particularly word finding exercise books.
Denies depression, hopelessness or suicidal thoughts.
Would continue current psychotropic meds, will order Depakote level.
[2024-04-05 12:41] LABS: Glucose - Point of Care 250 mg/dl (70-99)
[2024-04-05 12:48] LABS: Depakane 52.5 ug/ml (50.0-120.0)
[2024-04-05] MEDS: NOVOLOG FLEXPEN-LOW RESISTANCE 3 UNITS SC ×2 (14:46→17:35)
[2024-04-05 17:35] LABS: Glucose - Point of Care 285 mg/dl (70-99)
[2024-04-05] MEDS: LOVENOX 40 MG SC (17:35)
[2024-04-05] MEDS: SENOKOT PO (21:53)
[2024-04-05] MEDS: VITAMIN B1 100 MG PO (21:53)
[2024-04-05 22:01] LABS: Glucose - Point of Care 221 mg/dl (70-99)
[2024-04-05] MEDS: LANTUS 0.200000000000000011 UNITS SC (22:01)
[2024-04-05] MEDS: DEPAKOTE ER (24 HR RELEASE) 1000 MG PO (22:02)
[2024-04-05] MEDS: REMERON 30 MG PO (22:10)
[2024-04-06 03:21] VITALS: BP 149/67
[2024-04-06 07:00] VITALS: BP 123/70
[2024-04-06 07:12] LABS: Hematocrit 32.1 % (39.0-52.0); Hemoglobin 11.2 g/dL (13.0-18.0); Mean Corp Hgb Conc. 34.9 g/dL (33.0-37.0); Mean Corpuscular Hgb 32.9 pg (27.0-31.0); Mean Corpuscular Volume 94.4 fL (80.0-94.0); Mean Platelet Volume 9.9 fL (7.4-10.4); Platelet Count 216 10^3/uL (130-400); Red Cell Dist. Width 14.4 % (11.5-14.5); White Blood Cell Count 6.3 10^3/uL (4.8-10.8)
[2024-04-06 07:36] LABS: ALT (SGPT) 14 U/L (0-50); AST (SGOT) 23 U/L (17-59); Alkaline Phosphatase 67 U/L (38-126); Blood Urea Nitrogen 14 mg/dl (9-20); Calcium 9.6 mg/dl (8.4-10.2); Carbon Dioxide 26 mmol/L (22-30); Chloride 102 mmol/L (98-107); Estimated Creatinine Clearance > 125 ml/min; Glucose 190 mg/dl (70-99); Sodium 135 mmol/L (135-145); Total Bilirubin 0.5 mg/dl (0.2-1.3); Total Protein 5.9 g/dl (6.3-8.2); eGFR > 60.00
[2024-04-06] MEDS: ADVAIR HFA 115/21 MCG INHALER 2 PUFF INH ×2 (07:47→20:18)
[2024-04-06] MEDS: VITAMIN B1 100 MG PO ×2 (07:50→19:58)
[2024-04-06] MEDS: CRESTOR 40 MG PO (07:51)
[2024-04-06] MEDS: FLOMAX 0.400000000000000022 MG PO (07:51)
[2024-04-06] MEDS: LIDOCAINE 4% PATCH 1 PATCH TOPICAL ×2 (07:51)
[2024-04-06] MEDS: LOW STRENGTH ASPIRIN 81 MG PO (07:51)
[2024-04-06] MEDS: FOLVITE 1 MG PO (07:52)
[2024-04-06] MEDS: TOPROL XL 25 MG PO (07:52)
[2024-04-06 07:59] LABS: Glucose - Point of Care 211 mg/dl (70-99)
[2024-04-06] MEDS: SEROQUEL 200 MG PO (08:01)
[2024-04-06] MEDS: LOTRIMIN 1% CREAM 1 APPLIC TOPICAL ×2 (08:01→19:58)
[2024-04-06] MEDS: NOVOLOG FLEXPEN-LOW RESISTANCE 2 UNITS SC ×3 (08:02→18:44)
[2024-04-06] MEDS: NOVOLOG FLEXPEN 8 UNITS SC ×3 (08:02→18:43)
[2024-04-06 08:06] LABS: TSH Reflex To Free T4 1.37 uIU/ml (0.47-4.68)
--- NOTE | 2024-04-06 10:16 | W.PN.HOSP.TC ---
Today's Communication/Plan
-
stable for d/c when SNF obtained
Assessment / Plan
Assessment / Plan
pt is a 68 year old male
Alcohol withdrawal in setting of alcohol use disorder/alcohol dependence with Dizziness and mechanical fall --resolved-- MSAS scores improved--His CT head, Lumbar XR, rib XR were negative for fracture--UDS positive for tricyclic, alcohol level
negative--Cont MSAS protocol with thiamine/Folic acid--PT/OT
type 2 DM with Insulin-dependent diabetes--Continue decreased Lantus and adjust to 15 units HS (AIRCRAFT PAINTER 20 units at bedtime)--Continue aspart, adjust to 5 units 3 times daily (AIRCRAFT PAINTER 6 units 3 times daily)--Cover with ISS--Hold AIRCRAFT PAINTER Metformin and
Alogliptin--Carb control diet
Essential HTN--continue Toprol XL with hold parameter
Parox A. Flutter/ Parox A. Fib (hx of Ablation)--not on AC due to noncompliance, fall risk in setting of ETOH--continue Toprol XL as above
Mild Anemia, stable --likely of chronic disease
HLD - statin
Hx of COPD/HX of Tobacco Abuse-- no exacerbation
Bipolar Disorder/PTSD--continue AIRCRAFT PAINTER Buspar, Depakote, Seroquel--apprec psych
DVT ppx: Lovenox SQ
code status -- FULL CODE
ready for d/c Sunday
Anticipated Discharge: 24 - 48 hours
Subjective/Interval History
-
Date of Service: April 06, 2024
pt without c/o
Objective Data
-
Labs:
Laboratory Results
04/06/24
06:47
WBC 6.3
Hgb 11.2 L
Hct 32.1 L
Plt Count 216
Sodium 135
Potassium 4.0
Chloride 102
Carbon Dioxide 26
BUN 14
Creatinine 0.6 L
Glucose 190 H
Calcium 9.6
Total Bilirubin 0.5
AST 23
ALT 14
Alkaline Phosphatase 67
Vital Signs:
max temp for 24 hours
04/06/24
07:00
Temp 98.7 F
Vital Signs
Temp Pulse Resp BP Pulse Ox
98.7 F 78 16 123/70 97
04/06/24 07:00 04/06/24 07:45 04/06/24 07:45 04/06/24 07:00 04/06/24 07:45
I&O
04/05/24 04/06/24 04/07/24
06:59 06:59 06:59
Intake Total 860 / 860 660 / 660
Output Total 800 / 800 300 / 300
Balance 60 / 60 360 / 360
Review of Systems
-
All other systems: Reviewed and negative
Physical Exam
-
General: Well Developed, Well Nourished and No Apparent Distress
HEENT: Normocephalic and Atraumatic
Respiratory: Clear to Auscultation; Negative Wheezes or Rhonchi
Cardiac: Regular Rhythm and S1/S2; Negative Murmur
GI: Soft, Nontender, Nondistended and Normal Bowel Sounds
Musculoskeletal: No Clubbing, No Cyanosis and No Edema
Psych: Calm
[2024-04-06 11:00] VITALS: BP 107/58
[2024-04-06 12:19] LABS: Glucose - Point of Care 221 mg/dl (70-99)
--- NOTE | 2024-04-06 12:25 | W.PN.UPDATE ---
Update Note
Progress Note Update
Patient is doing reasonably well, no acute problems, denies dysphoria, anhedonia, hopelessness or suicidal thoughts. Obviously still anxious as to where he will go but cognisant as to why he was evicted. Recognizes need to maintain sobriety and
states will participate in rehab program.
Depakote level is WNR.
Continue current psychopharmacological management.
[2024-04-06] MEDS: ATIVAN 0.5 MG PO ×2 (13:44→19:59)
[2024-04-06 15:00] VITALS: BP 103/66
[2024-04-06 16:08] LABS: Glucose - Point of Care 245 mg/dl (70-99)
[2024-04-06] MEDS: LOVENOX 40 MG SC (18:45)
[2024-04-06 19:00] VITALS: BP 106/62
[2024-04-06 21:40] LABS: Glucose - Point of Care 238 mg/dl (70-99)
[2024-04-06] MEDS: DEPAKOTE ER (24 HR RELEASE) 1000 MG PO (22:07)
[2024-04-06] MEDS: SENOKOT 8.59999999999999964 MG PO (22:07)
[2024-04-06] MEDS: LANTUS 0.200000000000000011 UNITS SC (22:07)
[2024-04-06] MEDS: REMERON 30 MG PO (22:07)
[2024-04-06 23:00] VITALS: BP 122/68
[2024-04-07] VITALS (7 sets, daily range): BP systolic 98–136; BP diastolic 64–75; PULSE 86; O2SAT 98
[2024-04-07] MEDS: ATIVAN 0.5 MG PO ×3 (00:42→17:10)
[2024-04-07 05:51] LABS: Hematocrit 30.9 % (39.0-52.0); Hemoglobin 10.9 g/dL (13.0-18.0); Mean Corp Hgb Conc. 35.3 g/dL (33.0-37.0); Mean Corpuscular Hgb 33.3 pg (27.0-31.0); Mean Corpuscular Volume 94.5 fL (80.0-94.0); Mean Platelet Volume 9.5 fL (7.4-10.4); Platelet Count 192 10^3/uL (130-400); Red Blood Cell Count 3.27 10^6/uL (4.70-6.10); Red Cell Dist. Width 14.4 % (11.5-14.5); White Blood Cell Count 6.3 10^3/uL (4.8-10.8)
[2024-04-07 06:24] LABS: ALT (SGPT) 15 U/L (0-50); AST (SGOT) 21 U/L (17-59); Albumin 2.8 g/dl (3.5-5.0); Alkaline Phosphatase 67 U/L (38-126); Blood Urea Nitrogen 14 mg/dl (9-20); Calcium 9.1 mg/dl (8.4-10.2); Carbon Dioxide 29 mmol/L (22-30); Chloride 101 mmol/L (98-107); Estimated Creatinine Clearance > 125 ml/min; Glucose 144 mg/dl (70-99); Magnesium 1.9 mg/dl (1.6-2.3); Sodium 135 mmol/L (135-145); Total Bilirubin 0.4 mg/dl (0.2-1.3); Total Protein 5.7 g/dl (6.3-8.2); eGFR > 60.00
[2024-04-07] MEDS: ADVAIR HFA 115/21 MCG INHALER 2 PUFF INH ×2 (08:00→20:27)
[2024-04-07 08:07] LABS: Glucose - Point of Care 151 mg/dl (70-99)
[2024-04-07] MEDS: SEROQUEL 200 MG PO (08:45)
[2024-04-07] MEDS: VITAMIN B1 100 MG PO ×2 (08:45→20:19)
[2024-04-07] MEDS: CRESTOR 40 MG PO (08:45)
[2024-04-07] MEDS: FOLVITE 1 MG PO (08:45)
[2024-04-07] MEDS: TOPROL XL 25 MG PO (08:45)
[2024-04-07] MEDS: FLOMAX 0.400000000000000022 MG PO (08:45)
[2024-04-07] MEDS: LIDOCAINE 4% PATCH 1 PATCH TOPICAL ×2 (08:46)
[2024-04-07] MEDS: LOTRIMIN 1% CREAM 1 APPLIC TOPICAL ×2 (08:46→20:20)
[2024-04-07] MEDS: LOW STRENGTH ASPIRIN 81 MG PO (08:46)
[2024-04-07] MEDS: LASIX 20 MG PO (08:48)
[2024-04-07] MEDS: NOVOLOG FLEXPEN 8 UNITS SC ×3 (10:13→18:23)
--- NOTE | 2024-04-07 10:13 | W.PN.HOSP.TC ---
Addendum entered and electronically signed by Julia Moura MD 04/07/24 10:56:
Informed by RN that pt started to have gross hematuria.
Hgb today at 10.9 from 11.2 yesterday.
Pt endorsed to recent prostate surgery ?1 month ago at ?[facility]. Will request record.
Start bladder scan
Cont to monitor hematuria
Original Note:
Today's Communication/Plan
-
see A/P
Assessment / Plan
Assessment / Plan
pt is a 68 year old male
Alcohol withdrawal in setting of alcohol use disorder/alcohol dependence with Dizziness and mechanical fall, resolved
MSAS scores improved
His CT head, Lumbar XR, rib XR were negative for fracture
UDS positive for tricyclic, alcohol level negative
Cont MSAS protocol with thiamine/Folic acid
Dispo to SNF per CM
type 2 DM with Insulin-dependent diabetes
Continue ASSISTANT SUPERINTENDENT Lantus at 20 units at bedtime, Continue aspart, adjusted to 8 units 3 times daily
Cover with ISS
Hold ASSISTANT SUPERINTENDENT Metformin and Alogliptin
Carb control diet
Essential HTN--continue Toprol XL with hold parameter
Parox A. Flutter/ Parox A. Fib (hx of Ablation)--not on AC due to noncompliance, fall risk in setting of ETOH
continue Toprol XL as above
Mild Anemia, stable --likely of chronic disease
HLD - statin
Hx of COPD/HX of Tobacco Abuse-- no exacerbation
Bipolar Disorder/PTSD--continue ASSISTANT SUPERINTENDENT Buspar, Depakote, Seroquel--apprec psych
DVT ppx: Lovenox SQ
code status -- FULL CODE
Dispo: ready for d/c to SNF when bed ready
Anticipated Discharge: Within 24 hours
Subjective/Interval History
-
Date of Service: April 07, 2024
Objective Data
-
Labs:
Laboratory Results
04/07/24
05:31
WBC 6.3
Hgb 10.9 L
Hct 30.9 L
Plt Count 192
Sodium 135
Potassium 4.0
Chloride 101
Carbon Dioxide 29
BUN 14
Creatinine 0.6 L
Glucose 144 H
Calcium 9.1
Total Bilirubin 0.4
AST 21
ALT 15
Alkaline Phosphatase 67
Vital Signs:
Vital Signs
Temp Pulse Resp BP Pulse Ox
36.8 C 70 16 136/75 97
04/07/24 07:00 04/07/24 08:02 04/07/24 08:02 04/07/24 07:00 04/07/24 08:02
I&O
04/06/24 04/07/24 04/08/24
06:59 06:59 06:59
Intake Total 660 / 660 2280 / 2280
Output Total 300 / 300 1100 / 1100
Balance 360 / 360 1180 / 1180
Review of Systems
-
All other systems: Reviewed and negative
Physical Exam
-
General: Well Developed, Well Nourished, No Apparent Distress, Comfortable and Conversant; Negative Respiratory Distress
HEENT: Normocephalic and Atraumatic
Respiratory: Clear to Auscultation and Non Labored Respirations; Negative Accessory Resp Muscle Use
Cardiac: Regular Rhythm and S1/S2; Negative Murmur
GI: Soft, Nontender, Nondistended and Normal Bowel Sounds
Musculoskeletal: No Clubbing, No Cyanosis and No Edema
Psych: Calm
Data Reviewed
-
Labs: Labs Reviewed by me
[2024-04-07] MEDS: NOVOLOG FLEXPEN-LOW RESISTANCE 1 UNITS SC ×2 (10:14→18:25)
[2024-04-07 12:45] LABS: Glucose - Point of Care 208 mg/dl (70-99)
[2024-04-07] MEDS: NOVOLOG FLEXPEN-LOW RESISTANCE 2 UNITS SC (13:25)
--- NOTE | 2024-04-07 16:29 | CM ---
Level 2 assessment done with pt Sunday. Awaiting level 2 determination.( 2-3 days)
LM with [facility] [phone].
LM with Angella Rush at [facility] to check on housing status .Directed to sap project manager Eliza [place] [phone].
PLAN Need Level s determination then locate SNF that takes [facility]
--- NOTE | 2024-04-07 16:44 | W.PN.UPDATE ---
Update Note
Progress Note Update
Pt seen resting in bed in no apparent distress. Alert, making eye contact, calm, cooperative. No acute complaints; agreeable with SNF. Last received Ativan on MSAS 04/04. Receiving some doses of prn Ativan 0.5 mg. Pt taking medications, with no
apparent side effects. Remeron tapered to 30 mg HS, Seroquel decreased to 200 mg QD. VPA level decreased to 52.5 on 04/05 (still in low acceptable range), possibly due to apparent change to ER Depakote.
Imp: Alcohol use, unspec
Hx of Bipolar d/o. Appears stable on current psychotropic meds
Rec: continue current psychotropic medications, change Seroquel dose to HS
will continue to follow
[2024-04-07 16:45] LABS: Glucose - Point of Care 174 mg/dl (70-99)
[2024-04-07] MEDS: LOVENOX 40 MG SC (17:10)
[2024-04-07] MEDS: SENOKOT 8.59999999999999964 MG PO (21:11)
[2024-04-07] MEDS: REMERON 30 MG PO (21:11)
[2024-04-07] MEDS: DEPAKOTE ER (24 HR RELEASE) 1000 MG PO (21:11)
[2024-04-07] MEDS: LANTUS 0.200000000000000011 UNITS SC (21:11)
[2024-04-07 21:17] LABS: Glucose - Point of Care 298 mg/dl (70-99)
[2024-04-08 03:00] VITALS: BP 131/72
[2024-04-08 07:00] VITALS: BP 125/70
[2024-04-08] MEDS: ADVAIR HFA 115/21 MCG INHALER 2 PUFF INH ×2 (08:09→18:11)
[2024-04-08 08:24] LABS: Glucose - Point of Care 195 mg/dl (70-99)
[2024-04-08] MEDS: LOW STRENGTH ASPIRIN 81 MG PO (08:47)
[2024-04-08] MEDS: FOLVITE 1 MG PO (08:47)
[2024-04-08] MEDS: CRESTOR 40 MG PO (08:47)
[2024-04-08] MEDS: TOPROL XL 25 MG PO (08:47)
[2024-04-08] MEDS: VITAMIN B1 100 MG PO ×2 (08:47→21:17)
[2024-04-08] MEDS: FLOMAX 0.400000000000000022 MG PO (08:47)
[2024-04-08] MEDS: LIDOCAINE 4% PATCH 1 PATCH TOPICAL ×2 (08:48)
[2024-04-08] MEDS: LOTRIMIN 1% CREAM 1 APPLIC TOPICAL ×2 (08:48→21:16)
[2024-04-08] MEDS: NOVOLOG FLEXPEN-LOW RESISTANCE 2 UNITS SC ×3 (08:53→17:36)
[2024-04-08] MEDS: NOVOLOG FLEXPEN 8 UNITS SC ×3 (08:53→17:36)
[2024-04-08 08:55] LABS: Hematocrit 31.9 % (39.0-52.0); Hemoglobin 10.8 g/dL (13.0-18.0); Mean Corp Hgb Conc. 33.9 g/dL (33.0-37.0); Mean Corpuscular Hgb 32.5 pg (27.0-31.0); Mean Corpuscular Volume 96.1 fL (80.0-94.0); Mean Platelet Volume 9.7 fL (7.4-10.4); Platelet Count 190 10^3/uL (130-400); Red Blood Cell Count 3.32 10^6/uL (4.70-6.10); Red Cell Dist. Width 14.5 % (11.5-14.5); White Blood Cell Count 6.2 10^3/uL (4.8-10.8)
[2024-04-08 09:25] LABS: Blood Urea Nitrogen 15 mg/dl (9-20); Calcium 9.3 mg/dl (8.4-10.2); Carbon Dioxide 27 mmol/L (22-30); Chloride 101 mmol/L (98-107); Estimated Creatinine Clearance 116 ml/min; Glucose 157 mg/dl (70-99); Potassium 4.3 mmol/L (3.5-5.1); Sodium 134 mmol/L (135-145); eGFR > 60.00
[2024-04-08 10:11] LABS: Urine Albumin Trace (Neg - Trace); Urine Bilirubin Negative (Negative); Urine Character Slightly Cloudy (Clear); Urine Color Amber; Urine Glucose 1+ (Negative); Urine Ketone 1+ (Negative); Urine Leukocyte 1+ (Negative); Urine Nitrite Negative (Negative); Urine Occult Blood 4+ (Negative); Urine Urobilinogen 1+ (Neg - 1+)
[2024-04-08 10:23] LABS: Urine Red Blood Cell >100 /HPF (0-2)
[2024-04-08 11:00] VITALS: BP 117/64
--- NOTE | 2024-04-08 11:34 | CM ---
Addendum entered by Margoth Tinsley 04/08/24 15:03:
Received call from Eliza at [facility]
Per Eliza pt failed his housekeeping inspection. He will be receiving a 30 day notice of eviction.
Addendum entered by Margoth Tinsley 04/08/24 13:41:
Received call from Radha at [facility] - documents received
Carlie from [facility] will come to hospital today at 3:30PM to complete assessment
[facility] - can not accept
[facility] - called and LM - waiting on return call
Plan - SNF/NH when facility obtained
Original Note:
Case management following for d/c planning
Received call from Radha from [facility] - requesting modifications to PASSR and MA 51
Forms updated and faxed to [facility]
--- NOTE | 2024-04-08 11:40 | W.PN.HOSP.TC ---
Today's Communication/Plan
-
renal US
await records
monitor hematuria
DC planning
Assessment / Plan
Assessment / Plan
Assessment:
Alcohol withdrawal in setting of alcohol use disorder/alcohol dependence with Dizziness and mechanical fall, resolved
- MSAS scores improved
- His CT head, Lumbar XR, rib XR were negative for fracture
- UDS positive for tricyclic, alcohol level negative
- Cont MSAS protocol with thiamine/Folic acid
- PT/OT - awaiting SNF placement
type 2 DM with Insulin-dependent diabetes
- continue ENTRY LEVEL MANAGER Lantus at 20 units at bedtime, Continue aspart, adjusted to 8 units 3 times daily
- cover with ISS
- hold ENTRY LEVEL MANAGER Metformin and Alogliptin
- Carb control diet
Essential HTN
- continue Toprol XL with hold parameter
Parox A. Flutter/ Parox A. Fib (hx of Ablation)--not on AC due to noncompliance, fall risk in setting of ETOH
- continue Toprol XL as above
Mild Anemia, stable - likely of chronic disease
HLD - statin
Hx of COPD/HX of Tobacco Abuse-- no exacerbation
Bipolar Disorder/PTSD--continue ENTRY LEVEL MANAGER Buspar, Depakote, Seroquel--apprec psych
Gross Hematuria
Recent prostate surgery [place]
- records requested
- urine culture pending, no leukocytosis or fevers, watch off Abx
- Bladder US
- monitor clinically, he states improvement
DVT ppx: SCDs (off Lovenox due to hematuria)
code status -- FULL CODE
Dispo: SNF when medically cleared
Anticipated Discharge: 24 - 48 hours
Subjective/Interval History
-
Date of Service: April 08, 2024
gross hematuria, he reports its resolved now
he does not recall details of recent procedure at [place]
Objective Data
-
Labs:
Laboratory Results
04/08/24
08:24
WBC 6.2
Hgb 10.8 L
Hct 31.9 L
Plt Count 190
Sodium 134 L
Potassium 4.3
Chloride 101
Carbon Dioxide 27
BUN 15
Creatinine 0.7
Glucose 157 H
Calcium 9.3
Vital Signs:
Vital Signs
Temp Pulse Resp BP Pulse Ox
98.9 F 76 18 117/64 96
04/08/24 11:00 04/08/24 11:00 04/08/24 11:00 04/08/24 11:00 04/08/24 11:00
I&O
04/07/24 04/08/24 04/09/24
06:59 06:59 06:59
Intake Total 2280 / 2280 720 / 720
Output Total 1100 / 1100 675 / 675
Balance 1180 / 1180 45 / 45
Physical Exam
-
General: No Apparent Distress
HEENT: Normocephalic and Atraumatic
Respiratory: Negative Wheezes
Cardiac: Regular Rhythm and S1/S2
GI: Soft
Genito-urinary: No Costovertebral Tender
Musculoskeletal: No Edema
Neuro: AO x 3
Psych: Calm
Data Reviewed
-
Total Time Spent with Patient (in minutes): 41
Labs: Labs Reviewed by me
[2024-04-08 11:58] LABS: Glucose - Point of Care 217 mg/dl (70-99)
[2024-04-08 15:00] VITALS: BP 117/62
[2024-04-08 16:47] LABS: Glucose - Point of Care 212 mg/dl (70-99)
[2024-04-08 19:10] VITALS: BP 113/63
[2024-04-08] MEDS: SENOKOT 8.59999999999999964 MG PO (21:16)
[2024-04-08] MEDS: SEROQUEL 200 MG PO (21:16)
[2024-04-08 21:17] LABS: Glucose - Point of Care 234 mg/dl (70-99)
[2024-04-08] MEDS: REMERON 30 MG PO (21:17)
[2024-04-08] MEDS: LANTUS 0.200000000000000011 UNITS SC (21:20)
[2024-04-08] MEDS: DEPAKOTE ER (24 HR RELEASE) 1000 MG PO (21:20)
[2024-04-08 23:33] VITALS: BP 125/69
[2024-04-09] MEDS: TYLENOL 650 MG PO ×2 (00:05→20:09)
[2024-04-09 03:15] VITALS: BP 116/68
[2024-04-09 05:40] LABS: Hematocrit 30.7 % (39.0-52.0); Hemoglobin 10.7 g/dL (13.0-18.0); Mean Corp Hgb Conc. 34.9 g/dL (33.0-37.0); Mean Corpuscular Volume 94.8 fL (80.0-94.0); Mean Platelet Volume 9.3 fL (7.4-10.4); Platelet Count 183 10^3/uL (130-400); Red Blood Cell Count 3.24 10^6/uL (4.70-6.10); Red Cell Dist. Width 14.4 % (11.5-14.5); White Blood Cell Count 5.3 10^3/uL (4.8-10.8)
[2024-04-09 06:17] LABS: Blood Urea Nitrogen 16 mg/dl (9-20); Calcium 9.2 mg/dl (8.4-10.2); Carbon Dioxide 23 mmol/L (22-30); Chloride 104 mmol/L (98-107); Estimated Creatinine Clearance > 125 ml/min; Glucose 162 mg/dl (70-99); Sodium 136 mmol/L (135-145); eGFR > 60.00
[2024-04-09 07:00] VITALS: BP 113/57
[2024-04-09 08:11] LABS: Glucose - Point of Care 164 mg/dl (70-99)
[2024-04-09] MEDS: ADVAIR HFA 115/21 MCG INHALER 2 PUFF INH ×2 (08:48→21:09)
[2024-04-09] MEDS: VITAMIN B1 100 MG PO ×2 (08:54→20:05)
[2024-04-09] MEDS: TOPROL XL 25 MG PO (08:54)
[2024-04-09] MEDS: CRESTOR 40 MG PO (08:54)
[2024-04-09] MEDS: LOW STRENGTH ASPIRIN 81 MG PO (08:55)
[2024-04-09] MEDS: FOLVITE 1 MG PO (08:55)
[2024-04-09] MEDS: LIDOCAINE 4% PATCH 1 PATCH TOPICAL ×2 (08:56)
[2024-04-09] MEDS: NOVOLOG FLEXPEN 8 UNITS SC ×3 (08:56→17:29)
[2024-04-09] MEDS: FLOMAX 0.400000000000000022 MG PO (08:56)
[2024-04-09] MEDS: NOVOLOG FLEXPEN-LOW RESISTANCE 1 UNITS SC (08:57)
[2024-04-09] MEDS: LASIX 20 MG PO (08:59)
[2024-04-09] MEDS: LOTRIMIN 1% CREAM 1 APPLIC TOPICAL ×2 (09:02→20:05)
--- NOTE | 2024-04-09 09:24 | CM ---
Addendum entered by Margoth Tinsley 04/09/24 13:14:
Spoke with sister Yanira [phone]
Updated regarding discharge planning - looking at SNF/NH
Concerned about pts belongings at [facility] - reports will call Magi at [facility]
Requested medical update - TT sent to Dr Govea requesting he update sister
Plan - SNF when accepted at facility
Addendum entered by Margoth Tinsley 04/09/24 12:52:
Spoke with Mariana at [facility]- can accept at either facility
[facility] interested. Out of network but would consider as a one time contract
Received determination - denied
CM spoke with Magi at [facility] (p [phone], fax [phone])
Updated with accepting facilities and determination
She will up date her supervisor insecticide and return call
Addendum entered by Margoth Tinsley 04/09/24 09:42:
Spoke with Carlie at [facility] - level 2 was sent for review. Waiting on determination
Spoke with Magi at [facility]. Notified level 2 assessment completed - waiting on determination
Made aware - [facility] denied acceptance; [facility] - waiting on determination - have called and LM's. She will each out to [facility]
Will send additional referrals in Care Port for determination
Original Note:
Case management following for d/c planning
Called [facility] admissions [phone] - LM on VM - checking on bed availability/acceptance
Received call from Carlie [phone] at [facility] - requesting call back - returned call - LM
--- NOTE | 2024-04-09 11:14 | W.PN.UPDATE ---
Update Note
Progress Note Update
patient seen chart reviewed spoke with nursing and with dr soto. the patient remains here due to hematuria which could be related to recent prostate surgery. he is doing pretty well psychiatrically. he is accepting that he has been evicted and
will have to move on to new disposition. he has not been requiring any ativan and the msas might be discontinued. no changes made in psych meds. he does feel they are helping him. no ill effects noted.
--- NOTE | 2024-04-09 11:44 | W.PN.HOSP.TC ---
Today's Communication/Plan
-
monitor hematuria clinically
await placement
Assessment / Plan
Assessment / Plan
Assessment:
Alcohol withdrawal in setting of alcohol use disorder/alcohol dependence with Dizziness and mechanical fall, resolved
- MSAS scores improved
- His CT head, Lumbar XR, rib XR were negative for fracture
- UDS positive for tricyclic, alcohol level negative
- Cont MSAS protocol with thiamine/Folic acid; DC ativan orders
- PT/OT - awaiting SNF placement
type 2 DM with Insulin-dependent diabetes
- continue PLUMBING WAREHOUSE HELPER Lantus at 20 units at bedtime, Continue aspart, adjusted to 8 units 3 times daily
- cover with ISS
- hold PLUMBING WAREHOUSE HELPER Metformin and Alogliptin
- Carb control diet
Essential HTN
- continue Toprol XL with hold parameter
Parox A. Flutter/ Parox A. Fib (hx of Ablation)--not on AC due to noncompliance, fall risk in setting of ETOH
- continue Toprol XL as above
Mild Anemia, stable - likely of chronic disease
HLD - statin
Hx of COPD/HX of Tobacco Abuse-- no exacerbation
Bipolar Disorder/PTSD--continue PLUMBING WAREHOUSE HELPER Buspar, Depakote, Seroquel--apprec psych
Gross Hematuria
Recent prostate surgery [place]
- records requested x 2 but nothing received
- Ucx negative
- Renal/Bladder US unremarkable
- monitor clinically
DVT ppx: SCDs (off Lovenox due to hematuria)
code status -- FULL CODE
Dispo: SNF when medically cleared
Anticipated Discharge: Within 24 hours
Subjective/Interval History
-
Date of Service: April 09, 2024
hematuria resolving per patient/RN, not fresh blood like 48 hours ago
Hb stable
Renal US neg
Objective Data
-
Labs:
Laboratory Results
04/09/24
05:20
WBC 5.3
Hgb 10.7 L
Hct 30.7 L
Plt Count 183
Sodium 136
Potassium 4.0
Chloride 104
Carbon Dioxide 23
BUN 16
Creatinine 0.6 L
Glucose 162 H
Calcium 9.2
Vital Signs:
Vital Signs
Temp Pulse Resp BP Pulse Ox
98.3 F 68 20 116/57 98
04/09/24 07:00 04/09/24 08:54 04/09/24 08:51 04/09/24 08:54 04/09/24 08:51
I&O
04/08/24 04/09/24 04/10/24
06:59 06:59 06:59
Intake Total 720 / 720 1380 / 1380
Output Total 675 / 675 1575 / 1575
Balance 45 / 45 -195 / -195
Physical Exam
-
General: No Apparent Distress
HEENT: Normocephalic and Atraumatic
Respiratory: Negative Wheezes
Cardiac: Regular Rhythm and S1/S2
GI: Soft and Nontender
Genito-urinary: No Costovertebral Tender
Neuro: AO x 3
Hematologic / Lymphatic: No Lymphadenopathy
Psych: Calm
Data Reviewed
-
Total Time Spent with Patient (in minutes): 42
Labs: Labs Reviewed by me
[2024-04-09 12:09] LABS: Glucose - Point of Care 218 mg/dl (70-99)
[2024-04-09] MEDS: NOVOLOG FLEXPEN-LOW RESISTANCE 2 UNITS SC (12:31)
[2024-04-09 12:45] VITALS: BP 132/73; PULSE 80; O2SAT 98
[2024-04-09 15:00] VITALS: BP 104/64
[2024-04-09 17:10] LABS: Glucose - Point of Care 255 mg/dl (70-99)
[2024-04-09] MEDS: NOVOLOG FLEXPEN-LOW RESISTANCE 3 UNITS SC (17:30)
[2024-04-09 21:15] LABS: Glucose - Point of Care 253 mg/dl (70-99)
[2024-04-09] MEDS: DEPAKOTE ER (24 HR RELEASE) 1000 MG PO (21:27)
[2024-04-09] MEDS: LANTUS 0.200000000000000011 UNITS SC (21:27)
[2024-04-09] MEDS: SEROQUEL 200 MG PO (21:27)
[2024-04-09] MEDS: REMERON 30 MG PO (21:27)
[2024-04-09] MEDS: SENOKOT 8.59999999999999964 MG PO (21:27)
[2024-04-09 23:35] VITALS: BP 109/62
--- NOTE | 2024-04-10 03:13 | PTCARENOTE ---
Pt. forgetful at times. Pt. rang call paige around midnight requesting his HS medications. This RN reminded patient that he already took his scheduled HS medications. Pt. recalled after being reminded. Pt. pleasant and cooperative with care. Plan of
care ongoing.
[2024-04-10 05:47] LABS: Hematocrit 30.8 % (39.0-52.0); Hemoglobin 10.8 g/dL (13.0-18.0); Mean Corp Hgb Conc. 35.1 g/dL (33.0-37.0); Mean Corpuscular Hgb 33.4 pg (27.0-31.0); Mean Corpuscular Volume 95.4 fL (80.0-94.0); Mean Platelet Volume 9.8 fL (7.4-10.4); Platelet Count 200 10^3/uL (130-400); Red Blood Cell Count 3.23 10^6/uL (4.70-6.10); Red Cell Dist. Width 14.5 % (11.5-14.5); White Blood Cell Count 6.1 10^3/uL (4.8-10.8)
[2024-04-10 07:30] VITALS: BP 138/62
[2024-04-10] MEDS: ADVAIR HFA 115/21 MCG INHALER 2 PUFF INH ×2 (08:09→20:13)
[2024-04-10] MEDS: LOW STRENGTH ASPIRIN 81 MG PO (09:04)
[2024-04-10] MEDS: FLOMAX 0.400000000000000022 MG PO (09:04)
[2024-04-10] MEDS: CRESTOR 40 MG PO (09:04)
[2024-04-10] MEDS: VITAMIN B1 100 MG PO ×2 (09:04→21:05)
[2024-04-10] MEDS: FOLVITE 1 MG PO (09:05)
[2024-04-10] MEDS: TOPROL XL 25 MG PO (09:05)
[2024-04-10] MEDS: LIDOCAINE 4% PATCH 1 PATCH TOPICAL ×3 (09:05→09:06)
[2024-04-10 09:06] LABS: Glucose - Point of Care 168 mg/dl (70-99)
[2024-04-10] MEDS: LOTRIMIN 1% CREAM 1 APPLIC TOPICAL ×2 (09:07→21:06)
[2024-04-10] MEDS: NOVOLOG FLEXPEN-LOW RESISTANCE 1 UNITS SC ×2 (09:14→13:39)
[2024-04-10] MEDS: NOVOLOG FLEXPEN 8 UNITS SC ×3 (09:14→16:23)
--- NOTE | 2024-04-10 11:14 | W.PN.UPDATE ---
Update Note
Progress Note Update
patient seen chart reviewed. mr jade remains very pleasant as hematuria is being addressed. 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 he is a very gentle kindly person when he is well. agree with snf and
an alternative placement when he is medically cleared. it is my impression he would do well with some supervision and the social interaction a nh placement might enable. no changes made in his medication . no apparent side effects and he seems to
be benefitting.
--- NOTE | 2024-04-10 11:26 | CM ---
Addendum entered by Margoth Tinsley 04/11/24 16:25:
Called [facility] to get update for pt on contract - LM on VM
Addendum entered by Margoth Tinsley 04/10/24 16:00:
Spoke with Magi at [facility]
Report she spoke with pt - he is in agreement with plan for SNF/LTC. She has reached out to [facility] waiting to hear back
[facility] to assist with pt obtaining personal belongings at [facility]
Aware pt is medically ready
Plan - anticipate transfer to [facility] when auth/agreement obtained by [facility]
Addendum entered by Margoth Tinsley 04/10/24 13:44:
Received call from Magi - gogo to call and speak with pt to discuss options
SNF determination will be made after discussing with pt
Magi to return call with determination
Original Note:
Case management following for d/c planning
Called Magi at [facility] [phone] to request updates
requesting call back
Plan - anticipate SNF(TBD) when medically ready - waiting on determination from [facility]
[2024-04-10 12:08] LABS: Glucose - Point of Care 192 mg/dl (70-99)
[2024-04-10] MEDS: TYLENOL 650 MG PO (12:35)
--- NOTE | 2024-04-10 14:24 | W.PN.HOSP.TC ---
Today's Communication/Plan
-
medically stable for DC pending SNF
Assessment / Plan
Assessment / Plan
Assessment:
Alcohol withdrawal in setting of alcohol use disorder/alcohol dependence with Dizziness and mechanical fall, resolved
- MSAS scores improved
- His CT head, Lumbar XR, rib XR were negative for fracture
- UDS positive for tricyclic, alcohol level negative
- Cont MSAS protocol with thiamine/Folic acid; DC Ativan orders
- PT/OT - awaiting SNF placement
type 2 DM with Insulin-dependent diabetes
- continue MEDICARE SPECIALIST Lantus at 20 units at bedtime, Continue aspart, adjusted to 8 units 3 times daily
- cover with ISS
- hold MEDICARE SPECIALIST Metformin and Alogliptin
- Carb control diet
Essential HTN
- continue Toprol XL with hold parameter
Parox A. Flutter/ Parox A. Fib (hx of Ablation)--not on AC due to noncompliance, fall risk in setting of ETOH
- continue Toprol XL as above
Mild Anemia, stable - likely of chronic disease
HLD - statin
Hx of COPD/HX of Tobacco Abuse-- no exacerbation
Bipolar Disorder/PTSD--continue MEDICARE SPECIALIST Buspar, Depakote, Seroquel--apprec psych
Gross Hematuria, intermittent
Recent prostate surgery [place]
- records requested x 2 but nothing received
- Ucx negative
- Renal/Bladder US unremarkable
- monitor clinically; Hb is stable
- OP Urology follow up
DVT ppx: SCDs (off Lovenox due to hematuria)
code status -- FULL CODE
Dispo: SNF when medically cleared
Anticipated Discharge: 24 - 48 hours
Subjective/Interval History
-
Date of Service: April 10, 2024
intermittent hematuria at times but overall less so
Objective Data
-
Labs:
Laboratory Results
04/10/24
05:23
WBC 6.1
Hgb 10.8 L
Hct 30.8 L
Plt Count 200
Vital Signs:
Vital Signs
Temp Pulse Resp BP Pulse Ox
97.5 F 72 18 138/62 97
04/10/24 07:30 04/10/24 08:11 04/10/24 08:11 04/10/24 07:30 04/10/24 08:11
I&O
04/09/24 04/10/24 04/11/24
06:59 06:59 06:59
Intake Total 1380 / 1380 480 / 480
Output Total 1575 / 1575 400 / 400
Balance -195 / -195 80 / 80
Physical Exam
-
General: No Apparent Distress
HEENT: Normocephalic and Atraumatic
Respiratory: Negative Wheezes
Cardiac: Regular Rhythm and S1/S2
GI: Soft
Musculoskeletal: No Edema
Neuro: AO x 3
Hematologic / Lymphatic: No Lymphadenopathy
Psych: Calm
Data Reviewed
-
Total Time Spent with Patient (in minutes): 41
Labs: Labs Reviewed by me
[2024-04-10 15:37] VITALS: BP 110/58
[2024-04-10 16:01] LABS: Glucose - Point of Care 324 mg/dl (70-99)
[2024-04-10] MEDS: NOVOLOG FLEXPEN-LOW RESISTANCE 4 UNITS SC (16:23)
[2024-04-10 16:36] LABS: Glucose - Point of Care 376 mg/dl (70-99)
[2024-04-10] MEDS: DEPAKOTE ER (24 HR RELEASE) 1000 MG PO (21:04)
[2024-04-10] MEDS: SEROQUEL 200 MG PO (21:04)
[2024-04-10] MEDS: SENOKOT 8.59999999999999964 MG PO (21:06)
[2024-04-10] MEDS: REMERON 30 MG PO (21:06)
[2024-04-10 22:08] LABS: Glucose - Point of Care 188 mg/dl (70-99)
[2024-04-10] MEDS: LANTUS 0.200000000000000011 UNITS SC (22:15)
[2024-04-10 23:42] VITALS: BP 107/64
[2024-04-11] MEDS: ATIVAN 0.5 MG PO (00:07)
[2024-04-11 07:30] VITALS: BP 115/67
[2024-04-11 08:02] LABS: Glucose - Point of Care 162 mg/dl (70-99)
[2024-04-11] MEDS: VITAMIN B1 100 MG PO (08:28)
[2024-04-11] MEDS: CRESTOR 40 MG PO (08:28)
[2024-04-11] MEDS: TOPROL XL 25 MG PO (08:28)
[2024-04-11] MEDS: FOLVITE 1 MG PO (08:29)
[2024-04-11] MEDS: FLOMAX 0.400000000000000022 MG PO (08:29)
[2024-04-11] MEDS: LOW STRENGTH ASPIRIN 81 MG PO (08:29)
[2024-04-11] MEDS: LIDOCAINE 4% PATCH TOPICAL (08:30)
[2024-04-11] MEDS: LASIX 20 MG PO (08:33)
[2024-04-11] MEDS: ADVAIR HFA 115/21 MCG INHALER 2 PUFF INH (08:36)
--- NOTE | 2024-04-11 09:37 | CM ---
Addendum entered by PIPPA Gustafson 04/11/24 17:26:
called sister Shanta. SHe is pleased with plan and spoke to Magi earlier today. She will call Magi to see if they can bring clothes for patient until someone can get in his apt at [facility] to get him clothing.
Addendum entered by PIPPA Gustafson 04/11/24 17:16:
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 See below for report and fax.
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
CM notified patient's nurse Armond of plan.
Addendum entered by Margoth Tinsley 04/11/24 15:17:
Per Mali at [facility] will be covering the weekend. If approved by insurance call her at [phone]
Report # [phone] - [facility] nurses station

Addendum entered by Margoth Tinsley 04/11/24 15:08:
Spoke with Magi at [facility] - will call [facility] regarding one time contract
Will return call with update regarding contract
Plan - [facility] when contract obtained through insurance
Addendum entered by Margoth Tinsley 04/11/24 13:48:
Spoke with Mali from [facility] - she met with pts. Updates sent in Care Port
Called and left message for Magi at [facility] with update
Original Note:
Received call from Magi from [facility]
Have been in contact with [facility] - traffic workforce representative to evaluate pt before acceptance. Planning to come to hospital this afternoon to see pt
Spoke Mali from [facility] - will see pt today. Plans to come to hospital today at 11AM
[2024-04-11] MEDS: NOVOLOG FLEXPEN 8 UNITS SC ×3 (09:52→16:05)
[2024-04-11] MEDS: NOVOLOG FLEXPEN-LOW RESISTANCE 1 UNITS SC (09:52)
[2024-04-11] MEDS: LOTRIMIN 1% CREAM 1 APPLIC TOPICAL (10:01)
--- NOTE | 2024-04-11 11:26 | W.PN.UPDATE ---
Update Note
Progress Note Update
patient seen chart reviewed. 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 minus alcohol he is very affable. we continue to talk about how different his life would be with sobriety. he told me about the members of his family who are doctors cpa's
dentists. it is my impression that he feels quite negatively about himself. he mentioned the loss of his and son today irreplaceable losses. he is okay w snf . i am hoping that a placement in a place where there are some opportuntities re
socialization would be a + for him. he is very receptive to any interest shown in him. no changes made in medications which seem to help and there is no c/o side effects.
--- NOTE | 2024-04-11 11:43 | W.PN.HOSP.TC ---
Today's Communication/Plan
-
medically stable for DC pending SNF
Assessment / Plan
Assessment / Plan
Assessment:
Alcohol withdrawal in setting of alcohol use disorder/alcohol dependence with Dizziness and mechanical fall, resolved
- MSAS scores improved.
- His CT head, Lumbar XR, rib XR were negative for fracture.
- UDS positive for tricyclic, alcohol level negative.
- Cont MSAS protocol with thiamine/Folic acid; DC Ativan orders.
- PT/OT - awaiting SNF placement.
type 2 DM with Insulin-dependent diabetes
- continue PUPIL PERSONNEL SERVICES DIRECTOR Lantus at 20 units at bedtime, Continue aspart, adjusted to 8 units 3 times daily
- cover with ISS
- hold PUPIL PERSONNEL SERVICES DIRECTOR Metformin and Alogliptin
- Carb control diet
Essential HTN
- continue Toprol XL with hold parameter
Parox A. Flutter/ Parox A. Fib (hx of Ablation)--not on AC due to noncompliance, fall risk in setting of ETOH
- continue Toprol XL as above
Mild Anemia, stable - likely of chronic disease
HLD - statin
Hx of COPD/HX of Tobacco Abuse-- no exacerbation
Bipolar Disorder/PTSD--continue PUPIL PERSONNEL SERVICES DIRECTOR Buspar, Depakote, Seroquel--apprec psych
Gross Hematuria, intermittent
Recent prostate surgery [place]
- records requested x 2 but nothing received
- Ucx negative
- Renal/Bladder US unremarkable
- monitor clinically; Hb is stable
- OP Urology follow up
DVT ppx: SCDs (off Lovenox due to hematuria)
code status -- FULL CODE
Dispo: SNF when medically cleared
Anticipated Discharge: Within 24 hours
Subjective/Interval History
-
Date of Service: April 11, 2024
denies any new complaints
Objective Data
-
Vital Signs:
Vital Signs
Temp Pulse Resp BP Pulse Ox
97.6 F 60 16 115/67 97
04/11/24 07:30 04/11/24 08:42 04/11/24 08:42 04/11/24 07:30 04/11/24 08:42
I&O
04/10/24 04/11/24 04/12/24
06:59 06:59 06:59
Intake Total 480 / 480 720 / 720 480 / 480
Output Total 400 / 400 700 / 700 1100 / 1100
Balance 80 / 80 20 / 20 -620 / -620
Physical Exam
-
General: No Apparent Distress
HEENT: Normocephalic and Atraumatic
Respiratory: Negative Wheezes
Cardiac: Regular Rhythm and S1/S2
GI: Soft
Musculoskeletal: No Edema
Neuro: AO x 3
Psych: Calm
Data Reviewed
-
Total Time Spent with Patient (in minutes): 41
Labs: Labs Reviewed by me
[2024-04-11 13:15] LABS: Glucose - Point of Care 284 mg/dl (70-99)
[2024-04-11] MEDS: NOVOLOG FLEXPEN-LOW RESISTANCE 3 UNITS SC (13:22)
[2024-04-11 16:00] VITALS: BP 108/62
[2024-04-11 16:02] LABS: Glucose - Point of Care 200 mg/dl (70-99)
[2024-04-11] MEDS: NOVOLOG FLEXPEN-LOW RESISTANCE 2 UNITS SC (16:05)
[2024-04-11 16:13] VITALS: BP 99/64; PULSE 82; O2SAT 96
--- NOTE | 2024-04-12 14:37 | W.DS.TRANS ---
DC Summary - Screen Printer
-
Discharge Instructions:
Discharge Diagnosis/Procedures Alcohol withdrawal, type 2 diabetes with insulin
use, essential hypertension, paroxysmal atrial
flutter/fib, anemia of chronic disease,
hyperlipidemia, chronic obstructive pulmonary
disease with tobacco use, bipolar disorder with
posttraumatic stress disorder
Diet Diabetic, Carb Controlled,As tolerated
Activity As tolerated
Driving Restrictions No driving
Bathing Restrictions None
Instructions:
Stand-Alone Forms:
Changes to Home Medications: No
Discharge Medications:
DC Medications w/original date entered in [facility]
furosemide 20 mg tablet 20 mg PO MOWEFR Fluid retention/Swelling 03/26/23
aspirin 81 mg chewable tablet 81 mg PO DAILY Blood clot prevention/tx 03/27/23
divalproex 500 mg tablet,extended release 24 hr 1,000 mg PO HS Mental Health/Anxiety 03/27/23
thiamine HCl (vitamin B1) 100 mg tablet (Vitamin B-1) 100 mg PO DAILY Supplement 03/27/23
metoprolol succinate 25 mg tablet,extended release 24 hr 25 mg PO DAILY 30 days #30 tabs 03/29/23
cholecalciferol (vitamin D3) 50 mcg (2,000 unit) tablet (Vitamin D3) 1,250 mcg PO Q2W Supplement 12/23/23
rosuvastatin 40 mg tablet 40 mg PO DAILY High Cholesterol 12/23/23
albuterol sulfate 90 mcg/actuation aerosol inhaler 2 puff inhalation Q4HPRN PRN sob 12/24/23
fluticasone propionate 115 mcg-salmeterol 21 mcg/actuation HFA inhaler (Advair HFA) 2 puff inhalation BID Lung/Breathing Issues 12/24/23
folic acid 800 mcg tablet 0.8 mg PO DAILY Supplement 12/24/23
sennosides 8.6 mg tablet (senna) 8.6 mg PO HS Constipation 12/24/23
tamsulosin 0.4 mg capsule (Flomax) 0.4 mg PO DAILY prostate 12/24/23
alogliptin 6.25 mg tablet 6.25 mg PO DAILY Diabetes 02/24/24
metformin 1,000 mg tablet,extended release 24hr (osmotic) 1,000 mg PO BID Diabetes 02/24/24
diphenhydramine HCl 50 mg capsule 50 mg PO DAILY PRN 1hr prior to cat scan 04/02/24
insulin aspart U-100 100 unit/mL subcutaneous solution (Novolog U-100 Insulin aspart) 6 unit SC AC Diabetes 04/03/24
insulin glargine-yfgn 100 unit/mL (3 mL) subcutaneous pen 20 unit SC HS Diabetes 04/03/24
melatonin 3 mg tablet 3 mg PO HS PRN sleep 04/03/24
dextrose 1 gram chewable tablet 2 g PO ONCE low blood sugar 04/07/24
glucagon HCl 1 mg solution for injection (Glucagon (HCl) Emergency Kit) 1 mg SC Q20M PRN low blood sugar 04/07/24
mirtazapine 30 mg tablet 30 mg PO HS #30 tabs 04/11/24
quetiapine 100 mg tablet 200 mg (2 x 100 mg) PO HS #30 tabs 04/11/24
Home Medication Changes
Pending Results: No
Total time spent discharging patient (in min): 41
== END 2024-04-11 18:49 | DRG 897 ==
LOC: 3 WEST ACU 15:21
PROVIDERS: Emergency Medicine; Internal Medicine; Psychiatry & Neurology Psychiatry; ADMITTING PHYSICIAN Internal Medicine; ATTENDING PHYSICIAN Internal Medicine; CONSULT PHYSICIAN Psychiatry & Neurology Psychiatry; EMERGENCY PHYSICIAN Emergency Medicine
DX: F10.239 Alcohol dependence with withdrawal, unspecified (principal); I48.92 Unspecified atrial flutter; E11.9 Type 2 diabetes mellitus without complications; I48.0 Paroxysmal atrial fibrillation; F43.10 Post-traumatic stress disorder, unspecified; F31.9 Bipolar disorder, unspecified; I10 Essential (primary) hypertension; D63.8 Anemia in other chronic diseases classified elsewhere; E78.5 Hyperlipidemia, unspecified; J44.9 Chronic obstructive pulmonary disease, unspecified; R31.0 Gross hematuria; K21.9 Gastro-esophageal reflux disease without esophagitis; Z79.4 Long term (current) use of insulin; M19.90 Unspecified osteoarthritis, unspecified site; Z79.899 Other long term (current) drug therapy; Z87.891 Personal history of nicotine dependence; Z91.148 Patient's other noncompliance with medication regimen for other reason; Z91.81 History of falling
CPT/HCPCS: 70450; 70486; 71101; 72110; 72125; 76770; 80048; 80053; 80164; 80306; 81003; 81015; 82077; 82947; 82962; 83036; 83735; 84443; 85025; 85027; 86803; 87086; 93005; 94640; 96361; 96374; 97116; 97163; 97167; 97530; 97535; 99285

== ENCOUNTER 2025-01-05 16:21 | Inpatient (IN) | payer MEDICARE, SELFPAY ==
[2025-01-05 13:33] VITALS: BP 136/58; BMI 31.9
[2025-01-05 14:06] VITALS: BP 146/96
[2025-01-05] MEDS: NSS 2300 ML IV (14:21)
--- NOTE | 2025-01-05 14:24 | ED.GENMED ---
History of Present Illness
General
Chief Complaint: Urinary Symptoms
Source: patient
Time Seen by Provider: 01/05/25 14:14
History of Present Illness
History of Present Illness:
69-year-old male presents emergency department after developing rigors and chills just after lunchtime today associated with excessive thirst. He says he felt perfectly well all day yesterday and when he awoke this morning. He denies nausea,
vomiting, chest pain, abdominal pain, back or flank pain, headache, dizziness, dyspnea. He does note an intermittent cough. He is noted to have frequency and urgency today as well but he denies pain with urination.
Past History
Past History
ED Past Medical History: Arrthythmia, COPD, GERD (Gastritis), HTN, IDDM, Seizures, Psychiatric (bipolar disorder, panic disorder, suicide attempt, Depression) and Other (Anxiety, alcohol abuse, bipolar disorder, arthritis, lumbar disc disease)
ED Past Surgical History: Other (partial gastrectomy 3/4 stomach removed after drinking bleach, hernia repair)
Social History
Tobacco: Former smoker
Alcohol: Chronic alcoholic
Drug: None
Personal:
Living: alone
Employment: Disabled
Family History
Family History: Other (non contributory)
Phy Exam
Physical Exam
Physical Exam:
GENERAL: Alert , in no apparent distress
EYE: pupils equal and reactive, no photophobia
NECK: Supple, no significant adenopathy.
ENT: o/p clr, mm slightly dry
CARDIAC: Regular rate and rhythm .
LUNGS: Equal but decreased breath sounds bilaterally, no acute respiratory distress, no wheezes/rales/rhonchi
ABDOMEN: Soft, without focal tenderness, no r/g, no cvat
NEUROLOGICAL: Alert and oriented to person place month but not year, no focal neuro deficits
SKIN: Warm and dry, skin intact.
MUSCULOSKELETAL: No edema, well perfused.
PSYCH: Normal and appropriate interaction.
: no swelling/redness/drdainage
Sepsis
Sepsis Screening
Sepsis Assessment: Sepsis
Sepsis Screen
Sepsis Screen: Sepsis
Date: 01/06/25
Time: 08:56
Course
Orders/Labs/Results
Orders:
Orders
01/05/25 13:34
Electrocardiogram (*1) Urgent
Reason for Study: Other
Other Reason for Exam: Possible Sepsis
Cardiac Monitoring- Treatment ONCE
IV Insert/Care/Rem.- Treatment PRN
CR Chest - 2 Views Urgent
Comment:
Reason For Exam: suspected infection
01/05/25 13:35
EKG- Treatment ONCE
01/05/25 13:56
COVID-19 Antigen Urgent
Source: Nasal Swab
Complete Blood Count/With Diff Urgent
Comprehensive Metabolic Panel Urgent
Lactic Acid Q4H
Comment: ON ICE, CANCEL 2ND ORDER IF FIRST LACTIC ACID LEVEL <2
Urinalysis Reflex To Culture Urgent
Date Specimen was Collected: 01/05/25
Time Specimen was Collected: 13:35
Urine Microscopic Reflex Cult Urgent
Blood Culture Urgent
ISHA Source: Blood/Venous
Specimen Description:
Influenza A+B Rapid Molecular Urgent
ISHA Source: Nasal Swab
Specimen Description:
Urine Culture Urgent
ISHA Source: U
Specimen Description:
Date Specimen was Collected: 01/05/25
Time Specimen was Collected: 13:35
01/05/25 14:16
0.9% Sodium Chloride 1000 ml [Nss] 2,300 ml IV NOW STA
Acetaminophen [Tylenol] 1,000 mg PO NOW STA
01/05/25 Dinner
1800 calorie (15 carb) Diabetic
At Your Request: Limited Participation
01/05/25 15:01
Blood Culture Urgent
ISHA Source: Blood/Venous
Specimen Description:
01/05/25 15:05
Ketorolac [Toradol] 15 mg .ROUTE .STK-MED ONE
Ketorolac [Toradol] 15 mg IV NOW STA
01/05/25 15:26
Aztreonam [Azactam] 2,000 mg IV NOW STA
01/05/25 15:55
Admit/Transfer Patient As Directed
Co-Sign Provider:
Level of Care: Inpatient admission
Assign to:: Medical/Surgical
Physician / Group: Adam Govea
Diagnosis: urosepsis
Reason for Hospitalization: urosepsis
Expected length of stay greater than two midnights?: Yes
ELOS- Estimated Length of Stay in days: 3
I certify the patient meets the requirements for IP care: Yes
01/05/25 15:56
PRN Pain Medication Management As Directed
May give lesser potent ordered pain med per pt: Yes
preference::
Protocol:: Medication orders for pain may be administered in a
manner that supports deferring to patient preference
when the pt is:
- Requesting an ordered lesser potent pain medication.
Least to most potent pain medications are defined
as: acetaminophen < NSAID < tramadol < opioids
(morphine, oxycodone, hydromorphone).
- Requesting a lesser dose of the same medication IF
ORDERED.
- Requesting a less intrusive route of administration
if both routes are prescribed by the provider (PO <
IV).
01/05/25 15:58
Code Status As Directed
Resuscitation Status: Full Code
01/05/25 16:06
Sterile Water [Sterile Water For Injection] 10 ml .ROUTE .STK-MED ONE
01/05/25 19:49
0.9% Sodium Chloride 1000 ml [Nss] 1,000 ml IV 80 mls/hr
Acetaminophen [Tylenol] 650 mg PO Q4HPRN PRN
Dextrose 50%-Water [Dextrose 50% Syringe] 12.5 grams IV [id number] PRN
Enoxaparin Sodium [Lovenox] 40 mg SC QPM
Glucagon [GlucaGen] 1 mg IM PRN PRN
Guaifenesin Solution [Robitussin] 100 mg PO Q6HPRN PRN
Insulin Aspart Corrective Low [Novolog Flexpen-Low Resistance] See Protocol SC AC
Insulin Aspart [NOVOLOG vial] 8 units SC AC
Ipratropium/Albuterol Sulfate [Duoneb] 3 ml INH R Q6HPRN PRN
Lorazepam [Ativan] 1 mg PO DAILYPRN PRN
Ondansetron Injectable [Zofran] 4 mg IV Q6HPRN PRN
01/05/25 19:49
Activity As Directed
Activity Level: Out of Bed-Early Mobility
Bedside Glucose Monitoring As Directed
Frequency: AC&HS
Additional Instructions:: Change to q6h if pt on TPN, tube feeding or not eating
Bladder Scan As Directed
Follow Bladder Retention/Intermittent Cath Algorithm?: Yes
PRN if no void in __ hours: 6
Frequency: Per Retention Algorithm
If Bladder Scan Result >: 400
then:: Straight cath
Intake/ Output As Directed
Frequency: Per unit guidelines
Straight Cath As Directed
Frequency: Per Retention Algorithm
Additional Instructions: straight cath as needed per acute urinary retention algorithm for 24 hrs
Additional Instructions: for bladder scan greater than 400 mL
Vital Signs As Directed
Frequency: Per unit guidelines
Weight As Directed
Frequency: Once
DX Deep Vein Thrombosis Video Routine
01/05/25 20:00
Metformin Extended Release [Glucophage Xr Extended Release] 1,000 mg PO BID AT 0800,1700
01/05/25 20:02
Benzocaine/Menthol [Anesthetic Lozenge] 1 lozenge PO Q2HPRN PRN
01/05/25 20:07
Tramadol HCl [Ultram] 25 mg PO HSPRN PRN
01/05/25 20:53
Lactic Acid Q4H
Comment: repeat q4 hours x 4 or until less than 2 mmol/L
01/05/25 22:00
Cefepime HCl [Maxipime] 1,000 mg IV Q8H
Divalproex Delayed Rel. 12 Hr [Depakote (12 Hr Release)] 1,500 mg PO HS
Lorazepam [Ativan] 1 mg PO HS
Melatonin 3 mg PO HS
Mirtazapine [Remeron] 45 mg PO HS
Quetiapine Fumarate [Seroquel] 12.5 mg PO HS
Quetiapine Fumarate [Seroquel] 200 mg PO HS
Rosuvastatin Calcium [Crestor] 40 mg PO HS
Sennosides [Senokot] 8.6 mg PO HS
insulin glargine [Lantus Solostar U-100 Insulin] 27 unit SC HS
01/05/25 23:49
Lactic Acid Q4H
Comment: repeat q4 hours x 4 or until less than 2 mmol/L
01/06/25 07:49
Lactic Acid Q4H
Comment: repeat q4 hours x 4 or until less than 2 mmol/L
01/06/25 08:00
Aspirin Chewable [Low Strength Aspirin] 81 mg PO DAILY
Budesonide/Formoterol 160/4.5 [Symbicort 160/4.5 Mcg Inhaler] 2 puff INH R BID
FOLic ACID [Folvite] 0.8 mg PO DAILY
Metoprolol Xl [Toprol Xl] 25 mg PO DAILY
Pantoprazole [Protonix] 20 mg PO DAILY
Sitagliptin Phosphate [Januvia] 50 mg PO DAILY
Thiamine HCl [Vitamin B1] 100 mg PO DAILY
01/06/25 08:23
Complete Blood Count/No Diff IN AM
Comprehensive Metabolic Panel IN AM
Glycohemoglobin (HgbA1c) IN AM
Lactic Acid Q4H
Comment: repeat q4 hours x 4 or until less than 2 mmol/L
Abnormal Lab Results
01/05/25
13:56
RBC 3.80 L 10^6/uL
(4.70-6.10)
Hgb 12.2 L g/dL
(13.0-18.0)
Hct 36.3 L %
(39.0-52.0)
MCV 95.5 H fL
(80.0-94.0)
MCH 32.1 H pg
(27.0-31.0)
RDW 15.6 H %
(11.5-14.5)
Abs Immat Gran (auto) 0.1 H 10^3/uL
(0-0.05)
Absolute Neuts (auto) 8.4 H 10^3/uL
(1.4-6.5)
Absolute Lymphs (auto) 0.6 L 10^3/uL
(1.2-3.4)
Neutrophils % 91.1 H %
(42.2-75.2)
Lymphocytes % 6.7 L %
(20.5-51.1)
Monocytes % 1.2 L %
(1.7-9.3)
BUN 7 L mg/dl
(9-20)
Total Protein 6.1 L g/dl
(6.3-8.2)
Albumin 3.1 L g/dl
(3.5-5.0)
Urine Ketones 2+ A
(Negative)
Ur Occult Blood Reflex 4+ A
(Negative)
Urine Bilirubin 1+ A
(Negative)
Urine Urobilinogen 3+ A
(Neg - 1+)
Leukocyte Esterase Rfl 2+ A
(Negative)
Urine RBC 60-70 A /HPF
(0-2)
Urine WBC (Reflex) 60-70 A /HPF
(0-5)
Urine Bacteria (Reflex) Moderate A
(Negative)
Urine Glucose 3+ A
(Negative)
Urine Albumin (Reflex) 3+ A
(Neg - Trace)
01/05/25 13:56
01/05/25 13:56
Vital Signs
Initial and Last Documented VS:
Initial Vital Signs
Temp Pulse Resp BP Pulse Ox
101.5 F H 111 18 136/58 94
01/05/25 13:33 01/05/25 13:33 01/05/25 13:33 01/05/25 13:33 01/05/25 13:33
Last Documented Vital Signs
Temp Pulse Resp BP Pulse Ox
98.6 F 88 18 120/63 100
01/06/25 07:26 01/06/25 08:47 01/06/25 07:26 01/06/25 08:47 01/06/25 07:26
*Critical Care Note
Total Time (30-74mins, 75-104mins- exclusive of procedures): 31
Update Note
Update Note:
Patient presents to the Emergency Department with ____fever and chills
Number and Complexity of Problems Addressed at the Encounter
� Chronic conditions affecting care:
� Acute Exacerbation and/or Progression of Chronic Illness:
� Differential Diagnosis includes:but not limitd to urosepsis, pna, covid, flu,etc etc etc.
Amount and/or Complexity of Data to be Reviewed and Analyzed
� I performed an independent evaluation of and my interpretation is:
EKG: Read by me, sinus tachycardia, LAD, no acute ischemia
CT:
Xrays:cxr read by rdas min bilat effusions, otherwise nad
Laboratory Studies: Normal white blood cell count, baseline anemia, mild left shift, flu and COVID-negative, lactic 2.0, urine suggestive of infection
Other:
� Review of other/old records reveals: March 2024 pt admitted with etoh cindi, discharged to snf
� Clinical information was obtained by an independent historian:
� Prescriptions/Medications Considered but not given:
� Further testing considered but not performed:
Risk of Complications and/or Morbidity or Mortality of Patient Management
� Social determinants of health affecting care:
� Discussion with other providers (PCP, Hospitalists, Consultants, etc):
� Escalation of care including admission/observation vs risk of discharge considered: Chest x-ray pending, I strongly suspect urosepsis as a cause of patient's clinical presentation. In reviewing prior hospital admission for
EtOH withdrawal, risk for withdrawal while here was presented to the hospitalist as well as the overall case. Blood pressure remained stable with IV fluids, will write for antibiotics at this time.
ED Attending Note
-
Portions of this chart may have been created with voice recognition software.� Occasional wrong word or��sound alike� substitutions may have occurred due to the inherent limitations of voice recognition software.
Discharge Plan
Departure
Patient Disposition: Admit
Date of Disposition: 01/05/25
Time of Disposition: 15:28
Presentation/result/management discussed w/ accepting MD/DO: Hospitalist
Condition: Fair
Discharge Problem:
urosepsis
Interventions
Interventions:
*Risk Screen - Suicide Last Done: 01/05/25 19:58
*General Assessment Last Done: 01/05/25 13:33
*Neglect/Abuse Screening Last Done: 01/05/25 13:33
*ED COVID-19 Vaccine History Last Done: 01/05/25 19:58
*Nursing Disposition Last Done: 01/05/25 19:46
ED-Male Genitourinary Assessment Last Done: 01/05/25 14:07
Discharge Date and Time
Discharge Date/Time: 01/05/25 19:47
[2025-01-05 14:28] LABS: % Basophils 0.2 % (0-2); % Eosinophils 0.3 % (0-6); % Immature Granulocytes 0.5 % (0-0.5); % Lymphocytes 6.7 % (20.5-51.1); % Monocytes 1.2 % (1.7-9.3); % Neutrophils 91.1 % (42.2-75.2); Absolute Immature Granulocytes 0.1 10^3/uL (0-0.05); Absolute Lymphocytes 0.6 10^3/uL (1.2-3.4); Absolute Monocytes 0.1 10^3/uL (0.1-0.6); Absolute Neutrophils 8.4 10^3/uL (1.4-6.5); Hematocrit 36.3 % (39.0-52.0); Hemoglobin 12.2 g/dL (13.0-18.0); Mean Corp Hgb Conc. 33.6 g/dL (33.0-37.0); Mean Corpuscular Hgb 32.1 pg (27.0-31.0); Mean Corpuscular Volume 95.5 fL (80.0-94.0); Mean Platelet Volume 9.2 fL (7.4-10.4); Nucleated Red Blood Cells % 0.2 % (-); Platelet Count 164 10^3/uL (130-400); Red Cell Dist. Width 15.6 % (11.5-14.5); White Blood Cell Count 9.2 10^3/uL (4.8-10.8)
[2025-01-05 14:31] LABS: Urine Albumin 3+ (Neg - Trace); Urine Bilirubin 1+ (Negative); Urine Character Slightly Cloudy (Clear); Urine Color Amber; Urine Glucose 3+ (Negative); Urine Ketone 2+ (Negative); Urine Leukocyte 2+ (Negative); Urine Nitrite Negative (Negative); Urine Occult Blood 4+ (Negative); Urine Urobilinogen 3+ (Neg - 1+)
[2025-01-05 14:35] LABS: ALT (SGPT) 17 U/L (0-50); AST (SGOT) 20 U/L (17-59); Albumin 3.1 g/dl (3.5-5.0); Alkaline Phosphatase 72 U/L (38-126); Blood Urea Nitrogen 7 mg/dl (9-20); Calcium 8.5 mg/dl (8.4-10.2); Carbon Dioxide 29 mmol/L (22-30); Chloride 100 mmol/L (98-107); Estimated Creatinine Clearance 124 ml/min; Glucose 94 mg/dl (70-99); Potassium 3.8 mmol/L (3.5-5.1); Sodium 135 mmol/L (135-145); Total Bilirubin 0.5 mg/dl (0.2-1.3); Total Protein 6.1 g/dl (6.3-8.2); eGFR > 60.00
[2025-01-05 14:52] LABS: Urine Squamous Cell >30 /LPF (Few)
[2025-01-05 14:54] LABS: Urine Red Blood Cell 60-70 /HPF (0-2); Urine White Cell 60-70 /HPF (0-5)
[2025-01-05 14:55] LABS: COVID-19 Antigen Negative (Negative); Urine Bacteria Moderate (Negative)
[2025-01-05 15:00] VITALS: BP 163/75
[2025-01-05] MEDS: TORADOL 15 MG IV (15:06)
--- NOTE | 2025-01-05 15:56 | HPS.HSE ---
Family Physician
-
Family Physician: Reno Don
Chief Complaint
-
Urinary symptoms
History of Present Illness
69 y/o M, hx of COPD, HTN, IDDM, Seizures, Hx of psych (bipolar, panic disorder, depression) presents to ER with rigors/chills and excessive thirst. He does report urinary urgency and frequency but no burning or pain. Patient felt fine this morning
but developed symptoms rather acutely. No chest pain/SOB. No N/V, or abd pain. No back or flank pain. No other complaints.
in ER, persistently febrile and felt to have urosepsis. Admitted with IVF and IV abx plan
Medical History
Past Medical History
Past Medical History: Reports Other (COPD, HTN, IDDM, Seizures, Hx of psych (bipolar, panic disorder, depression))
Past Surgical History: Reports Other (Other (partial gastrectomy 3/4 stomach removed after drinking bleach, hernia repair))
Social History
Tobacco: Former Smoker
Alcohol: Chronic Alcoholic (none since alf admission 6 months ago)
Drug: None
Personal:
Living: [facility]
Employment: Disabled
Family History
Family History: Not pertinent
Allergies / Home Medications
Allergies reflects when Allergies were last updated in [facility].
Home Medications with original date entered in [facility]
Allergy/Medication List:
Allergies
Allergy/AdvReac Type Severity Reaction Status Date / Time
iodine [Iodine] Allergy flushing Verified 03/24/24 16:49
Penicillins Allergy Hives, Verified 03/24/24 16:49
flushing
venom-honey bee Allergy Anaphylaxis Verified 03/24/24 16:49
[bee venom (honey bee)]
Home Medications
aspirin 81 mg chewable tablet 81 mg PO DAILY Blood clot prevention/tx 03/27/23
thiamine HCl (vitamin B1) 100 mg tablet (Vitamin B-1) 100 mg PO DAILY Supplement 03/27/23
metoprolol succinate 25 mg tablet,extended release 24 hr 25 mg PO DAILY 30 days #30 tabs 03/29/23
cholecalciferol (vitamin D3) 50 mcg (2,000 unit) tablet (Vitamin D3) 1,250 mcg PO Q2W Supplement 12/23/23
rosuvastatin 40 mg tablet 40 mg PO HS High Cholesterol 12/23/23
folic acid 800 mcg tablet 0.8 mg PO DAILY Supplement 12/24/23
sennosides 8.6 mg tablet (senna) 8.6 mg PO HS Constipation 12/24/23
metformin 1,000 mg tablet,extended release 24hr (osmotic) 1,000 mg PO BID Diabetes 02/24/24
insulin aspart U-100 100 unit/mL subcutaneous solution (Novolog U-100 Insulin aspart) 8 unit SC AC Diabetes 04/03/24
melatonin 3 mg tablet 3 mg PO HS sleep 04/03/24
quetiapine 100 mg tablet 200 mg (2 x 100 mg) PO HS #30 tabs 04/11/24
Diclona Gel 1-4.5% 1 applic topical DAILYPRN PRN bl knee 01/05/25
acetaminophen 325 mg tablet (Tylenol) 650 mg PO Q4HPRN PRN mildpain 01/05/25
bisacodyl 10 mg rectal suppository (Dulcolax (bisacodyl)) 10 mg DE DAILYPRN PRN if no bm aftr mom 01/05/25
calcium carbonate 600 mg PO Q6HPRN PRN heartburn 01/05/25
divalproex 500 mg tablet,delayed release 150 mg PO HS 01/05/25
guaifenesin 100 mg/5 mL oral liquid 100 mg PO Q6HPRN PRN cough 01/05/25
hexylresorcinol 2.4 mg lozenges 1 kaitlin mucous membrane Q2HPRN PRN cough 01/05/25
insulin glargine 100 unit/mL (3 mL) subcutaneous pen (Lantus Solostar U-100 Insulin) 27 unit SC HS 01/05/25
ipratropium 0.5 mg-albuterol 3 mg (2.5 mg base)/3 mL nebulization soln 3 ml inhalation R Q6HPRN PRN sob 01/05/25
lorazepam 1 mg tablet 1 mg PO DAILYPRN PRN anixety 01/05/25
lorazepam 1 mg tablet 1 mg PO HS 01/05/25
magnesium hydroxide 400 mg/5 mL oral suspension (Milk of Magnesia) 2,400 mg PO [id number] PRN constipation 01/05/25
mirtazapine 45 mg tablet 45 mg PO HS 01/05/25
mometasone-formoterol HFA 200 mcg-5 mcg/actuation aerosol inhaler (Dulera) 2 puff inhalation R BID 01/05/25
ondansetron HCl 4 mg tablet 4 mg PO [id number] PRN nausea 01/05/25
pantoprazole 20 mg tablet,delayed release (Protonix) 20 mg PO DAILY 01/05/25
quetiapine 25 mg tablet (Seroquel) 12.5 mg PO HS 01/05/25
simethicone 80 mg chewable tablet 80 mg PO Q6HPRN PRN gas pains 01/05/25
sitagliptin phosphate 50 mg tablet (Januvia) 50 mg PO DAILY 01/05/25
sodium chloride 0.65 % nasal spray aerosol 1 spray intranasal Q4HPRN PRN epistaxis 01/05/25
sodium phosphates 19 gram-7 gram/118 mL enema (Fleet Enema) 118 ml DE DAILYPRN PRN if no bm aftr dulcalax 01/05/25
tramadol 25 mg tablet 25 mg PO HSPRN PRN moderate pain 01/05/25
Review of Systems
-
A 12 point ROS was completed and negative except as noted: Yes
Physical Exam
Vital Signs
Vital Signs
Temp Pulse Resp BP Pulse Ox
101.9 F H 109 23 163/75 98
01/05/25 15:25 01/05/25 15:15 01/05/25 15:15 01/05/25 15:00 01/05/25 15:15
Physical Exam
General: No Apparent Distress
HEENT: NormoCephalic and Anicteric
Respiratory: No Wheezes
Cardiac: S1/S2 and Regular Rhythm
GI: Soft and Non Tender
Neuro: AO x 3
Hematologic/Lymphatic: No Lymphadenopathy
Psych: Calm
Laboratory Results
-
01/05/25 13:56
01/05/25 13:56
Laboratory Results
Lactic Acid 2.0 mmol/L (0.7-2.0) 01/05/25 13:56
Total Bilirubin 0.5 mg/dl (0.2-1.3) 01/05/25 13:56
AST 20 U/L (17-59) 01/05/25 13:56
ALT 17 U/L (0-50) 01/05/25 13:56
Alkaline Phosphatase 72 U/L (38-126) 01/05/25 13:56
Data Reviewed
-
Diagnostic Radiology: Report Reviewed by me
Lab Data: Labs Reviewed by me
Impression/Plan
-
Assessment:
Sepsis present on arrival (tachycardia, fever)
UTI
- continue sepsis protocol IVF and maintenance IVF
- start Cefepime, day 1 - follow cultures (blood, urine)
- bladder scans/SC protocol in case of retention
COPD
- hold Dulera
- prn nebs
Essential HTN
- continue BB
IDDM
- diabetic diet
- continue basal/bolus+SSI
- continue Metformin, Januvia
- accu-checks
- check A1c
Hx of Seizures
Hx of psychiatry disorders (bipolar, panic disorder, depression)
- continue Remeron/Seroquel
- continue Depakote
Chronic back pain
HX of epilepsy/seizures
Former smoker
GERD
hx of gastrectomy
- continue PPI
HLD - statin
DVT ppx: Lovenox
Code: Full
[2025-01-05] MEDS: AZACTAM 2000 MG IV (16:06)
[2025-01-05 20:00] VITALS: BP 123/77; BMI 30.7
[2025-01-05] MEDS: SEROQUEL 200 MG PO (21:28)
[2025-01-05] MEDS: LOVENOX 40 MG SC (21:28)
[2025-01-05] MEDS: SENOKOT 8.6 MG PO (21:28)
[2025-01-05] MEDS: ATIVAN 1 MG PO (21:29)
[2025-01-05] MEDS: DEPAKOTE (12 HR RELEASE) 1500 MG PO (21:29)
[2025-01-05] MEDS: MELATONIN 3 MG PO (21:29)
[2025-01-05] MEDS: REMERON 45 MG PO (21:30)
[2025-01-05] MEDS: GLUCOPHAGE XR EXTENDED RELEASE 1000 MG PO (21:30)
[2025-01-05] MEDS: SEROQUEL 12.5 MG PO (21:31)
[2025-01-05] MEDS: CRESTOR 40 MG PO (21:31)
[2025-01-05] MEDS: MAXIPIME 1000 MG IV (21:32)
[2025-01-05] MEDS: MAXIPIME IV (21:32)
[2025-01-05 21:35] LABS: Glucose - Point of Care 194 mg/dl (70-99)
[2025-01-05] MEDS: STERILE WATER FOR INJECTION 10 ML IV (21:36)
[2025-01-05] MEDS: NSS 1000 IV (21:36)
[2025-01-05] MEDS: LANTUS 0.27 UNITS SC (22:42)
[2025-01-05 23:00] VITALS: BP 112/66
[2025-01-06 01:37] LABS: Lactic Acid 2.2 mmol/L (0.7-2.0)
[2025-01-06] MEDS: SYMBICORT 160/4.5 MCG INHALER 2 PUFF INH ×2 (06:10→20:17)
[2025-01-06] MEDS: MAXIPIME 1000 MG IV ×3 (06:23→21:42)
[2025-01-06] MEDS: STERILE WATER FOR INJECTION 10 ML IV ×3 (06:23→21:42)
[2025-01-06 07:26] VITALS: BP 120/63
[2025-01-06 07:43] LABS: Glucose - Point of Care 112 mg/dl (70-99)
[2025-01-06 08:44] LABS: Lactic Acid 2.3 mmol/L (0.7-2.0)
[2025-01-06] MEDS: FOLVITE 0.8 MG PO (08:46)
[2025-01-06] MEDS: VITAMIN B1 100 MG PO (08:46)
[2025-01-06] MEDS: LOW STRENGTH ASPIRIN 81 MG PO (08:46)
[2025-01-06] MEDS: JANUVIA 50 MG PO (08:46)
[2025-01-06] MEDS: GLUCOPHAGE XR EXTENDED RELEASE 1000 MG PO ×2 (08:47→17:46)
[2025-01-06] MEDS: TOPROL XL 25 MG PO (08:47)
[2025-01-06] MEDS: PROTONIX 20 MG PO (08:47)
[2025-01-06 08:58] LABS: Hematocrit 30.8 % (39.0-52.0); Hemoglobin 10.4 g/dL (13.0-18.0); Mean Corp Hgb Conc. 33.8 g/dL (33.0-37.0); Mean Corpuscular Volume 94.8 fL (80.0-94.0); Mean Platelet Volume 10.4 fL (7.4-10.4); Platelet Count 148 10^3/uL (130-400); Red Blood Cell Count 3.25 10^6/uL (4.70-6.10); Red Cell Dist. Width 15.9 % (11.5-14.5); White Blood Cell Count 15.8 10^3/uL (4.8-10.8)
[2025-01-06 09:34] LABS: Glycohemoglobin (HgbA1c) 6.3 % (4.0-5.6)
[2025-01-06 09:41] LABS: ALT (SGPT) 13 U/L (0-50); AST (SGOT) 17 U/L (17-59); Albumin 2.3 g/dl (3.5-5.0); Alkaline Phosphatase 44 U/L (38-126); Blood Urea Nitrogen 16 mg/dl (9-20); Calcium 7.6 mg/dl (8.4-10.2); Carbon Dioxide 25 mmol/L (22-30); Chloride 105 mmol/L (98-107); Estimated Creatinine Clearance 122 ml/min; Glucose 85 mg/dl (70-99); Potassium 4.4 mmol/L (3.5-5.1); Sodium 134 mmol/L (135-145); Total Bilirubin 0.5 mg/dl (0.2-1.3); Total Protein 4.9 g/dl (6.3-8.2); eGFR > 60.00
[2025-01-06] MEDS: NOVOLOG FLEXPEN 8 UNITS SC ×2 (09:50→13:38)
[2025-01-06] MEDS: NSS 1000 IV ×2 (10:21→22:55)
[2025-01-06 12:14] LABS: Glucose - Point of Care 137 mg/dl (70-99)
--- NOTE | 2025-01-06 13:09 | W.PN.HOSP.TC ---
Today's Communication/Plan
-
continue IVF, trend lactate levels
continue Cefepime, day 2 - follow cultures
Assessment / Plan
Assessment / Plan
Assessment:
Sepsis present on arrival (tachycardia, fever)
E. coli UTI
- s/p sepsis protocol IVF. continue maintenance IVF. trend lactic acidosis.
- continue Cefepime, day 2 - follow cultures (blood, urine)
- follow WBC and fever curve
- bladder scans/SC protocol in case of retention
COPD
- hold Dulera
- prn nebs
Essential HTN
- continue BB
IDDM
- diabetic diet
- continue basal/bolus+SSI
- continue Metformin, Januvia
- accu-checks
- A1c 6.3%
Hx of Seizures
Hx of psychiatry disorders (bipolar, panic disorder, depression)
- continue Remeron/Seroquel
- continue Depakote
Chronic back pain
HX of epilepsy/seizures
Former smoker
GERD
hx of gastrectomy
- continue PPI
HLD - statin
DVT ppx: Lovenox
Code: Full
Anticipated Discharge: > 48 hours
Subjective/Interval History
-
Date of Service: January 06, 2025
feels tired
no fevers or chills
denies flank pain, suprapubic pains
Objective Data
-
Labs:
Laboratory Results
01/06/25
08:23
WBC 15.8 H
Hgb 10.4 L
Hct 30.8 L
Plt Count 148
Sodium 134 L
Potassium 4.4
Chloride 105
Carbon Dioxide 25
BUN 16
Creatinine 0.7
Glucose 85
Calcium 7.6 L
Total Bilirubin 0.5
AST 17
ALT 13
Alkaline Phosphatase 44
Vital Signs:
Vital Signs
Temp Pulse Resp BP Pulse Ox
98.6 F 88 18 120/63 100
01/06/25 07:26 01/06/25 08:47 01/06/25 07:26 01/06/25 08:47 01/06/25 07:26
I&O
01/05/25 01/06/25 01/07/25
06:59 06:59 06:59
Intake Total 1280 / 1280
Balance 1280 / 1280
Physical Exam
-
General: No Apparent Distress
HEENT: Normocephalic and Atraumatic
Respiratory: Negative Wheezes
Cardiac: Regular Rhythm and S1/S2
GI: Soft and Nontender
Musculoskeletal: No Edema
Neuro: AO x 3
Hematologic / Lymphatic: No Lymphadenopathy
Psych: Calm
Data Reviewed
-
Total Time Spent with Patient (in minutes): 44
Labs: Labs Reviewed by me
[2025-01-06 13:32] LABS: Lactic Acid 2.4 mmol/L (0.7-2.0)
[2025-01-06] MEDS: NSS IV (13:41)
--- NOTE | 2025-01-06 14:01 | CM ---
loan and credit manager reviewed patient's chart and met with patient and patient was admitted from [facility], patient was placed at nursing facility after protective services reviewed his living situation at [facility] and felt patient would
do better in a controlled setting. Patient reports that he has been at [facility] for about 6 months. Patient states he has been able to ambulate with a cane at nursing facility.
PCP: Dr Reno Don
Plan; Patient to return to [facility] when stable.
Report # [phone] - [facility] nurses station
[2025-01-06 15:42] LABS: Glucose - Point of Care 147 mg/dl (70-99)
[2025-01-06 15:58] VITALS: BP 136/70
[2025-01-06] MEDS: NOVOLOG FLEXPEN SC ×2 (17:44→17:49)
[2025-01-06] MEDS: LOVENOX 40 MG SC (17:45)
[2025-01-06 21:32] LABS: Glucose - Point of Care 78 mg/dl (70-99)
[2025-01-06] MEDS: LANTUS SC (21:38)
[2025-01-06] MEDS: ATIVAN 1 MG PO (21:39)
[2025-01-06] MEDS: REMERON 45 MG PO (21:40)
[2025-01-06] MEDS: SENOKOT 8.6 MG PO (21:40)
[2025-01-06] MEDS: CRESTOR 40 MG PO (21:41)
[2025-01-06] MEDS: DEPAKOTE (12 HR RELEASE) 1500 MG PO (21:41)
[2025-01-06] MEDS: MELATONIN 3 MG PO (21:42)
[2025-01-06] MEDS: SEROQUEL 12.5 MG PO (21:43)
[2025-01-06] MEDS: SEROQUEL 200 MG PO (21:43)
[2025-01-06 23:42] VITALS: BP 141/73
--- NOTE | 2025-01-07 02:45 | DOWNTIME ---
There was a [employer] Client Pricing Supervisor Downtime on 01/07/2025 from 0100 to 01/07/2024 at 0235 . Downtime documentation of patient's care, including medication administrations, has been reconciled in the electronic record per guidelines. Refer to the
patient's paper chart under the miscellaneous tab to see printed paper medication records and downtime forms.
[2025-01-07] MEDS: MAXIPIME 1000 MG IV ×2 (06:00→13:30)
[2025-01-07] MEDS: STERILE WATER FOR INJECTION 10 ML IV ×2 (06:00→13:30)
[2025-01-07 07:09] VITALS: BP 137/77
[2025-01-07 07:58] LABS: Glucose - Point of Care 71 mg/dl (70-99)
[2025-01-07 08:00] LABS: % Basophils 0.3 % (0-2); % Eosinophils 1.4 % (0-6); % Immature Granulocytes 0.8 % (0-0.5); % Lymphocytes 15.3 % (20.5-51.1); % Monocytes 5.7 % (1.7-9.3); % Neutrophils 76.5 % (42.2-75.2); Absolute Eosinophils 0.2 10^3/uL (0-0.7); Absolute Immature Granulocytes 0.1 10^3/uL (0-0.05); Absolute Lymphocytes 1.8 10^3/uL (1.2-3.4); Absolute Monocytes 0.7 10^3/uL (0.1-0.6); Absolute Neutrophils 8.9 10^3/uL (1.4-6.5); Hematocrit 30.1 % (39.0-52.0); Hemoglobin 10.1 g/dL (13.0-18.0); Mean Corp Hgb Conc. 33.6 g/dL (33.0-37.0); Mean Corpuscular Hgb 31.9 pg (27.0-31.0); Mean Platelet Volume 9.4 fL (7.4-10.4); Nucleated Red Blood Cells % 0 % (-); Platelet Count 126 10^3/uL (130-400); Red Blood Cell Count 3.17 10^6/uL (4.70-6.10); Red Cell Dist. Width 15.9 % (11.5-14.5); White Blood Cell Count 11.7 10^3/uL (4.8-10.8)
[2025-01-07] MEDS: SYMBICORT 160/4.5 MCG INHALER 2 PUFF INH (08:13)
[2025-01-07] MEDS: LOW STRENGTH ASPIRIN 81 MG PO (08:46)
[2025-01-07] MEDS: JANUVIA 50 MG PO (08:46)
[2025-01-07] MEDS: VITAMIN B1 100 MG PO (08:46)
[2025-01-07] MEDS: TOPROL XL 25 MG PO (08:46)
[2025-01-07] MEDS: GLUCOPHAGE XR EXTENDED RELEASE 1000 MG PO (08:46)
[2025-01-07] MEDS: FOLVITE 0.8 MG PO (08:46)
[2025-01-07] MEDS: PROTONIX 20 MG PO (08:46)
[2025-01-07 08:51] LABS: Blood Urea Nitrogen 15 mg/dl (9-20); Calcium 7.9 mg/dl (8.4-10.2); Carbon Dioxide 24 mmol/L (22-30); Chloride 108 mmol/L (98-107); Estimated Creatinine Clearance 122 ml/min; Glucose 63 mg/dl (70-99); Potassium 4.1 mmol/L (3.5-5.1); Sodium 132 mmol/L (135-145); eGFR > 60.00
[2025-01-07] MEDS: NOVOLOG FLEXPEN SC (08:53)
[2025-01-07 08:54] LABS: Lactic Acid 2.6 mmol/L (0.7-2.0)
--- NOTE | 2025-01-07 11:16 | CM ---
remedial project manager reviewed patient's chart and spoke with patient's physician and patient has been cleared for discharge today back to [facility].
Report # [phone] - [facility] nurses station
[2025-01-07 11:25] LABS: Glucose - Point of Care 121 mg/dl (70-99)
--- NOTE | 2025-01-07 12:30 | W.PN.HOSP.TC ---
Today's Communication/Plan
-
dc to SNF
Assessment / Plan
Assessment / Plan
Assessment:
Sepsis present on arrival (tachycardia, fever)
E. coli UTI - pansensitive
- s/p sepsis protocol IVF. continue maintenance IVF. trend lactic acidosis although suspect partially elevated from Metformin use (type b lactic acidosis)
- dc on Cefdinir x 11 further days to complete 2 week course
- follow WBC and fever curve
- bladder scans/SC protocol in case of retention
COPD
- hold Dulera
- prn nebs
Essential HTN
- continue BB
IDDM
- diabetic diet
- continue basal/bolus+SSI
- continue Metformin, Januvia
- accu-checks
- A1c 6.3%
Hx of Seizures
Hx of psychiatry disorders (bipolar, panic disorder, depression)
- continue Remeron/Seroquel
- continue Depakote
Chronic back pain
HX of epilepsy/seizures
Former smoker
GERD
hx of gastrectomy
- continue PPI
HLD - statin
DVT ppx: Lovenox
Code: Full
More than 30 minutes spent in discharge including
Final examination of the patient
Summarizing hospital stay
Instructions for continuing care to all relevant caregivers
Preparation of discharge records, prescriptions, and referral forms
Total time spent (in minutes):41
Anticipated Discharge: Today
Subjective/Interval History
-
Date of Service: January 07, 2025
denies any complaints at present, just feels tired
Objective Data
-
Labs:
Laboratory Results
01/07/25
07:51
WBC 11.7 H
Hgb 10.1 L
Hct 30.1 L
Plt Count 126 L
Sodium 132 L
Potassium 4.1
Chloride 108 H
Carbon Dioxide 24
BUN 15
Creatinine 0.7
Glucose 63 L
Calcium 7.9 L
Vital Signs:
Vital Signs
Temp Pulse Resp BP Pulse Ox
98.2 F 85 16 137/77 97
01/07/25 07:09 01/07/25 08:46 01/07/25 08:15 01/07/25 08:46 01/07/25 08:15
I&O
01/06/25 01/07/25 01/08/25
06:59 06:59 06:59
Intake Total 1280 / 1280 1919 / 1919
Balance 1280 / 1280 1919 / 1919
Physical Exam
-
General: No Apparent Distress
HEENT: Normocephalic and Atraumatic
Respiratory: Negative Wheezes
Cardiac: Regular Rhythm and S1/S2
GI: Soft and Nontender
Musculoskeletal: No Edema
Neuro: AO x 3
Hematologic / Lymphatic: No Lymphadenopathy
Psych: Calm
Data Reviewed
-
Total Time Spent with Patient (in minutes): 41
Labs: Labs Reviewed by me
--- NOTE | 2025-01-07 12:37 | W.DS.TRANS ---
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
-
Discharge Instructions:
Discharge Diagnosis/Procedures complicated UTI in male with sepsis
Diet Diabetic, Carb Controlled
Activity As tolerated
Blood Work repeat BMP and CBC in 5 days
Other Services PT,OT
Instructions:
Stand-Alone Forms:
Changes to Home Medications: No
Discharge Medications:
DC Medications w/original date entered in [facility]
aspirin 81 mg chewable tablet 81 mg PO DAILY Blood clot prevention/tx 03/27/23
thiamine HCl (vitamin B1) 100 mg tablet (Vitamin B-1) 100 mg PO DAILY Supplement 03/27/23
metoprolol succinate 25 mg tablet,extended release 24 hr 25 mg PO DAILY 30 days #30 tabs 03/29/23
cholecalciferol (vitamin D3) 50 mcg (2,000 unit) tablet (Vitamin D3) 1,250 mcg PO Q2W Supplement 12/23/23
rosuvastatin 40 mg tablet 40 mg PO HS High Cholesterol 12/23/23
folic acid 800 mcg tablet 0.8 mg PO DAILY Supplement 12/24/23
sennosides 8.6 mg tablet (senna) 8.6 mg PO HS Constipation 12/24/23
metformin 1,000 mg tablet,extended release 24hr (osmotic) 1,000 mg PO BID Diabetes 02/24/24
insulin aspart U-100 100 unit/mL subcutaneous solution (Novolog U-100 Insulin aspart) 8 unit SC AC Diabetes 04/03/24
melatonin 3 mg tablet 3 mg PO HS sleep 04/03/24
quetiapine 100 mg tablet 200 mg (2 x 100 mg) PO HS #30 tabs 04/11/24
Diclona Gel 1-4.5% 1 applic topical DAILYPRN PRN bl knee 01/05/25
acetaminophen 325 mg tablet (Tylenol) 650 mg PO Q4HPRN PRN mildpain 01/05/25
bisacodyl 10 mg rectal suppository (Dulcolax (bisacodyl)) 10 mg [place] DAILYPRN PRN if no bm aftr mom 01/05/25
calcium carbonate 600 mg PO Q6HPRN PRN heartburn 01/05/25
divalproex 500 mg tablet,delayed release 150 mg PO HS Neurological Condition 01/05/25
guaifenesin 100 mg/5 mL oral liquid 100 mg PO Q6HPRN PRN cough 01/05/25
hexylresorcinol 2.4 mg lozenges 1 kaitlin mucous membrane Q2HPRN PRN cough 01/05/25
insulin glargine 100 unit/mL (3 mL) subcutaneous pen (Lantus Solostar U-100 Insulin) 27 unit SC HS Diabetes 01/05/25
ipratropium 0.5 mg-albuterol 3 mg (2.5 mg base)/3 mL nebulization soln 3 ml inhalation R Q6HPRN PRN sob 01/05/25
magnesium hydroxide 400 mg/5 mL oral suspension (Milk of Magnesia) 2,400 mg PO [id number] PRN constipation 01/05/25
mirtazapine 45 mg tablet 45 mg PO HS Mental Health/Anxiety 01/05/25
mometasone-formoterol HFA 200 mcg-5 mcg/actuation aerosol inhaler (Dulera) 2 puff inhalation R BID Lung/Breathing Issues 01/05/25
ondansetron HCl 4 mg tablet 4 mg PO [id number] PRN nausea 01/05/25
pantoprazole 20 mg tablet,delayed release (Protonix) 20 mg PO DAILY Gastrointestinal Issue 01/05/25
quetiapine 25 mg tablet (Seroquel) 12.5 mg PO HS Mental Health/Anxiety 01/05/25
simethicone 80 mg chewable tablet 80 mg PO Q6HPRN PRN gas pains 01/05/25
sitagliptin phosphate 50 mg tablet (Januvia) 50 mg PO DAILY Diabetes 01/05/25
sodium chloride 0.65 % nasal spray aerosol 1 spray intranasal Q4HPRN PRN epistaxis 01/05/25
sodium phosphates 19 gram-7 gram/118 mL enema (Fleet Enema) 118 ml [place] DAILYPRN PRN if no bm aftr dulcalax 01/05/25
cefdinir 300 mg capsule 300 mg PO BID #22 caps 01/07/25
lorazepam 1 mg tablet 1 mg PO DAILYPRN PRN anixety #3 tabs 01/07/25
lorazepam 1 mg tablet 1 mg PO HS Mental Health/Anxiety #3 tabs 01/07/25
tramadol 25 mg tablet 25 mg PO HSPRN PRN moderate pain #3 tabs 01/07/25
Home Medication Changes
Pending Results: No
Total time spent discharging patient (in min): 41
[2025-01-07] MEDS: NOVOLOG FLEXPEN 8 UNITS SC (13:28)
[2025-01-07] MEDS: NSS IV (13:35)
[2025-01-07 15:21] VITALS: BP 133/77
== END 2025-01-07 15:22 | DRG 872 ==
LOC: 4 WEST ACU 16:21
PROVIDERS: Emergency Medicine; Nurse Practitioner Family; ADMITTING PHYSICIAN Internal Medicine; EMERGENCY PHYSICIAN Emergency Medicine; FAMILY PHYSICIAN Internal Medicine
DX: A41.51 Sepsis due to Escherichia coli [E. coli] (principal); N39.0 Urinary tract infection, site not specified; E87.20 Acidosis, unspecified; J44.9 Chronic obstructive pulmonary disease, unspecified; K21.9 Gastro-esophageal reflux disease without esophagitis; E11.9 Type 2 diabetes mellitus without complications; E78.5 Hyperlipidemia, unspecified; I10 Essential (primary) hypertension; F41.0 Panic disorder [episodic paroxysmal anxiety]; F31.9 Bipolar disorder, unspecified; G89.29 Other chronic pain; Z11.52 Encounter for screening for COVID-19; Z88.0 Allergy status to penicillin; Z79.82 Long term (current) use of aspirin; Z79.84 Long term (current) use of oral hypoglycemic drugs; Z79.4 Long term (current) use of insulin; Z79.899 Other long term (current) drug therapy; Z87.891 Personal history of nicotine dependence; Z79.51 Long term (current) use of inhaled steroids
CPT/HCPCS: 71046; 80048; 80053; 81003; 81015; 82962; 83036; 83605; 85025; 85027; 87040; 87070; 87077; 87086; 87186; 87502; 87811; 93005; 94640; 96374; 97162; 99291